=== PATIENT | male | born 1940 | race Caucasian/White ===

== ENCOUNTER → 2018-04-20 10:49 | Outpatient (CLI) | payer MEDICARE, OTHER, SELFPAY ==
[2018-04-20 13:27] LABS: ALB/GLOB Ratio 1.1 RATIO (0.9-2.4); AST(SGOT) 16 U/L (15-37); Alanine Aminotransfer ALT/SGPT 22 U/L (16-61); Albumin, Serum 3.8 g/dL (3.2-5.0); Alkaline Phosphatase 53 U/L (45-117); Anion Gap 11 (5-15); BUN 19 mg/dL (7-18); BUN/Creat Ratio 18.6 RATIO (10-20); Calcium,Total 8.7 mg/dL (8.5-10.1); Chloride 107 mmol/L (98-107); Creatinine, Serum 1.02 mg/dL (0.70-1.30); EST Glomerular Filtration Rate 75 mL/min (>60); Est Glom Filt Rate - Afr Amer 91 mL/min (>60); Globulin 3.4 g/dL (2.2-4.2); Glucose 100 mg/dL (74-106); Potassium 4.3 mmol/L (3.5-5.1); Protein, Total 7.2 g/dL (6.4-8.2); Sodium Level 141 mmol/L (136-145); Thyroid Stim Hormone (TSH) 1.37 uIU/mL (0.358-3.74)
[2018-04-20 13:32] LABS: Basophil# 0.04 X10^3/uL; Basophil% 0.7 % (0-1); Eosinophil# 0.18 X10^3/uL; Eosinophils% 3.3 % (0-5); Hematocrit 44.9 % (40-54); Hemoglobin 14.7 g/dl (13.0-16.5); Lymphocyte % 27.5 % (19-41); Mean Corp Hgb Conc 32.7 g/gl (32-36); Mean Corpuscular Hgb 30.2 pg (27.0-32.0); Mean Corpuscular Volume 92.4 fL (80-94); Mean Platelet Vol. 11.4 fl (6.2-12.0); Monocyte# 0.68 X10^3/uL; Monocyte% 12.5 % (0-10); Neutrophil # 3.04 X10^3/uL (2.7-7.7); Neutrophil % 55.8 % (47-70); Platelet Count 181 K/mm3 (150-450); RBC Distribution Width CV 13.3 % (11.6-14.6); RBC Distribution Width SD 44.6 fl (35.1-43.9); Red Blood Count 4.86 M/mm3 (4.6-6.2); White Blood Count 5.5 K/mm3 (4.4-11.0)
[2018-04-20 13:39] LABS: POSITIVE COUNT NO; POSITIVE DIFFERENTIAL NO; POSITIVE MORPHOLOGY NO
== END ==
PROVIDERS: Family Provider Family Medicine; PCP Family Medicine; Visit Provider Family Medicine
DX: I10 Essential (primary) hypertension (principal); I70.1 Atherosclerosis of renal artery; E78.5 Hyperlipidemia, unspecified
CPT/HCPCS: 36415; 80053; 84443; 85025

== ENCOUNTER → 2019-08-03 10:19 | Outpatient (CLI) | payer MEDICARE, OTHER, SELFPAY ==
[2016-03-13 18:53] VITALS: BMI 28.8
[2019-08-03 12:44] LABS: Absolute Lymphocyte Count 1.41 X10^3/uL (0.83-4.51); Absolute Neutrophil Count 2.8 X10^3/uL (2.0-7.7); Basophil# 0.04 X10^3/uL; Basophil% 0.8 % (0-1); Eosinophil# 0.19 X10^3/uL; Eosinophils% 3.8 % (0-5); Hematocrit 43.7 % (40-54); Hemoglobin 14.2 g/dL (13.0-16.5); Lymphocyte # 1.41 X10^3/ul (4.0); Lymphocyte % 28.3 % (19-41); Mean Corp Hgb Conc 32.5 g/dL (32-36); Mean Corpuscular Hgb 30.1 pg (27.0-32.0); Mean Corpuscular Volume 92.6 fL (80-94); Mean Platelet Vol. 11.2 fl (6.2-12.0); Monocyte# 0.55 X10^3/uL; NRBC Flagged by Analyzer 0 % (0-5); Neutrophil # 2.78 X10^3/uL (2.7-7.7); Neutrophil % 55.9 % (47-70); Platelet Count 190 K/mm3 (150-450); RBC Distribution Width SD 44.2 fl (35.1-43.9); Red Blood Count 4.72 M/mm3 (4.6-6.2)
[2019-08-03 13:11] LABS: ALB/GLOB Ratio 1.1 RATIO (0.9-2.4); AST(SGOT) 17 U/L (15-37); Alanine Aminotransfer ALT/SGPT 27 U/L (16-61); Albumin, Serum 3.9 g/dL (3.2-5.0); Alkaline Phosphatase 69 U/L (45-117); Anion Gap 3 (5-15); BUN 17 mg/dL (7-18); BUN/Creat Ratio 18.7 RATIO (10-20); Calcium,Total 8.6 mg/dL (8.5-10.1); Chloride 107 mmol/L (98-107); Creatinine, Serum 0.91 mg/dL (0.70-1.30); EST Glomerular Filtration Rate 86 mL/min (>60); Est Glom Filt Rate - Afr Amer 104 mL/min (>60); Globulin 3.4 g/dL (2.2-4.2); Glucose 110 mg/dL (74-106); Potassium 4.4 mmol/L (3.5-5.1); Protein, Total 7.3 g/dL (6.4-8.2); Sodium Level 140 mmol/L (136-145); Thyroid Stim Hormone (TSH) 2.32 uIU/mL (0.358-3.74)
[2019-08-05 12:07] LABS: Testosterone, Free 8.19 ng/dL (5.00-21.00)
[2019-08-05 13:44] LABS: Testosterone, % Free 1.91 % (1.50-4.20); Testosterone, Total 429 ng/dL (264-916)
== END ==
PROVIDERS: Family Provider Family Medicine; PCP Family Medicine; Visit Provider Family Medicine
DX: R73.01 Impaired fasting glucose (principal); I10 Essential (primary) hypertension; R68.82 Decreased libido
CPT/HCPCS: 36415; 80053; 84402; 84403; 84443; 85025

== ENCOUNTER → 2019-10-16 11:34 | Outpatient (CLI) | payer MEDICARE, OTHER, SELFPAY ==
[2016-03-13 18:53] VITALS: BMI 28.8
[2019-10-16 16:07] LABS: ALB/GLOB Ratio 1.1 RATIO (0.9-2.4); AST(SGOT) 18 U/L (15-37); Alanine Aminotransfer ALT/SGPT 26 U/L (16-61); Alkaline Phosphatase 63 U/L (45-117); Anion Gap 5 (5-15); BUN 15 mg/dL (7-18); BUN/Creat Ratio 17.9 RATIO (10-20); Calcium,Total 8.9 mg/dL (8.5-10.1); Chloride 107 mmol/L (98-107); Creatinine, Serum 0.84 mg/dL (0.70-1.30); EST Glomerular Filtration Rate 94 mL/min (>60); Est Glom Filt Rate - Afr Amer 113 mL/min (>60); Globulin 3.5 g/dL (2.2-4.2); Glucose 106 mg/dL (74-106); Potassium 4.2 mmol/L (3.5-5.1); Protein, Total 7.5 g/dL (6.4-8.2); Sodium Level 140 mmol/L (136-145); T4 Free Direct 1.07 ng/dL (0.76-1.46); Thyroid Stim Hormone (TSH) 2.31 uIU/mL (0.358-3.74)
[2019-10-16 16:27] LABS: Absolute Lymphocyte Count 1.26 X10^3/uL (0.83-4.51); Absolute Neutrophil Count 3.5 X10^3/uL (2.0-7.7); Basophil# 0.05 X10^3/uL; Basophil% 0.9 % (0-1); Eosinophil# 0.18 X10^3/uL; Eosinophils% 3.3 % (0-5); Hematocrit 43.9 % (40-54); Hemoglobin 14.1 g/dL (13.0-16.5); Lymphocyte # 1.26 X10^3/ul (4.0); Mean Corp Hgb Conc 32.1 g/dL (32-36); Mean Corpuscular Hgb 29.6 pg (27.0-32.0); Mean Corpuscular Volume 92.2 fL (80-94); Mean Platelet Vol. 10.8 fl (6.2-12.0); Monocyte% 9.1 % (0-10); NRBC Flagged by Analyzer 0 % (0-5); Neutrophil # 3.48 X10^3/uL (2.7-7.7); Neutrophil % 63.5 % (47-70); Platelet Count 212 K/mm3 (150-450); RBC Distribution Width CV 13.2 % (11.6-14.6); RBC Distribution Width SD 44.7 fl (35.1-43.9); Red Blood Count 4.76 M/mm3 (4.6-6.2); White Blood Count 5.5 K/mm3 (4.4-11.0)
== END ==
PROVIDERS: PCP Family Medicine; Visit Provider Family Medicine
DX: I10 Essential (primary) hypertension (principal); I70.1 Atherosclerosis of renal artery; G45.9 Transient cerebral ischemic attack, unspecified
CPT/HCPCS: 36415; 80053; 84439; 84443; 85025

== ENCOUNTER → 2019-10-20 08:35 | Outpatient (CLI) | payer MEDICARE, OTHER, SELFPAY ==
--- NOTE | 2019-10-20 08:38 | RDU_ITS ---
Reason For Study: Hx of stents, HTN Right Renal Artery Left Renal Artery Right renal artery ostium Left renal artery ostium 212.2/37.5 RSV/EDV. 144.11/27.5 PSV/EDV. Right renal artery proximal Left renal artery proximal PSV/EDV 186.3/31 PSV/EDV. 141.5/30.1 . Right renal artery mid 208.9/27.8 Left renal artery mid 160.5/31 PSV/EDV. PSV/EDV . Right renal artery distal 90.1/14.8 Left renal artery distal 156.6/31 PSV/EDV. PSV/EDV. Right RAR 2.56. Left RAR 1.97. Right Renal Parenchyma Left Renal Parenchyma Upper Pole Medula 28.9/9.7 PSV/EDV. Left upper pole medulla 33.3/6.9 Right upper pole medulla EDR 0.34 . PSV/EDV . Right upper pole medulla R.I. Left upper pole medulla EDR 0.21 . 0.66 . Left upper pole medulla R.I. 0.79 . Upper [place] Cortx 23.4/6.9 PSV/EDV. UP Cortex 24.5/6.4 PSV/EDV. Right upper pole cortex EDR 0.29 . Left upper pole cortex EDR 0.26 . Right upper pole cortex R.I. 0.70 . Left upper pole cortex R.I. 0.74 . Right lower Pole medulla 35.3/10.6 Left lower Pole medulla 37.7/9.1 PSV/EDV . PSV/EDV . Right lower pole medulla EDR 0.30 . Left lower pole medulla EDR 0.24 . Right lower pole medulla R.I. Left lower pole medulla R.I. 0.76 . 0.70 . Lower Pole Cortx 17.4/4.7 PSV/EDV. Lower Pole Cortex 21.6/6.9 PSV/EDV. Left lower pole cortex EDR 0.27 . Right lower pole cortex EDR 0.32 . Left lower pole cortex R.I. 0.73 . Right lower pole cortex R.I. 0.68 . Left Renal Hilar Right Renal Hilar LT Hilar avg 49/11.6 PSV/EDV . Right Hilar avg 54.4/10.6 PSV/EDV. Left hilar acceleration time 40 Right hilar acceleration time 60 m/sec. m/sec. Left Renal Dimensions Right Renal Dimensions Left kidney size 9.86 cm . Right kidney size 9.07 cm . Left cortical dimension 1.65 cm . Right cortical dimension 1.80 cm . Hypoechoic area on the left kidney measuring 5.46 x 6.02 cm. Area is nonvascular. Aorta Proximal abdominal aorta 1.27 x 1.26 cm . Proximal abdominal aorta peak systolic velocity is 81.5 cm/sec . Distal abdominal aorta 2.54 x 2.62 cm . Distal abdominal aorta peak systolic velocity is 103.4 cm/sec . Interpretation Summary The intra-abdominal aorta is ectatic, though not frankly aneurysmal. Right renal artery velocities are elevated. Left renal artery velocities are normal. Acceleration times are normal bilaterally. Renal-aortic ratios are also bilaterally normal. There is no evidence of hemodynamically significant renal artery stenosis on either side. The right cortical dimension is increased. The left cortical dimension is increased. Kidneys appear normal in size bilaterally. A large, non-vascular, hypoechoic structure is noted on the left kidney, measuring 5.46 cm x 6.02 cm. This probably represents a renal cyst. Clinical correlation is advised. Ordering Physician: Vern Valentin Referring Physician: Vern Valentin Performed By: Scarlet eLach RVT
== END ==
PROVIDERS: PCP Family Medicine; Referring Provider Family Medicine; Visit Provider Family Medicine
DX: I70.1 Atherosclerosis of renal artery (principal); I10 Essential (primary) hypertension; R51 Headache; Z86.73 Personal history of transient ischemic attack (TIA), and cerebral infarction without residual deficits
CPT/HCPCS: 93975

== ENCOUNTER 2020-09-12 09:48 | Outpatient (RCR) | payer MEDICARE, OTHER, SELFPAY ==
[2016-03-13 18:53] VITALS: BMI 28.8
== END 2020-09-12 23:59 ==
LOC: IMMUN 09:48
PROVIDERS: PCP Family Medicine; Visit Provider Family Medicine
DX: Z23 Encounter for immunization (principal)
CPT/HCPCS: 0011A; 0012A; 91301

== ENCOUNTER → 2020-10-07 16:18 | Outpatient (CLI) | payer MEDICARE, OTHER, SELFPAY ==
--- NOTE | 2020-10-07 16:22 | CT_ITS ---
STUDY: CT ABDOMEN WITH CONTRAST REASON FOR EXAM: Male, 80 years old. Upper quadrant mass for 2 weeks. Controlled hypertension.. RADIATION DOSAGE (If Supplied By Facility): CTDIvol = ( 15.84 ) mGy, DLP = ( 610.11 ) mGycm TECHNIQUE: Transaxial images were obtained post I.V. administration of IV 100mL Isovue-300, and oral contrast. Sagittal and coronal images were reconstructed. Individualized dose optimization techniques were used for this CT. COMPARISON: Renal ultrasound October 20, 2019. Renal ultrasound February 13, 2016. FINDINGS: The visualized lung bases are unremarkable. Mild cardiomegaly. Coronary artery calcifications. No pericardial effusion. Scattered hepatic cysts the largest measuring 1.2 cm. Normal gallbladder and extrahepatic biliary system. Normal spleen. Normal pancreas. Normal right adrenal gland. 0.7 cm low-attenuation nodule left adrenal gland suggestive of a myelolipoma. Normal right kidney. 5.2 cm exophytic simple cyst posterior cortex superior pole left kidney not significantly changed since the prior ultrasound. Apparent stents involving the origin of both renal arteries. Stomach is not well distended limiting evaluation. Normal small intestine. Normal colon. The appendix is visualized and appears normal. No intra-abdominal free air. There is diffuse atherosclerotic calcification of the abdominal aorta, with mild ectasia. AP diameter of the distal abdominal aorta measures 2.7 cm. Mild dilatation of proximal common iliac arteries. Normal inferior vena cava. Normal retroperitoneum. Normal abdominal wall. Multilevel degenerative changes of the lower abdominal and upper lumbar spine. CT/Abdomen WITH IV Contrast IMPRESSION: 5 cm simple cyst superior pole left kidney not significantly changed. Mild cardiomegaly. Coronary artery calcifications. Scattered hepatic cysts. 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 Diffuse atherosclerotic calcification of the abdominal aorta with ectasia. Apparent renal artery stents. Electronically Signed: Aldair Chandler MD at 3:01 EST , Service support ,
[2020-10-07 16:40] LABS: CREATININE FINGERSTICK 1.1 mg/dL (0.70-1.30); EGFR FINGERSTICK > 60.0000 mL/min (>60)
== END ==
PROVIDERS: PCP Family Medicine; Referring Provider Family Medicine; Visit Provider Family Medicine
DX: R07.89 Other chest pain (principal); K43.9 Ventral hernia without obstruction or gangrene
CPT/HCPCS: 74160; Q9967

== ENCOUNTER → 2020-10-31 07:42 | Outpatient (CLI) | payer MEDICARE, OTHER, SELFPAY ==
--- NOTE | 2020-10-31 07:45 | CT_ITS ---
STUDY: CTA HEAD AND NECK WITH CONTRAST REASON FOR EXAM: Male, 80 years old. TIA''S W/FACIAL NUKBNESS/BLURRY/DISTORTED/R ARM NUMBNESS -- R CAROTID BRUIT RADIATION DOSAGE (If Supplied By Facility): CTDIvol = ( 29.48 ) mGy, DLP = ( 1550.94 ) mGycm TECHNIQUE: CT angiography was performed with a multi-detector CT scanner. Data acquisition was obtained from the skull base through the vertex following intravenous administration of . MIP images were reconstructed from the axial data set. Post-processing of the angiographic images was performed, with multiplanar reformation and 3D reconstruction. Individualized dose optimization techniques were used for this CT. COMPARISON: No relevant priors. FINDINGS: Normal bilateral petrous carotid arteries. There is calcified plaque formation of the right cavernous carotid artery, without a cross-sectional luminal stenosis. There is calcified plaque formation of the left cavernous carotid artery, without a cross-sectional luminal stenosis. Normal right A1 segments of the anterior cerebral artery. Normal left A1 segments of the anterior cerebral artery. Normal intact anterior communicating artery (ACOM). Normal bilateral A2 segments of the anterior cerebral arteries. Normal right M1 and M2 segments of the middle cerebral arteries, with a normal M1 bifurcation. Normal left M1 and M2 segments of the middle cerebral arteries, with a normal M1 bifurcation. Normal right posterior communicating artery (PCOM). Normal left posterior communicating artery (PCOM). Normal bilateral vertebral arteries. Normal basilar artery with a normal basilar bifurcation. The visualized bilateral superior cerebellar (SCA) arteries are normal. Normal bilateral P1, P2 and visualized P3 segments of the posterior cerebral arteries. There is no demonstrated aneurysm of the [place]. Mild degree of cerebral atrophy. AORTIC ARCH: There is atherosclerotic calcific plaque formation of the aortic arch and great vessels arising from the aortic arch, without a hemodynamically significant stenosis. There is evidence of moderate amount of mural thrombus along the posterior aspect of the aortic arch and proximal descending thoracic aorta. There is a normal origin of the brachiocephalic, left common carotid, and left subclavian arteries. RIGHT CAROTID ARTERIES: Normal right common carotid artery (CCA). Normal right common carotid bulb. There is severe atherosclerotic plaque formation of the origin of the right internal carotid artery with a near complete occlusion. Normal visualized cervical portion of the right internal carotid artery. Normal origin of the right external carotid artery (ECA). LEFT CAROTID ARTERIES: Normal left common carotid artery (CCA). Normal left common carotid bulb. There is severe atherosclerotic plaque formation of the origin of the left internal carotid artery with a near complete occlusion. Normal visualized cervical portion of the left internal carotid artery. Normal origin of the left external carotid artery (ECA). VERTEBRAL ARTERIES: Normal bilateral vertebral arteries. CT/CTA Head AND Neck W/ Contrast IMPRESSION: I grade stenosis at the origins of both the right and left internal carotid arteries due to extensive calcific plaque formation. Electronically Signed: Jorje Wilkes MD at 10:04 EDT , Service support ,
== END ==
PROVIDERS: PCP Family Medicine; Referring Provider Family Medicine; Visit Provider Family Medicine
DX: I65.21 Occlusion and stenosis of right carotid artery (principal); I69.951 Hemiplegia and hemiparesis following unspecified cerebrovascular disease affecting right dominant side; I69.912 Visuospatial deficit and spatial neglect following unspecified cerebrovascular disease
CPT/HCPCS: 70496; 70498; Q9967

== ENCOUNTER → 2020-11-01 07:44 | Outpatient (CLI) | payer MEDICARE, OTHER, SELFPAY ==
[2020-11-01 07:05] VITALS: BMI 29.2
--- NOTE | 2020-11-01 08:00 | RAD_ITS ---
STUDY: X-RAY CHEST REASON FOR EXAM: Male, 80 years old. DYSPNEA TECHNIQUE: PA and lateral views of the chest. COMPARISON: Comparison is made with prior study 04/12/2010. FINDINGS: Minimal increased markings at the lung bases suggestive of mild linear atelectasis. There is no demonstrated pleural abnormality. Normal size heart. Normal mediastinum and zakia. Normal visualized pulmonary arteries. There is atherosclerotic calcification of the aortic arch with tortuosity. There are diffuse degenerative changes of the visualized thoracic spine. Normal visualized ribs, clavicles, and shoulders. There is no demonstrated abnormality of the visualized soft tissue structures of the upper abdomen. RAD/Chest PA and Lateral IMPRESSION: Mild degree of linear atelectasis at the right lung base. Electronically Signed: Jorje Wilkes MD at 8:40 EDT , Service support ,
[2020-11-01 08:41] LABS: Hematocrit 44.3 % (40-54); Hemoglobin 14.3 g/dL (13.0-16.5); Mean Corp Hgb Conc 32.3 g/dL (32-36); Mean Corpuscular Volume 89.9 fL (80-94); Mean Platelet Vol. 10.6 fl (6.2-12.0); Platelet Count 182 K/mm3 (150-450); RBC Distribution Width CV 13.2 % (11.6-14.6); RBC Distribution Width SD 43.8 fl (35.1-43.9); Red Blood Count 4.93 M/mm3 (4.6-6.2); White Blood Count 5.4 K/mm3 (4.4-11.0)
[2020-11-01 09:14] LABS: ALB/GLOB Ratio 1.2 RATIO (0.9-2.4); AST(SGOT) 17 U/L (15-37); Alanine Aminotransfer ALT/SGPT 19 U/L (16-61); Albumin, Serum 3.8 g/dL (3.2-5.0); Alkaline Phosphatase 68 U/L (45-117); Anion Gap 6 (5-15); BUN 14 mg/dL (7-18); Calcium,Total 8.9 mg/dL (8.5-10.1); Chloride 106 mmol/L (98-107); Cholesterol 265 mg/dL (200); Creatinine, Serum 0.93 mg/dL (0.70-1.30); EST Glomerular Filtration Rate 83 mL/min (>60); Est Glom Filt Rate - Afr Amer 100 mL/min (>60); Globulin 3.3 g/dL (2.2-4.2); Glucose 122 mg/dL (74-106); High Density Lipoprotein 52 mg/dL; Potassium 3.6 mmol/L (3.5-5.1); Protein, Total 7.1 g/dL (6.4-8.2); Sodium Level 142 mmol/L (136-145); Triglycerides 169 mg/dL; Very Low Density Lipoprotein 34 mg/dL (5-40)
== END ==
PROVIDERS: PCP Family Medicine; Referring Provider Surgery; Visit Provider Surgery
DX: R06.00 Dyspnea, unspecified (principal); Z86.16 Personal history of COVID-19; R20.0 Anesthesia of skin; Z01.818 Encounter for other preprocedural examination
CPT/HCPCS: 36415; 71046; 80053; 80061; 85027

== ENCOUNTER → 2020-11-04 08:05 | Outpatient (CLI) | payer MEDICARE, OTHER, SELFPAY ==
[2020-11-01 07:05] VITALS: BMI 29.2
--- NOTE | 2020-11-04 08:07 | MRI_ITS ---
STUDY: MRI BRAIN WITH AND WITHOUT CONTRAST REASON FOR EXAM: Male, 80 years old. facial numbness TECHNIQUE: Standardized multiplanar fat and water weighted pulse sequences were obtained. IV DOTARM 17CC was administered for the contrast portion of the examination. COMPARISON: CT 10/31/2020 FINDINGS: There is mild cerebral atrophy with widening of the extra-axial spaces and ventricular dilatation. There are a limited number of small white matter hyperintensities, distributed throughout the deep white matter tracts of the cerebral hemispheres, consistent with mild chronic white matter ischemic changes. There is no evidence for recent intracranial ischemia or other cause of cytotoxic edema on diffusion weighted imaging (DWI). Normal T2* images of the brain without demonstrated susceptibility artifact. There is no demonstrated hemosiderin stain. Normal bilateral basal ganglia. Normal thalami. There is no extra-axial fluid accumulation. Normal flow voids within the major intracranial circulation suggesting patency by spin echo criteria. Normal venous enhancement. There is no enhancing intra-axial or extra-axial abnormality. Normal sella turcica, pituitary gland, infundibular stalk, optic chiasm and hypothalamus. Normal tectal plate and pineal gland. Normal midbrain, stone and medulla. Normal cerebellum. Normal basal cisterns. Normal bilateral temporal bones. Normal bilateral internal auditory canals. No demonstrated orbital abnormality, within the constraints of a routine brain study. Normal visualized paranasal sinuses. Normal calvarium and skull base. Normal visualized soft tissue structures. Normal visualized upper cervical spine. MRI/Brain W/WO Contrast IMPRESSION: Involutional changes of the brain, as described above. No acute infarct. Electronically Signed: Tucker Bear MD at 10:09 EDT Tel , Service support ,
--- NOTE | 2020-11-04 09:26 | CDU_ITS ---
Reason For Study: Carotid stenosis Rt. Velocities/BP Lt. Velocities/BP Prox CCA 65/11 cm/sec. Prox CCA 115/23 cm/sec. Mid CCA 70/18 cm/sec. Mid CCA 86/20 cm/sec. Dist CCA 62/16 cm/sec. Dist CCA 66/17 cm/sec. Prox ICA 290/51 cm/sec. Prox ICA 367/124 cm/sec. Mid ICA 244/60 cm/sec. Mid ICA 225/41 cm/sec. Dist ICA 80/32 cm/sec. Dist ICA 107/41 cm/sec. Rt. ICA/CCA = 4.14. Lt. ICA/CCA = 4.27. Prox ECA 222/15 cm/sec. Prox ECA 131/6 cm/sec. Rt. Vert. 41 cm/sec. Lt. Vert. 21/7 cm/sec. Right Extracranial There is heterogeneous, irregular atherosclerotic plaque noted in the right common carotid artery. There is heterogeneous, irregular atherosclerotic plaque noted in the right internal carotid artery. There is heterogeneous, irregular atherosclerotic plaque noted in the right external carotid artery. Antegrade flow is noted in the right vertebral artery. Left Extracranial There is heterogeneous, irregular atherosclerotic plaque noted in the left common carotid artery. There is heterogeneous, irregular atherosclerotic plaque noted in the left internal carotid artery. The left internal carotid artery is very tortuous. There is no significant atherosclerotic plaque noted in the left external carotid artery. Antegrade flow is noted in the left vertebral artery. Procedure Carotid Duplex [id number]. Prelim given to Elida at Dr. Rocha's office. Exam performed in department. Interpretation Summary Extensive irregular calcific plaque distal right common carotid and proximal right internal and external carotid arteries Greater than 70% stenosis right internal carotid artery Greater than 50% stenosis right external carotid artery Irregular calcific plaque with shadowing proximal left internal carotid artery with significant velocity elevation. Greater than 70% stenosis left proximal internal carotid artery. Based upon elevated diastolic velocity possible greater than 80% stenosis Less than 50% stenosis left external carotid Patent and antegrade vertebrals bilaterally Ordering Physician: Vern Valentin Referring Physician: Oscar Rocha Performed By: Page Kerr RDCS, RVT
== END ==
PROVIDERS: PCP Family Medicine; Referring Provider Surgery; Visit Provider Surgery
DX: I65.23 Occlusion and stenosis of bilateral carotid arteries (principal); R20.0 Anesthesia of skin
CPT/HCPCS: 70553; 93880; A9575

== ENCOUNTER → 2020-11-06 08:02 | Outpatient (CLI) | payer MEDICARE, OTHER, SELFPAY ==
--- NOTE | 2020-11-06 08:30 | RAD_ITS ---
INDICATION: RIGHT RIB PAIN EXAMINATION/TECHNIQUE: X-RAY - XR Ribs Unilateral 4 Views COMPARISON: None. FINDINGS: SOFT TISSUES: No soft tissue swelling or gas. BONES: No displaced fracture. No sclerotic or destructive changes observed. VISUALIZED LUNGS: Clear. No pneumothorax. RAD/Ribs Unil 2V No CXR IMPRESSION: No evidence of displaced rib fracture. Electronically Signed: Rudy Amador MD at 19:14 EDT Tel , Service support ,
== END ==
PROVIDERS: PCP Family Medicine; Referring Provider Surgery; Visit Provider Surgery
DX: R07.81 Pleurodynia (principal)
CPT/HCPCS: 71100

== ENCOUNTER → 2020-11-08 09:47 | Outpatient (CLI) | payer MEDICARE, OTHER, SELFPAY ==
--- NOTE | 2020-11-08 09:50 | US_ITS ---
STUDY: ABDOMINAL ULTRASOUND - RIGHT UPPER QUADRANT REASON FOR VISIT: Male, 80 years old ruq pain for one week TECHNIQUE: Ultrasound evaluation of the right upper quadrant was performed with real-time and static mcintosh-scale imaging. TECHNICAL QUALITY: Adequate. COMPARISON: None. FINDINGS: Liver: The liver measures 11.7 cm. There is increased echogenicity consistent with fatty infiltration. The bile ducts are within normal limits. There is hepatic color flow. The direction of portal flow is hepatopetal. 2 adjacent cysts are seen in the right lobe. The larger measures 1.3 cm x 0.9 cm x 0.9 cm. Gallbladder: Normal distended gallbladder. The gallbladder wall measures 2 mm. There is a negative sonographic Roche''s sign. There is no pericholecystic fluid. There are no gallstones. Common Bile Duct (C.B.D.): The common bile duct measures 2 mm. Pancreas: Normal size of the head, body and tail of the pancreas. There is increased echogenicity of the pancreas. There is no demonstrated pancreatic mass or cyst. Right Kidney: Normal size of the right kidney. The right kidney measures 9.2 cm x 5.3 cm x 6.1 cm. Normal renal cortex. The right cortex measures 1.5 cm. There is no demonstrated renal mass or cyst. There is no right hydronephrosis. US/Gallbladder IMPRESSION: Fatty infiltration of the liver. There are 2 small adjacent cysts in the right lobe of the liver. Electronically Signed: Jorje Wilkes MD at 13:53 EDT , Service support ,
== END ==
PROVIDERS: PCP Family Medicine; Referring Provider Surgery; Visit Provider Surgery
DX: R10.11 Right upper quadrant pain (principal)
CPT/HCPCS: 76705

== ENCOUNTER → 2020-11-20 07:12 | Outpatient (CLI) | payer MEDICARE, OTHER, SELFPAY ==
--- NOTE | 2020-11-20 07:15 | CT_ITS ---
STUDY: CT ABDOMEN WITH CONTRAST REASON FOR EXAM: Male, 80 years old. abdominal pain -- oral and IV contrast RADIATION DOSAGE (If Supplied By Facility): CTDIvol = ( 13.92 ) mGy, DLP = ( 652.51 ) mGycm TECHNIQUE: Transaxial images were obtained post I.V. administration of Oral and amp; IV Readi-CAT and amp; 100mL Isovue-300, and oral contrast. Sagittal and coronal images were reconstructed. Individualized dose optimization techniques were used for this CT. COMPARISON: None. FINDINGS: The visualized lung bases are unremarkable. The visualized portions of the heart are within normal limits. Multiple liver cysts the largest measures 1.2 cm. Normal gallbladder and extrahepatic biliary system. Normal spleen. Normal pancreas. Normal bilateral adrenal glands. Bilateral renal cysts are noted the largest measures 5 cm and left kidney. Normal visualized stomach. Normal small intestine. There is diverticulosis, with thickening of the colon wall, and pericolonic inflammation changes consistent with acute diverticulitis. There is diffuse atherosclerotic calcification of the abdominal aorta, with 3.1 cm infrarenal abdominal aortic aneurysm. Normal inferior vena cava. Normal retroperitoneum. Normal abdominal wall. Normal osseous structures. CT/Abdomen WITH IV Contrast IMPRESSION: Bilateral renal cysts are noted the largest measures 5 cm and left kidney. Infrarenal abdominal aortic aneurysm measuring 3.1 cm in greatest diameter. Multiple liver cysts the largest measures 1.2 cm. Colon diverticulosis. Electronically Signed: Luis Alfredo Elizalde MD at 10:51 EDT Tel , Service support ,
== END ==
PROVIDERS: PCP Family Medicine; Referring Provider Surgery; Visit Provider Surgery
DX: R10.9 Unspecified abdominal pain (principal)
CPT/HCPCS: 74160; Q9967

== ENCOUNTER 2020-12-04 05:17 | Inpatient (IN) | payer MEDICARE, OTHER, SELFPAY ==
--- NOTE | 2020-11-28 12:56 | EKG12_ITS ---
Test Reason : PREOP Blood Pressure : / mmHG Vent. Rate : 064 BPM Atrial Rate : 064 BPM P-R Int : 142 ms QRS Dur : 078 ms QT Int : 410 ms P-R-T Axes : -07 008 033 degrees QTc Int : 422 ms Normal sinus rhythm Normal ECG Confirmed by ABHISHEK ALANIZ, LYUDMILA ([id number]), offline editor LOREN NICK ([id number]) on 11/29/2020 11:55:07 AM Referred By: Oscar Rocha Confirmed By:LYUDMILA WEISS MD
[2020-11-28 13:42] LABS: Hematocrit 40.5 % (40-54); Hemoglobin 13.1 g/dL (13.0-16.5); Mean Corp Hgb Conc 32.3 g/dL (32-36); Mean Corpuscular Volume 89.6 fL (80-94); Mean Platelet Vol. 10.9 fl (6.2-12.0); Platelet Count 169 K/mm3 (150-450); RBC Distribution Width CV 13.8 % (11.6-14.6); RBC Distribution Width SD 44.9 fl (35.1-43.9); Red Blood Count 4.52 M/mm3 (4.6-6.2); White Blood Count 6.3 K/mm3 (4.4-11.0)
[2020-11-28 14:04] LABS: International Normalized Ratio 1.1; Prothrombin Time (Protime)PT. 13.9 SECONDS (11.7-14.9)
[2020-11-28 14:05] LABS: Partial Thromboplast Time 31.6 Seconds (24.1-36.2)
[2020-11-28 14:13] LABS: AST(SGOT) 22 U/L (15-37); Alanine Aminotransfer ALT/SGPT 26 U/L (16-61); Albumin, Serum 3.9 g/dL (3.2-5.0); Alkaline Phosphatase 83 U/L (45-117); Bilirubin, Direct 0.28 mg/dL (0.00-0.30); Protein, Total 6.9 g/dL (6.4-8.2)
[2020-11-28 14:14] LABS: Anion Gap 3 (5-15); BUN 15 mg/dL (7-18); Chloride 108 mmol/L (98-107); Creatinine, Serum 0.84 mg/dL (0.70-1.30); EST Glomerular Filtration Rate 94 mL/min (>60); Est Glom Filt Rate - Afr Amer 114 mL/min (>60); Glucose 113 mg/dL (74-106); Potassium 3.9 mmol/L (3.5-5.1); Sodium Level 141 mmol/L (136-145)
[2020-12-04] VITALS (24 sets, daily range): BP systolic 94–141; BP diastolic 46–87; PULSE 67–83; RESP 14–18; TEMP 36.4–36.9; O2SAT 94–99; BMI 28.9
--- NOTE | 2020-12-04 06:09 | HP.PCM_ITS ---
Problem List (1) Symptomatic stenosis of both carotid arteries Status: Acute History and Physical Date of Admission: 12/04/20 Intake Visit Reasons: discuss MRI and carotid US Chief Complaint: CAROTID STENOSIS Allergies Penicillins Allergy (Verified 11/06/20 07:23) Other Medications Amlodipine [Norvasc] 10 mg PO DAILY 01/27/16 [History Confirmed 11/06/20] carvedilol 25 mg tablet tablet PO 11/01/20 [History Confirmed 11/06/20] atorvastatin 80 mg tablet 80 mg PO DAILY tablet 11/06/20 [History Confirmed 11/06/20] [facility] Medical History (Updated 11/01/20 @ 07:[address] Oscar Rocha MD) Hyperlipidemia (Acute) History of stent insertion of renal artery (Acute) Hypertension (Chronic) Abdominal muscle strain (Acute) History of COVID-19 (Acute) Symptomatic stenosis of both carotid arteries (Acute) TIA (transient ischemic attack) (Acute) HTN (hypertension) (Chronic) History of renal artery stenosis (Chronic) Osteoarthritis (Chronic) Sleep apnea (Chronic) Spinal stenosis (Chronic) History of COVID-19 (Resolved) Surgical History (Updated 11/01/20 @ 07:04 by Nguyen Villanueva) History of stent insertion of renal artery (Acute) Family History Father Heart disease Myocardial infarction Cancer liver Mother Diabetes Brother Diabetes Social History (Updated 11/06/20 @ 07:[address] Oscar Rocha MD) Smoking Status: Unknown if ever smoked HPI HPI HPI: PRASANNA INGRAM, is a 80 M who presents to the office today for surgical follow-up of bilateral extracranial carotid artery occlusive disease. The patient has been symptomatic with episodes of right upper lip numbness. I had him obtain carotid duplex imaging and brain MRI. Fortunately brain MRI does not demonstrate an acute stroke but simple involutional changes. The carotid duplex exam demonstrates greater than 70% stenosis bilateral internal carotid arteries. The velocities are significantly elevated on the left suspicious for greater than 80% stenosis. He presents today to discuss plans for his carotid surgery however he had complained of a right upper quadrant pain and his previous visit. He states that has become far worse. He has burned his anterior abdominal wall with a heating pad. He had suggested that he had a muscular strain related to lifting a heavy battery. He is claiming now that he does not have an appetite. Whereas since he had COVID-19 he has been constipated claims he had some diarrhea earlier today. He has not noticed any bright red blood per rectum or melena. Denies fever. [facility] Imaging Services [address] [place] [address] Brain W/WO Contrast MR#: [id number] Name: PRASANNA INGRAMRep #:[id number] : 1940M 80 From: Tucker Bear MD PCP:Dr. Vern Valentin MD Status:REG CLI Study:Brain W/WO Contrast Date of Exam:11/04/20 Exam#[id number] Ordering Dr: Oscar Rocha MD STUDY: MRI BRAIN WITH AND WITHOUT CONTRAST REASON FOR EXAM: Male, 80 years old. facial numbness TECHNIQUE: Standardized multiplanar fat and water weighted pulse sequences were obtained. IV DOTARM 17CC was administered for the contrast portion of the examination. COMPARISON: CT 10/31/2020 FINDINGS: There is mild cerebral atrophy with widening of the extra-axial spaces and ventricular dilatation. There are a limited number of small white matter hyperintensities, distributed throughout the deep white matter tracts of the cerebral hemispheres, consistent with mild chronic white matter ischemic changes. There is no evidence for recent intracranial ischemia or other cause of cytotoxic edema on diffusion weighted imaging (DWI). Normal T2* images of the brain without demonstrated susceptibility artifact. There is no demonstrated hemosiderin stain. Normal bilateral basal ganglia. Normal thalami. There is no extra-axial fluid accumulation. Normal flow voids within the major intracranial circulation suggesting patency by spin echo criteria. Normal venous enhancement. There is no enhancing intra-axial or extra-axial abnormality. Normal sella turcica, pituitary gland, infundibular stalk, optic chiasm and hypothalamus. Normal tectal plate and pineal gland. Normal midbrain, stone and medulla. Normal cerebellum. Normal basal cisterns. Normal bilateral temporal bones. Normal bilateral internal auditory canals. No demonstrated orbital abnormality, within the constraints of a routine brain study. Normal visualized paranasal sinuses. Normal calvarium and skull base. Normal visualized soft tissue structures. Normal visualized upper cervical spine. MRI/Brain W/WO Contrast IMPRESSION: Involutional changes of the brain, as described above. No acute infarct. Electronically Signed: Tucker Bear MD at 10:09 EDT Tel , Service support , [facility] [address] [place] [address] Carotid Duplex Ultrasound 11/04/20 0950 MR#: [id number] Name: PRASANNA INGRAMRep #:[id number] : 1940 80From: Oscar Rocha MD Attending Dr: BREANNA Matthewtatus: REG CLI Ordering Dr: Oscar Rocha MDDate: 11/04/20 Location:MRISex: Admitted: Reason For Study: Carotid stenosis Rt. Velocities/BP Lt. Velocities/BP Prox CCA 65/11 cm/sec. Prox CCA 115/23 cm/sec. Mid CCA 70/18 cm/sec. Mid CCA 86/20 cm/sec. Dist CCA 62/16 cm/sec. Dist CCA 66/17 cm/sec. Prox ICA 290/51 cm/sec. Prox ICA 367/124 cm/sec. Mid ICA 244/60 cm/sec. Mid ICA 225/41 cm/sec. Dist ICA 80/32 cm/sec. Dist ICA 107/41 cm/sec. Rt. ICA/CCA = 4.14. Lt. ICA/CCA = 4.27. Prox ECA 222/15 cm/sec. Prox ECA 131/6 cm/sec. Rt. Vert. 41 cm/sec. Lt. Vert. 21/7 cm/sec. Right Extracranial There is heterogeneous, irregular atherosclerotic plaque noted in the right common carotid artery. There is heterogeneous, irregular atherosclerotic plaque noted in the right internal carotid artery. There is heterogeneous, irregular atherosclerotic plaque noted in the right external carotid artery. Antegrade flow is noted in the right vertebral artery. Left Extracranial There is heterogeneous, irregular atherosclerotic plaque noted in the left common carotid artery. There is heterogeneous, irregular atherosclerotic plaque noted in the left internal carotid artery. The left internal carotid artery is very tortuous. There is no significant atherosclerotic plaque noted in the left external carotid artery. Antegrade flow is noted in the left vertebral artery. Procedure Carotid Duplex 81142. Prelim given to Elida at Dr. Rocha's office. Exam performed in department. Interpretation Summary Extensive irregular calcific plaque distal right common carotid and proximal right internal and external carotid arteries Greater than 70% stenosis right internal carotid artery Greater than 50% stenosis right external carotid artery Irregular calcific plaque with shadowing proximal left internal carotid artery with significant velocity elevation. Greater than 70% stenosis left proximal internal carotid artery. Based upon elevated diastolic velocity possible greater than 80% stenosis Less than 50% stenosis left external carotid Patent and antegrade vertebrals bilaterally Ordering Physician: Vern Valentin Referring Physician: Oscar Rocha Performed By: Page Kerr, ABRAHAM, RVT 11/04/20 1206 Date Oscar Rocha MD ADDENDUM by Dr. Oscar Rocha MD on 11/01/20 at 0857 Addendum entered and electronically signed by Oscar Rocha MD 11/01/20 08:57: November 01, 2020 I have received information from [facility] dated April 24, 2016. Transthoracic echocardiogram. Left ventricular cavity size normal. Ejection fraction 60 to 65%. Mild mitral valve regurgitation. Left atrium mildly dilated. Right ventricle systolic pressure 37 mmHg pressure. Right atrium pressure 3 mmHg. EKG at that time showed a sinus rhythm. Exercise stress test April 25, 2016. Negative stress test for ischemia. Ejection fraction 63%. Oscar Rocha M.D., F.A.C.S. Intake Chief Complaint: CAROTID STENOSIS Allergies Penicillins Allergy (Verified 11/01/20 07:08) Other Medications Amlodipine [Norvasc] 10 mg PO DAILY 01/27/16 [History Confirmed 11/01/20] carvedilol 25 mg tablet tablet PO 11/01/20 [History Confirmed 11/01/20] Assessment & Plan Problems 1. Symptomatic stenosis of both carotid arteries I65.23 2. History of COVID-19 Z86.16 3. Strain of abdominal muscle, initial encounter S39.011A 4. Hypertension, unspecified type I10 5. History of stent insertion of renal artery Z98.890 6. Hyperlipidemia, unspecified hyperlipidemia type E78.5 Plan - Dr. Oscar Rocha MD 80-year-old gentleman. Findings consistent with several previous episodes of transient ischemic attack. Findings suggest critical stenosis bilateral internal carotids. I recommend initiation of enteric-coated 325 mg aspirin. We will contact Dr. Vern Valentin's office asking for initiation of a statin medication. We will have laboratory obtained today including his lipid panel as well as a CMP and CBC. The patient states that he had a cardiac work-up at [facility] approximately 3 years ago after a reaction to a blood pressure medicine. We will obtain records from that evaluation. The patient's current pulse oximetry is 99 but he fatigues and gets dyspneic on exertion. He demonstrated some shortness of breath just getting up on the exam table. We will obtain a PA and lateral chest x-ray. We will pursue a brain MRI and attempt to identify previous region of stroke. He does not unilaterally localize with his symptoms and he has suspected bilateral carotid stenosis. Trying to determine which carotid should be addressed first. To further delineate his carotid occlusive disease I recommend carotid duplex imaging we will pursue that. I will have him return the office for further surgical discussion. He is currently aware of the risk and benefits of intervention. He is well aware currently that he is at risk for stroke. I have advised him to cut down on some of his physical activity as we discussed the lifting with a 50 pound battery tissue shoulder level perhaps is a lot for an 80-year-old. Tentatively I anticipate surgical intervention. Carotid artery stenting appears to have increased risk in octogenarians. He has had an opportunity to ask and have questions answered. We will tentatively schedule surgery date. I will have him return to the office so we can help decipher which side might be more symptomatic. I appreciate the opportunity of assisting with surgical care Copy: Dr. Vern Rocha M.D., F.A.C.S. Addendum The patient now corrects himself suggesting that the lip numbness has been right upper lip. This may direct his to treating the right carotid initially. Orders Orders: Comprehensive Metabolic Profil Today Z01.818 Lipid Profile Today R20.0 CBC-Complete Blood Cnt No Diff Today R20.0, Z01.818 Brain W/WO Contrast Today R20.0 Chest PA and Lateral Today R06.00, Z86.16 Carotid Duplex Ultrasound Today I65.23, R20.0 11/01/20 0857<Electronically signed by Oscar Rocha MD> Date Oscar Rocha MD cc: Dr. Vern Valentin MD ~* Signed Intake Vital Signs 11/01/20 Height 5 ft 8 in 11/01/20 Weight: 192 lb 4 oz 11/01/20 BMI 29.2 11/01/20 BP 183/73 H 11/01/20 Blood Pressure Location Rt brachial 11/01/20 Position Sitting 11/01/20 Respiration 18 11/01/20 Pulse 68 11/01/20 Pulse Source NIBP 11/01/20 Temp 97.5 F L 11/01/20 Temp Source Temporal 11/01/20 Pulse Oximetry (%) 99 11/01/20 Oxygen Delivery Method room air Intake Visit Reasons: CAROTID Allergies Penicillins Allergy (Verified 11/01/20 07:08) Other Medications Amlodipine [Norvasc] 10 mg PO DAILY 01/27/16 [History Confirmed 11/01/20] carvedilol 25 mg tablet tablet PO 11/01/20 [History Confirmed 11/01/20] PFSH Medical History (Updated 11/01/20 @ 07:[address] Oscar Rocha MD) Hyperlipidemia (Acute) History of stent insertion of renal artery (Acute) Hypertension (Chronic) Abdominal muscle strain (Acute) History of COVID-19 (Acute) Symptomatic stenosis of both carotid arteries (Acute) TIA (transient ischemic attack) (Acute) HTN (hypertension) (Chronic) History of renal artery stenosis (Chronic) Osteoarthritis (Chronic) Sleep apnea (Chronic) Spinal stenosis (Chronic) History of COVID-19 (Resolved) Surgical History (Updated 11/01/20 @ 07:04 by Nguyen Villanueva) History of stent insertion of renal artery (Acute) Family History (Updated 11/01/20 @ 07:05 by Nguyen Villanueva) Father Heart disease Myocardial infarction Cancer liver Mother Diabetes Brother Diabetes Social History (Updated 11/01/20 @ 07:[address] Oscar Rocha MD) Smoking Status: Unknown if ever smoked HPI HPI HPI: PRASANNA INGRAM, is a 80 M who presents to the office today for surgical consultation regarding bilateral extracranial carotid artery occlusive disease. Patient is referred by Dr. Vern Valentin and a written copy my surgical consult recommendations were returned to him. This is actually quite a complex gentleman. About 2 months ago while shopping had an episode of temporary upper lip numbness. 3 weeks ago it occurred again. He also has had an episode where he was bending over to lift up the TV remote and then suddenly had tremendous disjointed notes of his vision. He thinks that in the past he has had slight cholesterol abnormalities. He is not currently on an antiplatelet agent or statin medication. He did have a CTA of the head neck on October 31, 2020 at the [facility]. This suggest high-grade stenosis of bilateral internal carotid arteries with extensive calcific plaque. His previous surgical intervention includes what sounds like renal artery stenting in 2004. To further complicate his presentation June 2020 he had COVID-19. He fully admits that he is not yet fully recovered. He fatigues easily and still has dyspnea on exertion. Finally just 2 days ago he was lifting a 50 pound truck battery. He lifted that up to shoulder level and felt an acute pain and strain in his right mid abdomen. He states that he quit smoking cigarettes 25 years ago [facility] Imaging Services [address] [place] [address] CTA Head AND Neck W/ Contrast MR#: [id number] Name: PRASANNA INGRAMRep #:[id number] : 1940M 80 From: Jorje Wilkes MD PCP:Dr. Vern Valentin MD Status:REG CLI Study:CTA Head AND Neck W/ Contrast Date of Exam:10/31/20 Exam#[id number] Ordering Dr: Vern Valentin MD STUDY: CTA HEAD AND NECK WITH CONTRAST REASON FOR EXAM: Male, 80 years old. TIA''S W/FACIAL NUKBNESS/BLURRY/DISTORTED/R ARM NUMBNESS -- R CAROTID BRUIT RADIATION DOSAGE (If Supplied By Facility): CTDIvol = ( 29.48 ) mGy, DLP = ( 1550.94 ) mGycm TECHNIQUE: CT angiography was performed with a multi-detector CT scanner. Data acquisition was obtained from the skull base through the vertex following intravenous administration of . MIP images were reconstructed from the axial data set. Post-processing of the angiographic images was performed, with multiplanar reformation and 3D reconstruction. Individualized dose optimization techniques were used for this CT. COMPARISON: No relevant priors. FINDINGS: Normal bilateral petrous carotid arteries. There is calcified plaque formation of the right cavernous carotid artery, without a cross-sectional luminal stenosis. There is calcified plaque formation of the left cavernous carotid artery, without a cross-sectional luminal stenosis. Normal right A1 segments of the anterior cerebral artery. Normal left A1 segments of the anterior cerebral artery. Normal intact anterior communicating artery (ACOM). Normal bilateral A2 segments of the anterior cerebral arteries. Normal right M1 and M2 segments of the middle cerebral arteries, with a normal M1 bifurcation. Normal left M1 and M2 segments of the middle cerebral arteries, with a normal M1 bifurcation. Normal right posterior communicating artery (PCOM). Normal left posterior communicating artery (PCOM). Normal bilateral vertebral arteries. Normal basilar artery with a normal basilar bifurcation. The visualized bilateral superior cerebellar (SCA) arteries are normal. Normal bilateral P1, P2 and visualized P3 segments of the posterior cerebral arteries. There is no demonstrated aneurysm of the [place]. Mild degree of cerebral atrophy. AORTIC ARCH: There is atherosclerotic calcific plaque formation of the aortic arch and great vessels arising from the aortic arch, without a hemodynamically significant stenosis. There is evidence of moderate amount of mural thrombus along the posterior aspect of the aortic arch and proximal descending thoracic aorta. There is a normal origin of the brachiocephalic, left common carotid, and left subclavian arteries. RIGHT CAROTID ARTERIES: Normal right common carotid artery (CCA). Normal right common carotid bulb. There is severe atherosclerotic plaque formation of the origin of the right internal carotid artery with a near complete occlusion. Normal visualized cervical portion of the right internal carotid artery. Normal origin of the right external carotid artery (ECA). LEFT CAROTID ARTERIES: Normal left common carotid artery (CCA). Normal left common carotid bulb. There is severe atherosclerotic plaque formation of the origin of the left internal carotid artery with a near complete occlusion. Normal visualized cervical portion of the left internal carotid artery. Normal origin of the left external carotid artery (ECA). VERTEBRAL ARTERIES: Normal bilateral vertebral arteries. CT/CTA Head AND Neck W/ Contrast IMPRESSION: I grade stenosis at the origins of both the right and left internal carotid arteries due to extensive calcific plaque formation. Electronically Signed: Jorje Wilkes MD at 10:04 EDT , Service support , HPI HPI HPI: PRASANNA INGRAM, is a 80 M who presents to the office today for Exam Const General: cooperative, healthy appearing, comfortable, no acute distress Nutritional Appearance: average body habitus Orientation: alert, awake [facility] Head: normal to inspection Eyes General: appearance normal, both eyes and all related structures Chest Other: Increased anterior posterior diameter Resp Effort & Inspection: normal respiratory effort Auscultation: clear to auscultation bilaterally Cardio Rate: regular rate Rhythm: regular rhythm Other: Bilateral radials 3+. Bilateral brachials 3+. Bilateral carotids 3+. No carotid bruits. Bilateral femorals 3+. Bilateral popliteals 3+. GI Palpation: soft, no hepatosplenomegaly Other: Mild tenderness palpation right mid abdomen. No fascial defect. No ecchymosis. Normal bowel sounds. Not expansile or pulsatile. No bruits Musc Cervical Spine: normal cervical lordosis Skin Other: Scattered ecchymosis left dorsal hand Neuro General: alert, awake Extrem General: no calf tenderness Psych Affect: normal affect Assessment & Plan Problems 1. Symptomatic stenosis of both carotid arteries I65.23 2. History of COVID-19 Z86.16 3. Strain of abdominal muscle, initial encounter S39.011A 4. Hypertension, unspecified type I10 5. History of stent insertion of renal artery Z98.890 6. Hyperlipidemia, unspecified hyperlipidemia type E78.5 Plan 80-year-old gentleman. Findings consistent with several previous episodes of transient ischemic attack. Findings suggest critical stenosis bilateral internal carotids. I recommend initiation of enteric-coated 325 mg aspirin. We will contact Dr. Vern Valentin's office asking for initiation of a statin medication. We will have laboratory obtained today including his lipid panel as well as a CMP and CBC. The patient states that he had a cardiac work-up at [facility] approximately 3 years ago after a reaction to a blood pressure medicine. We will obtain records from that evaluation. The patient's current pulse oximetry is 99 but he fatigues and gets dyspneic on exertion. He demonstrated some shortness of breath just getting up on the exam table. We will obtain a PA and lateral chest x-ray. We will pursue a brain MRI and attempt to identify previous region of stroke. He does not unilaterally localize with his symptoms and he has suspected bilateral carotid stenosis. Trying to determine which carotid should be addressed first. To further delineate his carotid occlusive disease I recommend carotid duplex imaging we will pursue that. I will have him return the office for further surgical discussion. He is currently aware of the risk and benefits of intervention. He is well aware currently that he is at risk for stroke. I have advised him to cut down on some of his physical activity as we discussed the lifting with a 50 pound battery tissue shoulder level perhaps is a lot for an 80-year-old. Tentatively I anticipate surgical intervention. Carotid artery stenting appears to have increased risk in octogenarians. He has had an opportunity to ask and have questions answered. We will tentatively schedule surgery date. I will have him return to the office so we can help decipher which side might be more symptomatic. I appreciate the opportunity of assisting with surgical care Copy: Dr. Vern Rocha M.D., F.A.C.S. Addendum The patient now corrects himself suggesting that the lip numbness has been right upper lip. This may direct his to treating the right carotid initially. Orders Orders: Comprehensive Metabolic Profil Today Z01.818 Lipid Profile Today R20.0 CBC-Complete Blood Cnt No Diff Today R20.0, Z01.818 Brain W/WO Contrast Today R20.0 Chest PA and Lateral Today R06.00, Z86.16 Carotid Duplex Ultrasound Today I65.23, R20.0 Coding Level of Care Code 29560 Diagnoses Symptomatic stenosis of both carotid arteries I65.23 History of COVID-19 Z86.16 Strain of abdominal muscle, initial encounter S39.011A Encounter type: initial encounter Hypertension, unspecified type I10 Hypertension type: unspecified History of stent insertion of renal artery Z98.890 Hyperlipidemia, unspecified hyperlipidemia type E78.5 Hyperlipidemia type: unspecified MR#: [id number] Acct: [id number] Name: PRASANNA INGRAM Rep #: [id number] : 1940 M 80 From: Harshal Bear MD PCP: Dr. Vern Valentin MD Status: REG C LI Study:Brain W/WO Contrast Date of Exam: 11/04/20 Exam# [id number] Ordering Dr: Seema Rocha MD STUDY: MRI BRAIN WITH AND WITHOUT CONTRAST REASON FOR EXAM: Male, 80 years old. facial numbness TECHNIQUE: Standardized multiplanar fat and water weighted pulse sequences were obtained. IV DOTARM 17CC was administered for the contrast portion of the examination. COMPARISON: CT 10/31/2020 FINDINGS: There is mild cerebral atrophy with widening of the extra-axial spaces and ventricular dilatation. There are a limited number of small white matter hyperintensities, distributed throughout the deep white matter tracts of the cerebral hemispheres, consistent with mild chronic white matter ischemic changes. There is no evidence for recent intracranial ischemia or other cause of cytotoxic edema on diffusion weighted imaging (DWI). Normal T2* images of the brain without demonstrated susceptibility artifact. There is no demonstrated hemosiderin stain. Normal bilateral basal ganglia. Normal thalami. There is no extra-axial fluid accumulation. Normal flow voids within the major intracranial circulation suggesting patency by spin echo criteria. Normal venous enhancement. There is no enhancing intra-axial or extra-axial abnormality. Normal sella turcica, pituitary gland, infundibular stalk, optic chiasm and hypothalamus. Normal tectal plate and pineal gland. Normal midbrain, stone and medulla. Normal cerebellum. Normal basal cisterns. Normal bilateral temporal bones. Normal bilateral internal auditory canals. No demonstrated orbital abnormality, within the constraints of a routine brain study. Normal visualized paranasal sinuses. Normal calvarium and skull base. Normal visualized soft tissue structures. Normal visualized upper cervical spine. MRI/Brain W/WO Contrast IMPRESSION: Involutional changes of the brain, as described above. No acute infarct. Electronically Signed: Tucker Bear MD at 10:09 EDT Tel , Service support , MR#: [id number] Acct: [id number] Name: PRASANNA INGRAM Rep #: [id number] : 1940 M 80 From: Chico Wilkes MD PCP: Dr. Vern Valentin MD Status: LIZEHT COBURN Study:Gallbladder Date of Exam: 11/08/20 Exam# [id number] Ordering Dr: Seema Rocha MD STUDY: ABDOMINAL ULTRASOUND - RIGHT UPPER QUADRANT REASON FOR VISIT: Male, 80 years old ruq pain for one week TECHNIQUE: Ultrasound evaluation of the right upper quadrant was performed with real-time and static mcintosh-scale imaging. TECHNICAL QUALITY: Adequate. COMPARISON: None. FINDINGS: Liver: The liver measures 11.7 cm. There is increased echogenicity consistent with fatty infiltration. The bile ducts are within normal limits. There is hepatic color flow. The direction of portal flow is hepatopetal. 2 adjacent cysts are seen in the right lobe. The larger measures 1.3 cm x 0.9 cm x 0.9 cm. Gallbladder: Normal distended gallbladder. The gallbladder wall measures 2 mm. There is a negative sonographic Roche''s sign. There is no pericholecystic fluid. There are no gallstones. Common Bile Duct (C.B.D.): The common bile duct measures 2 mm. Pancreas: Normal size of the head, body and tail of the pancreas. There is increased echogenicity of the pancreas. There is no demonstrated pancreatic mass or cyst. Right Kidney: Normal size of the right kidney. The right kidney measures 9.2 cm x 5.3 cm x 6.1 cm. Normal renal cortex. The right cortex measures 1.5 cm. There is no demonstrated renal mass or cyst. There is no right hydronephrosis. US/Gallbladder IMPRESSION: Fatty infiltration of the liver. There are 2 small adjacent cysts in the right lobe of the liver. Electronically Signed: Jorje Wilkes MD at 13:53 EDT , Service support , [facility] Imaging Services [address] [place] [id number] Abdomen WITH IV Contrast MR#: [id number] Acct: [id number] Name: PRASANNA INGRAM Rep #: [id number] : 1940 M 80 From: Petty Lynn MD PCP: Dr. Vern Valentin MD Status: REG C IRISH Study:Abdomen WITH IV Contrast Date of Exam: 11/20/20 Exam# [id number] Ordering Dr: Seema Rocha MD STUDY: CT ABDOMEN WITH CONTRAST REASON FOR EXAM: Male, 80 years old. abdominal pain -- oral and IV contrast RADIATION DOSAGE (If Supplied By Facility): CTDIvol = ( 13.92 ) mGy, DLP = ( 652.51 ) mGycm TECHNIQUE: Transaxial images were obtained post I.V. administration of Oral and amp; IV Readi-CAT and amp; 100mL Isovue-300, and oral contrast. Sagittal and coronal images were reconstructed. Individualized dose optimization techniques were used for this CT. COMPARISON: None. FINDINGS: The visualized lung bases are unremarkable. The visualized portions of the heart are within normal limits. Multiple liver cysts the largest measures 1.2 cm. Normal gallbladder and extrahepatic biliary system. Normal spleen. Normal pancreas. Normal bilateral adrenal glands. Bilateral renal cysts are noted the largest measures 5 cm and left kidney. Normal visualized stomach. Normal small intestine. There is diverticulosis, with thickening of the colon wall, and pericolonic inflammation changes consistent with acute diverticulitis. There is diffuse atherosclerotic calcification of the abdominal aorta, with 3.1 cm infrarenal abdominal aortic aneurysm. Normal inferior vena cava. Normal retroperitoneum. Normal abdominal wall. Normal osseous structures. CT/Abdomen WITH IV Contrast IMPRESSION: Bilateral renal cysts are noted the largest measures 5 cm and left kidney. Infrarenal abdominal aortic aneurysm measuring 3.1 cm in greatest diameter. Multiple liver cysts the largest measures 1.2 cm. Colon diverticulosis. Electronically Signed: Luis Alfredo Elizalde MD at 10:51 EDT Tel , Service support , Assessment & Plan Problems 1. Symptomatic stenosis of both carotid arteries I65.23 Plan I am recommending to the patient a left carotid endarterectomy with bovine patch angioplasty and arterial line monitoring. I have discussed the technique, benefit, risk, alternatives. I anticipate a period of recovery and then anticipate an additional staged right carotid endarterectomy as well. He has had an opportunity to ask and have questions answered. We will schedule and expedite his care. Copy: Dr. Vern Valentin Secondary evaluation today regarding his patient right upper quadrant pain. He is focally tender along the right costal margin. He is tender in the epigastrium. Abdomen is otherwise soft and nontender. The patient however while wearing a mass seems dyspneic at rest. He states it is completely secondary to the mask. He admitted his original appointment however that he is not fully recovered from COVID-19. I recommend that he initiate omeprazole 40 mg daily. I would prefer not placing him through an endoscopic procedure at this point with severe bilateral carotid stenosis. I am recommending to him right rib x-rays. I am recommending a gallbladder ultrasound. I have additionally recommending that we obtain additional assistance from Dr. Vern Valentin. The patient is so uncomfortable he placed a heating pad on his abdomen and is called a thermal injury to his skin. He has a support belt in place. He is now taking very shallow breaths. He is now a high risk operative candidate secondary to this pain of unknown etiology. I will have to delay surgical intervention on his carotids until this can be deciphered. He has had a remote history of shingles when he said he was in his 20s. I do not detect any current skin rash. We performed more thorough evaluation of his right upper quadrant pain. We obtained rib x-rays which were unremarkable. We obtained a right upper quadrant ultrasound which as noted above was not remarkable for gallbladder disease. Because he was even in more severe pain we got a CT scan of the abdomen. That demonstrates a 3.1 cm abdominal aortic aneurysm but no findings to correlate with his right upper quadrant pain. He had lifted a very heavy battery above shoulder height prior to the onset of the pain. He was utilizing a support belt to assist. It seems evident now that he must have had some kind of musculoskeletal strain. He states that currently he is completely pain-free in the right upper quadrant. He denies any current focal neurologic change. He states he has not had any further episodes of lip numbness. He has had no speech deficit. He denies any motor or sensory loss. For age 80 he is extraordinarily active. He is very much interested in knowing when he can return to full physical activity. He has severe bilateral carotid artery stenosis. I am anticipating a staged bilateral carotid endarterectomy. At this point however we will initiate treatment on the left side. The patient may need to have some of his vigorous activity curtailed for a period of time. He has had an opportunity to ask and have questions answered. We will proceed with placement of an arterial line and then subsequent left carotid endarterectomy. He is aware that a patch angioplasty will be pursued. Oscar Rocha M.D., F.A.C.S. Procedure Criteria Procedure Type: Elective COVID Risk Discussion: The surgeon/proceduralist and patient have discussed in detail the risk of exposure to and/or potential harm posed by the COVID-19 virus with having a surgery/procedure at this time versus the risk of delaying the surgery/procedure. It is not possible to know either the risk of delaying the surgery or procedure or chance of getting an infection with perfect accuracy, but a joint decision was made between the patient and the surgeon/proceduralist to proceed at this time with the scheduled surgery/procedure as indicated on the consent form.
[2020-12-04] MEDS: Lactated Ringers 1,000 ML 100 ML IV (06:14)
--- NOTE | 2020-12-04 06:17 | DCINST_ITS ---
Discharge Diet: Light diet - advance as tolerated - if you have questions about your diet instructions, please talk to you doctor. Discharge Activity: May Not Drive - for 1 week or while taking narcotic pain medicine. May shower in (days): 3 - December shower on Wednesday Lifting Restrictions: 10 pounds Call your doctor if your incision/area has: Continuous Slow Oozing, Sudden Increased Bleeding, Increased Pain/ Swelling, Increased Redness, Foul Smelling Discharge Call your doctor if you observe: Fever of 101 or Higher Suture Line Care: Avoid Pulling/Pushing, Avoid Pinching/Bending Additional Dressing/Incision Instructions:: Change or remove dressing in 4 days. Leave steri-strips in place for 1 week. Additional Instructions: Decrease your aspirin therapy to 81 mg orally daily. Allergies/Adverse Reactions: Allergies Penicillins Allergy (Verified 12/04/20 05:37) Other Medications to take at Discharge Amlodipine [Norvasc] 10 mg PO DAILY 01/27/16 carvedilol 25 mg tablet 1 tablet PO BID 11/01/20 atorvastatin 80 mg tablet 80 mg PO DAILY tablet 11/06/20 Orders to be completed after discharge: 12 Lead EKG [[facility]] Location: None Selected Primary Care Physician: Vern Valentin MD [Primary Care Provider] - Test Results: Test results from this visit will be discussed in further detail at your follow- up appointment, if applicable. Please Follow Up With: Oscar Rocha MD - [phone] When: Call to make an appointment to be seen in about 10 days.
--- NOTE | 2020-12-04 06:48 | OP.PCM_ITS ---
Problem List (1) Symptomatic stenosis of both carotid arteries Status: Acute (2) Stenosis of left internal carotid artery Status: Acute Report of Operation Date of Procedure: 12/04/20 Pre-Operative Diagnosis: Symptomatic critical stenosis left internal carotid artery Post-Operative Diagnosis: Same Surgery/Procedure Performed:: Right radial arterial line placement. Left c arotid endarterectomy with Vascu guard bovine patch angioplasty. Lot number: [id number]. PN #[id number]. Expiry date 07/16/2025 Description of Surgical Findings:: Timeout and informed consent was obtained. Orion test performed of the right wrist demonstrating adequate ulnar flow. The right wrist was extended prepped with Betadine. Under ultrasound guidance 1% lidocaine was used as a local anesthetic. 1 cc was used. Under ultrasound guidance a 20-gauge Arrow Angiocath was inserted into the right radial artery advance with Seldinger wire technique. It was secured to the skin with 3-0 silk. It was connected to pressure tubing. OpSite dressing and Sunshine wrap was applied. Good waveform was obtained hand was viable at the completion no apparent complication. The patient was subsequently taken to the operating for definitive surgical treatment. Timeout informed consent obtained. The patient was taken the operating placed supine on the table. He underwent general endotracheal intubation anesthesia. Clindamycin 900 mg were given intravenously preoperatively. The left neck was sterilely prepped and draped. An oblique incision was made along the anterior border of the sternocleidomastoid. Sharp dissection was performed down through the subcutaneous tissue. The platysmas was incised. Dissection was formed electrocautery. Were needed vessels were secured with 3-0 Vicryl ligatures. Sharp and blunt dissection was used to identify the common carotid carotid bulb and internal and external carotid arteries. A Cruz tie of Dacron tape was placed at the common carotid. Dacron tape and removed tourniquet at the internal carotid. Vessel loop was placed around the external carotid. A Cruz tie of 3-0 Vicryl was placed at the superior thyroid. The patient received 9000 units of heparin weightbase. Based upon ACT measurements he received another 500 units of heparin during the procedure. After adequate circulating time peripheral vascular clamps were placed on the internal carotid common carotid and external carotid. A 11 blade was used to make an arteriotomy which was extended with Cruz scissors. A #10 USCI style shunt was placed cephalad and proximally. A endarterectomy was performed at the external elastic lamina. The plaque was sharply transected proximally. It was feathered at the internal carotid artery. The intima somewhat thick so it was secured with a tacking suture of 7-0 Prolene. An inversion endarterectomy was performed of the external carotid. Further debris was carefully removed. A bovine patch was used as a patch angioplasty was shaped to form and sutured in place with a running 6-0 Prolene. Prior to completion the shunt was removed the vessel was irrigated the patch angioplasty was completed initial flow was instituted from the external carotid common carotid and internal carotid. The patient received in aliquots of total 30 mg of protamine. Hemostasis was intact. There appeared to be some slight kinking of the internal carotid artery so I used a 2-0 Prolene suture to help rearrange the positioning of the carotid bulb to undo the slight kink. There was good positional lie. The wound was closed in layers approximated with his with a running 3-0 Vicryl and the skin is a running subicular 5-0 Vicryl. The periincisional area anesthetized with 20 cc of 0.5% Marcaine. Steri-Strips Telfa tape dressings applied. Sponge and instrument and needle counts were reported the surgeon to be correct. Blood loss was 200 cc. He tolerated the procedure well. He was taken to the recovery area in satisfactory vision without apparent complication. Specimen plaque. Drains none. Blood loss 200 cc. Oscar Rocha M.D., F.A.C.S. Type of Anesthesia:: General Anesthesiologist: Swapnil Perla
--- NOTE | 2020-12-04 07:30 | PLAQ_PTH ---
PATIENT: PRASANNA INGRAM LOC: [facility] U#:[id number] AGE/SX: 80/M ROOM: AL319 RE12/04/[address]: Dr. Oscar Rocha MD : 1940 BED: 1 DIS: 12/05/2020 SPEC #: [id number] RECD: 12/04/20 10:08 STATUS: JOVANNA ALBERTS #: [id number] LISSY: 12/04/20 07:[address]: Oscar Rocha DEPT: SURGICAL PATHOLOGY RECD BY: Hiral Zhang ENTERED: 12/04/20 11:06 SP TYPE: PLAQUE OTHR DR: Dr. Vern Valentin MD Tissues: PLAQUE Procedures: Decalcification bone/plaque Surgery Specimen Level III HEADER OPERATION: Carotid endarterectomy with patch angioplasty and arterial PRE-OP DIAGNOSIS: Stenosis of carotid arteries TISSUE SUBMITTED: Carotid plaque MICROSCOPIC DIAGNOSIS Carotid plaque, endarterectomy: Calcified atheromatous plaque consistent with severe stenosis. AM:anay 12/05/2020 GROSS DESCRIPTION Received in fixative is one container labeled with the patient's name and designated carotid plaque. The specimen consists of two irregular fragments of gritty yellow soft tissue that in aggregate measure 2.5 x 2 x 0.7 cm. The fragments are sectioned and totally submitted in one cassette after decalcification. / AM:anay 12/04/20 TC:2 CPT: 75600, 95186
[2020-12-04] MEDS: Heparin Injection (Vial) 5,000 UNIT/ML VIAL 5000 UNIT (07:50)
[2020-12-04] MEDS: Bupivacaine Mpf 0.5% 30 ML VIAL (09:30)
[2020-12-04 09:58] LABS: ACT Activated Clotting Time 131 sec (74-137)
[2020-12-04 09:59] LABS: ACT Activated Clotting Time 230 sec (74-137)
[2020-12-04] MEDS: Lactated Ringers 1,000 ML 30 ML IV (15:48)
[2020-12-04] MEDS: BENZOCAINE/MENTHOL 1 LOZENGE MUCOUS MEM (17:54)
[2020-12-04] MEDS: Atorvastatin Calcium 80 MG Tablet PO (21:19)
[2020-12-04] MEDS: Carvedilol 25 MG Tablet PO (21:19)
[2020-12-05 03:14] VITALS: BP 113/47; PULSE 69; RESP 16; TEMP 36.6; O2SAT 98
[2020-12-05 05:23] VITALS: BP 130/52; PULSE 72; RESP 18; TEMP 36.5; O2SAT 99
--- NOTE | 2020-12-05 06:08 | PCM.CAROT ---
General Carotid Note - Subjective Post-Op Day #: 1 - Objective Vital Signs Temp Pulse Resp BP Pulse Ox 97.7 F L 72 18 130/52 H 99 12/05/20 05:23 12/05/20 05:23 12/05/20 05:23 12/05/20 05:23 12/05/20 05:23 Laboratory Tests Past 24 Hrs 12/04/20 12/04/20 06:45 08:48 Activated Clotting Time 131 230 H Neck: Supple, - - Supple, nontender Neurological: Cranial nerves II-XII grossly intact Cardiovascular: Regular rate, Regular Rhythm - Assessment/Plan Patient has no complaints. He is comfortable without significant discomfort. Motor or sensory appears intact. Plan discharge. Office follow-up in 10 days. We will decrease his aspirin therapy to 81 mg daily. He is aware of this. I anticipate staged right carotid enterectomy in 3 months. Oscar Rocha M.D., F.A.C.S.
[2020-12-05 09:00] VITALS: BP 146/57; PULSE 66; RESP 14; TEMP 36.6; O2SAT 100
--- NOTE | 2020-12-05 09:00 | CASEMGMT ---
RN CM in to complete assessment. Pt has dc'd and left the building.
== END 2020-12-05 08:58 | disposition home or self-care (01) | DRG 39 ==
LOC: ACINP 05:18 → MS3 12:11
PROVIDERS: Anesthesiology; Admitting Provider Surgery; PCP Family Medicine; Referring Provider Surgery; Visit Provider Surgery
PROC: (CPT 35301; principal; 2020-12-04 07:10)
DX: I65.23 Occlusion and stenosis of bilateral carotid arteries (principal); R06.00 Dyspnea, unspecified; S39.011A Strain of muscle, fascia and tendon of abdomen, initial encounter; I10 Essential (primary) hypertension; E78.5 Hyperlipidemia, unspecified; Z86.73 Personal history of transient ischemic attack (TIA), and cerebral infarction without residual deficits; Z86.16 Personal history of COVID-19; Z98.890 Other specified postprocedural states; Z87.891 Personal history of nicotine dependence
CPT/HCPCS: 36415; 80048; 80076; 85027; 85347; 85610; 85730; 88304; 88311; 93005; 99251; J7040; J7120; G0463; J2405; J3490

== ENCOUNTER → 2020-12-31 09:46 | Outpatient (CLI) | payer MEDICARE, OTHER, SELFPAY ==
[2020-12-04 13:21] VITALS: BMI 28.9
--- NOTE | 2020-12-31 09:49 | CDU_ITS ---
Reason For Study: carotid stenosis Rt. Velocities/BP Lt. Velocities/BP Prox CCA 76.0/9.5 cm/sec. Prox CCA 94.9/21.2 cm/sec. Mid CCA 82.6/13.4 cm/sec. Mid CCA 101.1/23.7 cm/sec. Dist CCA 52.6/10.8 cm/sec. Dist CCA 77.7/16.3 cm/sec. Prox ICA 288.6/55.9 cm/sec. Prox ICA 90.0/11.4 cm/sec. Mid ICA 207.8/52.7 cm/sec. Mid ICA 94.9/26.2 cm/sec. Dist ICA 97.4/35.3 cm/sec. Dist ICA 81.4/28.6 cm/sec. Rt. ICA/CCA = 3.5. Lt. ICA/CCA = .9. Prox ECA 259.5/20.4 cm/sec. Prox ECA 134.2/13.9 cm/sec. Rt. Vert. 43.9 cm/sec. Lt. Vert. 18.2/6.9 cm/sec. Right Extracranial There is homogeneous, smooth atherosclerotic plaque noted in the right common carotid artery. There is heterogeneous, irregular atherosclerotic plaque noted in the right internal carotid artery. There is heterogeneous, irregular atherosclerotic plaque noted in the right external carotid artery. Antegrade flow is noted in the right vertebral artery. Left Extracranial There is heterogeneous, irregular atherosclerotic plaque noted in the left common carotid artery. There is intimal thickening but no significant atherosclerotic plaque noted in the left internal carotid artery. There is intimal thickening but no significant atherosclerotic plaque noted in the left external carotid artery. Antegrade flow is noted in the left vertebral artery. Procedure Carotid Duplex 28982. This is a Carotid Duplex examination using B-mode, color flow and specral Doppler. The exam was diagnostic. Exam performed in department. VL/Carotid Duplex Ultrasound Interpretation Summary Irregular calcific plaque at the proximal right internal carotid artery with gr eater than 70% stenosis. Greater than 50% stenosis right external carotid artery Widely patent postoperative changes of the left carotid bulb and proximal inter nal carotid artery with less than 50% stenosis of the left internal carotid artery Less than 50% stenosis left external carotid artery Patent antegrade vertebral arteries bilaterally Marked improvement of the left carotid bulb and proximal internal carotid arter y from the previous examination of November 04, 2020. No change on the right Ordering Physician: Oscar Rocha Performed By: Ramana Francois RVMaico
== END ==
PROVIDERS: PCP Family Medicine; Referring Provider Surgery; Visit Provider Surgery
DX: I65.23 Occlusion and stenosis of bilateral carotid arteries (principal)
CPT/HCPCS: 93880

== ENCOUNTER 2021-04-11 07:37 | Day surgery (SDC) | payer MEDICARE, OTHER, SELFPAY ==
[2021-03-25 13:42] VITALS: BMI 28.9
[2021-04-11] VITALS (7 sets, daily range): BP systolic 108–155; BP diastolic 51–75; PULSE 48–66; RESP 16; TEMP 36.1–36.2; O2SAT 92–100; BMI 28.2
[2021-04-11] MEDS: Lactated Ringers 1,000 ML 100 ML IV (08:12)
--- NOTE | 2021-04-11 08:15 | HP.PCM_ITS ---
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 Oscar Rocha MD) AAA (abdominal aortic aneurysm) Abdominal muscle strain History of COVID-19 History of renal artery stenosis History of stent insertion of renal artery HTN (hypertension) Hyperlipidemia Osteoarthritis Sleep apnea Spinal stenosis Symptomatic stenosis of both carotid arteries TIA (transient ischemic attack) Surgical History History of carotid endarterectomy History of stent insertion of renal artery Family History Father Heart disease Myocardial infarction Cancer liver Mother Diabetes Brother Diabetes Social History Smoking Status: Former smoker HPI HPI HPI: PARSANNA INGRAM, is a 80 M who presents to the office today for surgical consultation regarding remaining right carotid stenosis. On December 04, 2020 I did a left carotid enterectomy with Vascu-Guard bovine patch angioplasty. A right radial arterial line was placed at that time. Thickened intima was encountered at that time and tortuosity of the internal carotid. I was able to place a #10 USCI style shunt. The patient's symptoms at that time was episode of right upper lip numbness. His brain MRI did not demonstrate acute stroke but involutional changes. The patient was found to have greater than 70% stenosis bilateral internal carotids. On the left his operative side his peak systolic velocity is 367 with an end-diastolic velocity of 124 cm/s. On the right side peak systolic velocity was 290 with an end-diastolic velocity of 51 cm/s. A CTA of the neck that was obtained at the [facility] on October 31, 2020 demonstrated high-grade stenosis of bilateral internal carotid arteries with extensive calcific plaque. There is felt to be severe at sclerotic plaque at the origin of the right internal carotid with near complete occlusion. This was the similar finding to the left. He also had an echocardiogram demonstrating no acute ischemia. The patient states that prior to his left carotid enterectomy had one episode when his vision went all blurry. He also had several episodes of upper lip numbness. Fortunately he has had none of the symptoms since his procedure. It is of this note that when I first saw him for his carotids he was having terrible abdominal pain. This had been after lifting a battery put it. We had put him through testing. The only testing was a CT scan. On verbal report by there was thickening of the bowel. When we called him he suggested an ileocecal valve problem. The reported talks about sigmoid thickening. ROS General General: No weight change, appetite, fatigue, colon cancer, breast cancer or weakness HEENT HEENT: No difficulty swallowing, eye injury, eye surgery, swollen glands or hoarseness Endo Endocrine: No thyroid disease, diabetes mellitus, thyroid cancer, Hair loss, heat intolerance or cold intolerance Musc Musculoskeletal: Yes arthritis; No back problems, rheumatoid arthritis, gout or joint pain Cardio Cardiovascular: Yes high blood pressure; No murmur, pacemaker, heart disease, atrial fibrillation, heart attack, heart stent, palpitations, shortness of breat with exertion or chest pain Psych Psychiatric: No depression, anxiety or hearing voices Resp Respiratory: No shortness of breath, Yes sleep apnea, No cough, No COPD, No asthma, No emphysema and No wheezing Gastro Gastrointestinal: No abdominal pain, No nausea or vomiting, No diarrhea, No constipation, No blood in stool, No acid reflux, No hemorrhoids, No ulcers, No gallbladder problem and No black,tarry stools Stuart Hematologic: No blood thinners, No blood disorders, No bleeding, No anemia and No blood clots Neuro Neurologic: No weakness Exam Const General: cooperative, healthy appearing, comfortable and no acute distress Nutritional Appearance: average body habitus Orientation: alert and awake HENMT Head: normal to inspection Neck Other: Nicely healing left carotid incision, nontender, Resp Effort & Inspection: normal respiratory effort Auscultation: clear to auscultation bilaterally Cardio Rate: regular rate Rhythm: regular rhythm GI Palpation: soft and no hepatosplenomegaly Auscultation: normal bowel sounds Musc Cervical Spine: normal cervical lordosis Neuro General: patient alert and patient awake Extrem General: no calf tenderness Psych Appearance: grossly normal COVID (Procedure Consent) Procedure Criteria Procedure Criteria: Yes Elective The surgeon/proceduralist and patient have discussed in detail the risk of exposure to and/or potential harm posed by the COVID-19 virus with having a surgery/procedure at this time versus the risk of delaying the surgery/procedure. It is not possible to know either the risk of delaying the surgery or procedure or chance of getting an infection with perfect accuracy, but a joint decision was made between the patient and the surgeon/proceduralist to proceed at this time with the scheduled surgery/procedure as indicated on the consent form. Assessment and Plan Assessment and Plan (1) AAA (abdominal aortic aneurysm): Status: Acute Qualifiers: Presence of rupture: without rupture Qualified Code(s): I71.4 - Abdominal aortic aneurysm, without rupture (2) Symptomatic stenosis of both carotid arteries: Status: Acute (3) Abnormal abdominal CT scan: Status: Acute Plan - Dr. Oscar Rocha MD: 80-year-old gentleman. Fortunately he has done well status post left carotid enterectomy. At the time of his imaging he was found to have high-grade stenosis of both carotids. He also had abdominal pain at that time. He has a small asymptomatic 3 cm abdominal aortic aneurysm. He had thickening of the colon wall which was indeterminate. He was not able at that point to have the colon evaluated secondary to his carotid disease. I propose for him a colonoscopy with possible biopsy or polypectomy as indicated. We would perform this with monitored anesthesia care. He is aware of the technique, benefit, risk of alternatives. Subsequently I would recommend a right carotid endarterectomy with bovine patch angioplasty. He is very familiar and aware of the technique, benefit, risk of alternatives. Arterial line monitoring would be utilized. He has had an opportunity to ask and have questions answered. He is willing to proceed with diagnostic colonoscopy and therapeutic right carotid enterectomy as noted. Copy: Dr. Vern Rocha M.D., F.A.C.S. I have re-examined the patient. There are no clinical changes since date of exam. Oscar Rocha M.D., F.A.C.S.
[2021-04-11] MEDS: 0.9% Saline Lock 10 ML Syringe IV (08:40)
--- NOTE | 2021-04-11 08:45 | COLBX_PTH ---
PATIENT: PRASANNA INGRAM LOC: EN U#:[id number] AGE/SX: 80/M ROOM: RE04/11/[address]: Dr. Oscar Rocha MD : 1940 BED: DIS: 04/11/2021 SPEC #: [id number] RECD: 04/11/21 10:33 STATUS: JOVANNA ALBERTS #: [id number] LISSY: 04/11/21 08:[address]: Oscar Rocha DEPT: SURGICAL PATHOLOGY RECD BY: Hiral Zhang ENTERED: 04/11/21 12:39 SP TYPE: COLON BX OTHR DR: Dr. Vern Valentin MD Tissues: A - Cecum, NOS B - Ascending colon C - Descending colon Procedures: Surgery Specimen Level IV HEADER OPERATION: Colonoscopy (MAC) PRE-OP DIAGNOSIS: Screening TISSUE SUBMITTED: A - Cecal mass biopsy, B - Proximal ascending mass biopsy, C - Descending polyp MICROSCOPIC DIAGNOSIS A. Cecal mass, biopsy: Fragment of villous adenoma. B. Proximal ascending colon mass, biopsy: Fragments of villous adenoma. C. Descending colon polyp, biopsy: Fragments of tubulovillous adenoma. AM:anay 04/14/2021 MICROSCOPIC DESCRIPTION Slides are reviewed. GROSS DESCRIPTION A - Received in fixative is one container labeled with the patient's name and designated cecal mass biopsy. The specimen consists of one irregular fragment of light carvalho soft tissue that measures 0.3 x 0.3 x 0.1 cm. The specimen is totally submitted in one cassette. B - Received in fixative is one container labeled with the patient's name and designated proximal ascending mass biopsy. The specimen consists of multiple irregular fragments of light carvalho soft tissue that in aggregate measure 1 x 0.5 x 0.1 cm. The specimen is totally submitted in one cassette. C - Received in fixative is one container labeled with the patient's name and designated descending polyp. The specimen consists of multiple irregular fragments of light carvalho soft tissue that in aggregate measure 1 x 0.8 x 0.3 cm. The specimen is totally submitted in one cassette. / SJ:anay 04/11/21 TC:5 CPT: 92520 x3
--- NOTE | 2021-04-11 09:02 | OP.COLON_ITS ---
Patient Name: Jair Woodward Procedure Date: 04/11/2021 8:09 AM Date of : 1940 Age: 80 Procedure: Colonoscopy Indications: Generalized abdominal pain Providers: Oscar Rocha MD Medicines: See the Anesthesia note for documentation of the administered medications Patient Profile: Last Colonoscopy: date unknown. Complications: No immediate complications. Procedure: Pre-Anesthesia Assessment: - Prior to the procedure, a History and Physical was performed, and patient medications and allergies were reviewed. The patient's tolerance of previous anesthesia was also reviewed. The risks and benefits of the procedure and the sedation options and risks were discussed with the patient. All questions were answered, and informed consent was obtained. Prior Anticoagulants: The patient has taken no previous anticoagulant or antiplatelet agents. ASA Grade Assessment: II - A patient with mild systemic disease. After reviewing the risks and benefits, the patient was deemed in satisfactory condition to undergo the procedure. After I obtained informed consent, the scope was passed under direct vision. Throughout the procedure, the patient's blood pressure, pulse, and oxygen saturations were monitored continuously. The pediatric colonoscope was introduced through the anus and advanced to the cecum, identified by appendiceal orifice and ileocecal valve. The colonoscopy was performed without difficulty. The patient tolerated the procedure well. The quality of the bowel preparation was good. The ileocecal valve was photographed. Scope In: 8:24:59 AM Scope Withdrawal Time 0 hours 19 minutes 44 seconds Scope Out: 8:52:23 AM Total Procedure Duration Time 0 hours 27 minutes 24 seconds Findings: The digital rectal exam findings include non-thrombosed external hemorrhoids, non-thrombosed internal hemorrhoids and internal hemorrhoids that prolapse with straining, but spontaneously regress to the resting position (Grade II). A 18 mm polyp was found in the cecum. The polyp was sessile. Biopsies were taken with a cold forceps for histology. A frond-like/villous non-obstructing medium-sized mass was found in the mid ascending colon. The mass was non-circumferential. No bleeding was present. This was biopsied with a cold forceps for histology. Area was tattooed with an injection of 2 mL of Ivana ink. A 16 mm polyp was found in the proximal descending colon. The polyp was sessile. The polyp was removed with a saline injection-lift technique using a hot snare. Resection and retrieval were complete. To prevent bleeding post-intervention, one hemostatic clip was successfully placed. There was no bleeding at the end of the procedure. Multiple diverticula were found in the sigmoid colon and descending colon. Impression: - Non-thrombosed external hemorrhoids, non-thrombosed internal hemorrhoids and internal hemorrhoids that prolapse with straining, but spontaneously regress to the resting position (Grade II) found on digital rectal exam. - One 18 mm polyp in the cecum. Biopsied. - Rule out malignancy, tumor in the mid ascending colon. Biopsied. Tattooed. - One 16 mm polyp in the proximal descending colon, removed using injection-lift and a hot snare. Resected and retrieved. Clip was placed. - Diverticulosis in the sigmoid colon and in the descending colon. Recommendation: - Discharge patient to home. - Resume previous diet. - Continue present medications. - Return to my office in 1 week. - Repeat colonoscopy in 1 year for surveillance. Procedure Code(s): --- Professional --- 44810, Colonoscopy, flexible; with removal of tumor(s), polyp(s), or other lesion(s) by snare technique 71544, 59, Colonoscopy, flexible; with biopsy, single or multiple 40114, Colonoscopy, flexible; with directed submucosal injection(s), any substance Diagnosis Code(s): --- Professional --- K64.1, Second degree hemorrhoids K64.4, Residual hemorrhoidal skin tags D12.0, Benign neoplasm of cecum D12.4, Benign neoplasm of descending colon D49.0, Neoplasm of unspecified behavior of digestive system R10.84, Generalized abdominal pain K57.30, Diverticulosis of large intestine without perforation or abscess without bleeding CPT copyright 2017 [employer]. All rights reserved. The codes documented in this report are preliminary and upon medical billing coder review may be revised to meet current compliance requirements. Oscar Rocha MD 04/11/2021 9:01:57 AM This report has been signed electronically. Number of Addenda: 0 Note Initiated On: 04/11/2021 8:09 AM
--- NOTE | 2021-04-11 09:02 | OP.CCLET_ITS ---
04/11/2021 Vern Valentin Re : Colonoscopy procedure for Jair Summersr Homero This procedure was performed on Sunday, April 11, 2021. My impressions and recommendations are as follows: Impressions : - Non-thrombosed external hemorrhoids, non-thrombosed internal hemorrhoids and internal hemorrhoids that prolapse with straining, but spontaneously regress to the resting position (Grade II) found on digital rectal exam. - One 18 mm polyp in the cecum. Biopsied. - Rule out malignancy, tumor in the mid ascending colon. Biopsied. Tattooed. - One 16 mm polyp in the proximal descending colon, removed using injection-lift and a hot snare. Resected and retrieved. Clip was placed. - Diverticulosis in the sigmoid colon and in the descending colon. Recommendations : - Discharge patient to home. - Resume previous diet. - Continue present medications. - Return to my office in 1 week. - Repeat colonoscopy in 1 year for surveillance. My findings are described in the full procedure note, which is enclosed. If I can be of further assistance, please feel free to contact me at Doctor phone number(s): Work: . Sincerely, Oscar Rocha MD 04/11/2021 9:01:57 AM This report has been signed electronically.
--- NOTE | 2021-04-11 09:56 | SUR.PHASEII ---
PT. MEETS CRITERIA FOR DISCHARGE WAITING ON RIDE IN ROOM
== END 2021-04-11 10:03 ==
LOC: EN 07:38 → AC 07:39
PROVIDERS: PCP Family Medicine; Referring Provider Family Medicine; Visit Provider Surgery
PROC: 0DJD8ZZ Inspection of Lower Intestinal Tract, Via Natural or Artificial Opening Endoscopic (ICD-10-PCS; CPT 45378; principal; 2021-04-11 08:40)
DX: D12.0 Benign neoplasm of cecum (principal); K64.1 Second degree hemorrhoids; K64.4 Residual hemorrhoidal skin tags; D12.4 Benign neoplasm of descending colon; I65.21 Occlusion and stenosis of right carotid artery; I71.4 Abdominal aortic aneurysm, without rupture; K57.30 Diverticulosis of large intestine without perforation or abscess without bleeding; Z86.16 Personal history of COVID-19; I10 Essential (primary) hypertension; E78.5 Hyperlipidemia, unspecified; Z86.73 Personal history of transient ischemic attack (TIA), and cerebral infarction without residual deficits; Z87.891 Personal history of nicotine dependence
CPT/HCPCS: 45380; 45381; 45385; 88305; J7120; A4216; A4648

== ENCOUNTER 2021-04-21 17:13 | Emergency (ER) | payer MEDICARE, OTHER, SELFPAY ==
[2021-04-21 17:13] VITALS: BP 176/85; PULSE 80; RESP 16; TEMP 36.6; O2SAT 98; BMI 29.6
--- NOTE | 2021-04-21 18:53 | EX.ED.VIS.UR ---
HPI HPI - URI History of Present Illness Chief Complaint: Sore Throat Informant: patient Narrative Narrative: 80-year-old male states yesterday had a bit of a sore throat no other symptoms. This morning he was scratchy. He is having a carotid endarterectomy tomorrow by Dr. Rocha. He states that he called spoke with the nurses line and they recommended that he come to the emergency room and get a Covid test. He states he currently has 0 symptoms. He believes that the throat symptoms are most likely due to the gas as he caught his lawn the other day. ROS ROS ED Constitutional Constitutional ED: Denies chills or weight loss Eyes Eyes: Denies change in vision or diplopia ENT ENT ED: Reports sore throat; Denies ear pain or rhinorrhea Cardiovascular Cardiovascular: Denies chest pain, orthopnea, palpitations or racing heartbeat Respiratory/Chest Respiratory/Chest: Denies cough, dyspnea or orthopnea Gastrointestinal Gastrointestinal: Denies abdominal pain, diarrhea, nausea or vomiting Genitourinary Genitourinary ED: Denies dysuria, hematuria or urinary frequency Musculoskeletal Musculoskeletal: Denies arthralgias or myalgias Integumentary Denies abscess or rash Neurologic Neurologic: Denies headache(s) or weakness Psychiatric Psychiatric: Denies anxiety, depression, suicidal ideation or suicidal thoughts Endocrine Endocrinology: Denies polydipsia, polyphagia or polyuria Allergic/Immunologic Allergic/Immunologic ED: Denies mouth swelling, tongue swelling or urticaria PFSH [facility] Medical History AAA (abdominal aortic aneurysm) Abdominal muscle strain Alcohol use Arthritis Back pain Colon tumor Easy bruising Former smoker High cholesterol History of COVID-19 History of diverticulitis History of echocardiogram History of renal artery stenosis History of stent insertion of renal artery History of stress test HTN (hypertension) Hyperlipidemia Leg cramps Osteoarthritis Shortness of breath on exertion Sleep apnea Spinal stenosis Symptomatic stenosis of both carotid arteries TIA (transient ischemic attack) Wears dentures Wears glasses Home Medications amlodipine 10 mg PO DAILY 01/27/16 [History Last Taken 04/11/21] carvedilol 25 mg tablet 1 tab PO BID 11/01/20 [History Last Taken 04/11/21] atorvastatin 80 mg tablet 80 mg PO DAILY tablet 11/06/20 [History Last Taken 12/03/20] ascorbic acid (vitamin C) [Vitamin C] 1,000 mg PO DAILY 04/08/21 [History Last Taken Unknown] cholecalciferol (vitamin D3) [Vitamin D3] 125 mcg PO DAILY 04/08/21 [History Last Taken Unknown] magnesium 400 mg PO DAILY 04/08/21 [History Last Taken Unknown] vitamin A 1,500 mcg PO DAILY 04/08/21 [History Last Taken Unknown] vitamin B complex 1 tab PO DAILY 04/08/21 [History Last Taken Unknown] vitamin E 400 unit PO DAILY 04/08/21 [History Last Taken Unknown] aspirin 81 mg PO DAILY@0800 04/15/21 [History Last Taken Unknown] Allergy/AdvReac Type Severity Reaction Status Date / Time Penicillins Allergy Other Verified 04/21/21 17:13 Family History Father Heart disease Myocardial infarction Cancer liver Mother Diabetes Brother Diabetes Surgical History H/O carotid endarterectomy History of carotid endarterectomy History of colonoscopy History of stent insertion of renal artery Social History (Updated 04/21/21 @ 18:[address] Amol Gould DO) Smoking Status: Former smoker substance use type: does not use EXAM Physical Exam Const Vital Signs: 04/21/21 17:13 Temperature 97.8 F Temperature Source Temporal Pulse Rate 80 Respiratory Rate 16 Blood Pressure 176/85 H Blood Pressure Mean 115 Pulse Ox 98 Oxygen Delivery Method Room Air Positive well nourished and well developed General Appearance ED: well developed HEENT Reports normocephalic, head/scalp atraumatic and moist mucous membranes Eyes PERRL and EOMs intact bilaterally Neck no lymphadenopathy, supple and no JVD Resp normal respiratory effort and clear to auscultation bilaterally Cardio regular rate, regular rhythm and no murmurs GI normal to inspection, nondistended, normoactive bowel sounds and non-tender Palpation: soft Back/Spine no CVA tenderness and normal ROM Extremity normal to inspection General Extremety ED: Negative for edema General Extremity: Negative for edema Neuro oriented x3 and CN's II-XII intact bilaterally Sensorium / Orientation: alert Motor Exam: strength 5/5 throughout Psych mental status grossly normal Mood & Affect: Negative for depressed or tearful Skin no rashes or lesions noted and no wounds MDM MDM MDM Narrative Medical decision making narrative: Patient's Covid test is negative. Discharge Plan Triage Chief Complaint: Sore Throat ED Provider: Amol Gould Dx/Rx/DC Orders Clinical Impression: Acute sore throat Instructions: Self-Care for Sore Throats Prescriptions: No Action carvedilol 25 mg tablet 1 tab PO BID RF: 0 atorvastatin 80 mg tablet 80 mg PO DAILY RF: 0 amlodipine 10 MG tablet 10 mg PO DAILY RF: 0 aspirin 81 MG tablet,chewable 81 mg PO DAILY@0800 RF: 0 ascorbic acid (vitamin C) [Vitamin C] 500 mg Tablet 1,000 mg PO DAILY RF: 0 vitamin E 400 unit Tablet 400 unit PO DAILY RF: 0 vitamin B complex Tablet 1 tab PO DAILY RF: 0 vitamin A 10,000 unit Tablet 1,500 mcg PO DAILY RF: 0 magnesium 200 mg Tablet 400 mg PO DAILY RF: 0 cholecalciferol (vitamin D3) [Vitamin D3] 125 mcg (5,000 unit) Tablet 125 mcg PO DAILY RF: 0 Primary Care Provider: Vern Valentin Referrals: Vern Valentin MD [Primary Care Provider] - As Needed Disposition Disposition: Home, Self Care
== END 2021-04-21 19:01 | disposition home or self-care (01) ==
PROVIDERS: Emergency Provider Emergency Medicine; PCP Family Medicine
DX: J02.9 Acute pharyngitis, unspecified (principal); Z87.891 Personal history of nicotine dependence; E78.00 Pure hypercholesterolemia, unspecified; I10 Essential (primary) hypertension; E78.5 Hyperlipidemia, unspecified; Z86.16 Personal history of COVID-19
CPT/HCPCS: 87426; 99282

== ENCOUNTER 2021-04-22 05:20 | Inpatient (IN) | payer MEDICARE, OTHER, SELFPAY ==
[2021-03-25 13:42] VITALS: BMI 28.9
[2021-04-17 10:38] LABS: Hematocrit 41.6 % (40-54); Mean Corp Hgb Conc 33.7 g/dL (32-36); Mean Corpuscular Hgb 30.5 pg (27.0-32.0); Mean Corpuscular Volume 90.6 fL (80-94); Mean Platelet Vol. 10.4 fl (6.2-12.0); Platelet Count 184 K/mm3 (150-450); RBC Distribution Width CV 13.1 % (11.6-14.6); Red Blood Count 4.59 M/mm3 (4.6-6.2)
[2021-04-17 10:53] LABS: Prothrombin Time (Protime)PT. 12.5 SECONDS (11.7-14.9)
[2021-04-17 10:54] LABS: Partial Thromboplast Time 32.5 Seconds (24.1-36.2)
[2021-04-17 10:56] LABS: AST(SGOT) 16 U/L (15-37); Alanine Aminotransfer ALT/SGPT 24 U/L (16-61); Albumin, Serum 3.9 g/dL (3.2-5.0); Alkaline Phosphatase 74 U/L (45-117); Anion Gap 1 (5-15); BUN 17 mg/dL (7-18); BUN/Creat Ratio 20.8 RATIO (10-20); Bilirubin, Direct 0.24 mg/dL (0.00-0.30); Chloride 109 mmol/L (98-107); Creatinine, Serum 0.82 mg/dL (0.70-1.30); EST Glomerular Filtration Rate 96 mL/min (>60); Est Glom Filt Rate - Afr Amer 116 mL/min (>60); Globulin 3.3 g/dL (2.2-4.2); Glucose 114 mg/dL (74-106); Potassium 4.2 mmol/L (3.5-5.1); Protein, Total 7.2 g/dL (6.4-8.2); Sodium Level 141 mmol/L (136-145)
[2021-04-22] VITALS (25 sets, daily range): BP systolic 105–164; BP diastolic 43–78; PULSE 60–81; RESP 16–18; TEMP 36.2–36.7; O2SAT 95–99; BMI 28.6
--- NOTE | 2021-04-22 | PLAQ_PTH ---
PATIENT: PRASANNA INGRAM LOC: MS3 U#:[id number] AGE/SX: 80/M ROOM: [facility] RE04/22/[address]: Dr. Oscar Rocha MD : 1940 BED: 1 DIS: 04/23/2021 SPEC #: [id number] RECD: 04/22/21 11:30 STATUS: JOVANNA RELicha #: [id number] LISSY: 04/22/21 00:[address]: Oscar Rocha DEPT: SURGICAL PATHOLOGY RECD BY: Rajesh Espinal ENTERED: 04/22/21 11:30 SP TYPE: PLAQUE OTHR DR: Dr. Vern Valentin MD Tissues: PLAQUE Procedures: Decalcification bone/plaque Surgery Specimen Level III HEADER OPERATION: Carotid endarterectomy with patch angioplasty and arterial L PRE-OP DIAGNOSIS: Carotid stenosis, right TISSUE SUBMITTED: Right carotid plaque MICROSCOPIC DIAGNOSIS Right carotid plaque, endarterectomy: Calcified atheromatous plaque consistent with severe stenosis. AM:am 04/25/21 GROSS DESCRIPTION Received in fixative is one container labeled with the patient's name and designated right carotid plaque The specimen consists of an elongated calcified yellow carvalho tissue measuring 2.6 x 1.0 x 1.0cms. the specimen is sectioned and totally submitted in one cassette after decalcification. /AM:sherrie 04/22/21 TC:5 CPT:92898, 18829
[2021-04-22] MEDS: Lactated Ringers 1,000 ML 100 ML IV ×2 (05:40→11:32)
--- NOTE | 2021-04-22 05:57 | HP.PCM_ITS ---
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: No Accompanied by: self Is patient in pain?: No Allergies Penicillins Allergy (Verified 04/17/21 09:52) Other Medications amlodipine 10 mg PO DAILY 01/27/16 [History Confirmed 04/17/21] carvedilol 25 mg tablet 1 tab PO BID 11/01/20 [History Confirmed 04/17/21] atorvastatin 80 mg tablet 80 mg PO DAILY tablet 11/06/20 [History Confirmed 04/17/21] ascorbic acid (vitamin C) [Vitamin C] 1,000 mg PO DAILY 04/08/21 [History Confirmed 04/17/21] cholecalciferol (vitamin D3) [Vitamin D3] 125 mcg PO DAILY 04/08/21 [History Confirmed 04/17/21] magnesium 400 mg PO DAILY 04/08/21 [History Confirmed 04/17/21] vitamin A 1,500 mcg PO DAILY 04/08/21 [History Confirmed 04/17/21] vitamin B complex 1 tab PO DAILY 04/08/21 [History Confirmed 04/17/21] vitamin E 400 unit PO DAILY 04/08/21 [History Confirmed 04/17/21] aspirin 81 mg PO DAILY@0800 04/15/21 [History Confirmed 04/17/21] [facility] Medical History (Updated 04/17/21 @ 05:[address] Oscar Rocha MD) AAA (abdominal aortic aneurysm) Abdominal muscle strain Alcohol use Arthritis Back pain Colon tumor Easy bruising Former smoker High cholesterol History of COVID-19 History of diverticulitis History of echocardiogram History of renal artery stenosis History of stent insertion of renal artery History of stress test HTN (hypertension) Hyperlipidemia Leg cramps Osteoarthritis Shortness of breath on exertion Sleep apnea Spinal stenosis Symptomatic stenosis of both carotid arteries TIA (transient ischemic attack) Wears dentures Wears glasses Surgical History (Updated 04/15/21 @ 14:46 by Genet Abdullahi) History of carotid endarterectomy History of colonoscopy History of stent insertion of renal artery Family History Father Heart disease Myocardial infarction Cancer liver Mother Diabetes Brother Diabetes Social History Smoking Status: Former smoker HPI HPI HPI: PRASANNA INGRAM, is a 80 M who presents to the office today for surgical follow-up status post a left carotid enterectomy and a colonoscopy with plans for right carotid endarterectomy in the near future. As noted below on December 04, 2020 I performed a left carotid enterectomy with the patient preoperatively having symptoms of lip numbness and blurred vision. He performed well with the procedure. Imaging preoperatively demonstrated high-grade stenosis bilateral carotids. He is scheduled to undergo a right carotid endarterectomy with patch angioplasty in the near future. On April 11, 2021 because of generalized abdominal pain I performed a colonoscopy. This demonstrated hemorrhoids. An 18 mm polyp in the cecum. A frond-like villous nonobstructing medium-sized mass was found in the mid ascending colon. Noncircumferential. No bleeding noted. This was biopsied and tattooed. A 16 mm polyp in the proximal descending colon removed with injection and left with clip placement. Diverticulosis was identified of the sigmoid colon. Pathology of the cecal mass showed fragments of villous adenoma. There was a proximal ascending colon mass showing fragments of villous adenoma. In the descending colon polyp was fragments of tubulovillous adenoma. Fortunately no evidence of malignancy. The cecum and ascending colon findings however are felt to require future right colectomy. 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 Oscar Rocha MD) AAA (abdominal aortic aneurysm) Abdominal muscle strain History of COVID-19 History of renal artery stenosis History of stent insertion of renal artery HTN (hypertension) Hyperlipidemia Osteoarthritis Sleep apnea Spinal stenosis Symptomatic stenosis of both carotid arteries TIA (transient ischemic attack) Surgical History History of carotid endarterectomy History of stent insertion of renal artery Family History Father Heart disease Myocardial infarction Cancer liver Mother Diabetes Brother Diabetes Social History Smoking Status: Former smoker HPI HPI HPI: PRASANNA INGRAM, is a 80 M who presents to the office today for surgical consultation regarding remaining right carotid stenosis. On December 04, 2020 I did a left carotid enterectomy with Vascu-Guard bovine patch angioplasty. A right radial arterial line was placed at that time. Thickened intima was encountered at that time and tortuosity of the internal carotid. I was able to place a #10 USCI style shunt. The patient's symptoms at that time was episode of right upper lip numbness. His brain MRI did not demonstrate acute stroke but involutional changes. The patient was found to have greater than 70% stenosis bilateral internal carotids. On the left his operative side his peak systolic velocity is 367 with an end-diastolic velocity of 124 cm/s. On the right side peak systolic velocity was 290 with an end-diastolic velocity of 51 cm/s. A CTA of the neck that was obtained at the [facility] on October 31, 2020 demonstrated high-grade stenosis of bilateral internal carotid arteries with extensive calcific plaque. There is felt to be severe at sclerotic plaque at the origin of the right internal carotid with near complete occlusion. This was the similar finding to the left. He also had an echocardiogram demonstrating no acute ischemia. The patient states that prior to his left carotid enterectomy had one episode w hen his vision went all blurry. He also had several episodes of upper lip numbness. Fortunately he has had none of the symptoms since his procedure. It is of this note that when I first saw him for his carotids he was having terrible abdominal pain. This had been after lifting a battery put it. We had put him through testing. The only testing was a CT scan. On verbal report by there was thickening of the bowel. When we called him he suggested an ileocecal valve problem. The reported talks about sigmoid thickening. ROS General General: No weight change, appetite, fatigue, colon cancer, breast cancer or weakness HEENT HEENT: No difficulty swallowing, eye injury, eye surgery, swollen glands or hoarseness Endo Endocrine: No thyroid disease, diabetes mellitus, thyroid cancer, Hair loss, heat intolerance or cold intolerance Musc Musculoskeletal: Yes arthritis; No back problems, rheumatoid arthritis, gout or joint pain Cardio Cardiovascular: Yes high blood pressure; No murmur, pacemaker, heart disease, atrial fibrillation, heart attack, heart stent, palpitations, shortness of breat with exertion or chest pain Psych Psychiatric: No depression, anxiety or hearing voices Resp Respiratory: No shortness of breath, Yes sleep apnea, No cough, No COPD, No asthma, No emphysema and No wheezing Gastro Gastrointestinal: No abdominal pain, No nausea or vomiting, No diarrhea, No constipation, No blood in stool, No acid reflux, No hemorrhoids, No ulcers, No gallbladder problem and No black,tarry stools Stuart Hematologic: No blood thinners, No blood disorders, No bleeding, No anemia and No blood clots Neuro Neurologic: No weakness Exam Const General: cooperative, healthy appearing, comfortable and no acute distress Nutritional Appearance: average body habitus Orientation: alert and awake [facility] Head: normal to inspection Neck Other: Nicely healing left carotid incision, nontender, Resp Effort & Inspection: normal respiratory effort Auscultation: clear to auscultation bilaterally Cardio Rate: regular rate Rhythm: regular rhythm GI Palpation: soft and no hepatosplenomegaly Auscultation: normal bowel sounds Musc Cervical Spine: normal cervical lordosis Neuro General: patient alert and patient awake Extrem General: no calf tenderness Psych Appearance: grossly normal COVID (Procedure Consent) Procedure Criteria Procedure Criteria: Yes Elective The surgeon/proceduralist and patient have discussed in detail the risk of exposure to and/or potential harm posed by the COVID-19 virus with having a surgery/procedure at this time versus the risk of delaying the surgery/procedure. It is not possible to know either the risk of delaying the surgery or procedure or chance of getting an infection with perfect accuracy, but a joint decision was made between the patient and the surgeon/proceduralist to proceed at this time with the scheduled surgery/procedure as indicated on the consent form. Assessment and Plan Assessment and Plan (1) AAA (abdominal aortic aneurysm): Status: Acute Qualifiers: Presence of rupture: without rupture Qualified Code(s): I71.4 - Abdominal aortic aneurysm, without rupture (2) Symptomatic stenosis of both carotid arteries: Status: Acute (3) Abnormal abdominal CT scan: Status: Acute Plan - Dr. Oscar Rocha MD: 80-year-old gentleman. Fortunately he has done well status post left carotid enterectomy. At the time of his imaging he was found to have high-grade stenosis of both carotids. He also had abdominal pain at that time. He has a small asymptomatic 3 cm abdominal aortic aneurysm. He had thickening of the colon wall which was indeterminate. He was not able at that point to have the colon evaluated secondary to his carotid disease ROS General General: No weight change, appetite, fatigue, colon cancer, breast cancer or weakness HEENT HEENT: No difficulty swallowing, eye injury, eye surgery, swollen glands or hoarseness Endo Endocrine: No thyroid disease, diabetes mellitus, thyroid cancer, Hair loss, heat intolerance or cold intolerance Musc Musculoskeletal: Yes arthritis; No back problems, rheumatoid arthritis, gout or joint pain Cardio Cardiovascular: Yes high blood pressure; No murmur, pacemaker, heart disease, atrial fibrillation, heart attack, heart stent, palpitations, shortness of breat with exertion or chest pain Psych Psychiatric: No depression, anxiety or hearing voices Resp Respiratory: No shortness of breath, Yes sleep apnea, No cough, No COPD, No asthma, No emphysema and No wheezing Gastro Gastrointestinal: No abdominal pain, No nausea or vomiting, No diarrhea, Yes constipation, No blood in stool, No acid reflux, No hemorrhoids, No ulcers, No gallbladder problem and No black,tarry stools Stuart Hematologic: No blood thinners, No blood disorders, No bleeding, No anemia and No blood clots Neuro Neurologic: No weakness Assessment and Plan Assessment and Plan (1) Carotid stenosis, right: Status: Acute Plan - Dr. Oscar Rocha MD: I recommended the patient a right carotid endarterectomy with bovine patch angioplasty. Arterial line monitoring will be utilized. He is aware of the technique, benefit, risk of alternatives. We additionally discussed the ascending colon findings. I would be recommending a future laparoscopic right colectomy. Fortunately that is not urgent based upon her current pathology and we can allow recovery status post carotid endarterectomy. He has had an opportunity to ask and have questions answered. He is scheduled we will proceed as noted. The patient has had an opportunity to ask and have questions today. He is pleased with the results of his left carotid. He has not had no further visual blurring or lip numbness. He does have some mild residual numbness of the left neck incision site but he feels that is improving as well. I anticipate right carotid endarterectomy with bovine patch angioplasty and arterial line monitoring. I anticipate likely future laparoscopic right colectomy approximately 3 months in the future. Copy: Dr. Vern Rocha M.D., F.A.C.S. 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 He was evaluated in the [facility] emergency room. Covid testing was negative. Diagnosis was sore throat and self-care recommended by . The patient presents for planned right carotid enterectomy with bovine patch angioplasty and arterial line monitoring today. Oscar Rocha M.D., [email or web address]. Assessment & Plan Assessment/Plan (1) Carotid stenosis, right: PLAN: The patient states that he is stable his had no shortness of breath and his sore throat has resolved. He has no head congestion. As noted he was seen in the emergency room last night. Covid testing was negative. We will proceed with a right carotid enterectomy with bovine patch angioplasty. He has had an opportunity to ask and have questions answered. We will utilize arterial line monitoring. Oscar Rocha M.D., F.A.C.S.
--- NOTE | 2021-04-22 06:25 | OP.PCM_ITS ---
Problems Associated Problem List Diagnoses (1) Carotid stenosis, right: Report of Operation Date of Procedure: 04/22/21 Pre-Operative Diagnosis: Critical stenosis right extracranial internal carotid artery Post-Operative Diagnosis: Same Surgery/Procedure Performed:: Right radial arterial line placement Right carotid endarterectomy with bovine patch angioplasty Reference: [id number] Lot [id number] Expiry date 11/18/2025 [id number] Description of Surgical Findings:: Timeout and informed consent was obtained. At the bedside Orion test performed demonstrating adequate ulnar flow. The right wrist was gently extended. It was prepped with Betadine. Under ultrasound guidance 1% lidocaine was used as a local anesthetic. 1 cc was used. Local was instilled under ultrasound guidance and then a 20-gauge arrow Angiocath Was used to gain access to the artery in advance with Seldinger wire technique. Good waveform was obtained. It was secured to skin with 3-0 silk and then OpSite dressing and Sunshine wrap. No apparent complication. Hand was viable to completion. The patient was subsequently taken to the operating room. He was placed upon the table. Underwent general endotracheal intubation anesthesia. Clindamycin 900 mg were given intravenously. His right neck was sterilely prepped and draped. An oblique incision was made along the anterior border the st ernocleidomastoid. Sharp dissection was performed down through the subcutaneous tissues. Sharp and blunt dissection was used to identify the common carotid internal carotid and external carotid. A Cruz tie of Dacron tape was placed around the common carotid Dacron tape and Geoff tourniquet around the internal carotid and vascular around the external carotid. A Cruz tie of 3-0 Vicryl was placed around the superior thyroid artery. The patient received 10,000 units heparin intravenously. Peripheral vascular clamps were placed on the internal carotid common carotid and external carotid arteries. 11 blade was used to make an arteriotomy which was extended with Cruz scissors. A #10 USCI style shunt was used to place the shunt cephalad than proximally. It was secured with a Dacron tapes. An endarterectomy was performed layer of the external elastic lamina. The plaque was sharply transected proximally in the common carotid and then was nicely feathered at the internal carotid and an inversion endarterectomy was performed of the external carotid. Careful debris was carefully removed. A single 7 oh tacking sutures placed at the internal carotid. A 0.8 x 8 cm bovine patch was shaped to form and then a patch angioplasty created with a running 6-0 Prolene. Prior to completion the vessel was irrigated the shunt was removed backflow was allowed from the internal and external carotid and antegrade flow from the common carotid. The patch angioplasty was completed. Initial flow was instituted from the external carotid common carotid from the internal carotid. The patient received 30 mg of protamine as reversal. Very small piece of Surgicel was placed at the cephalad portion of the patch. Hemostasis was intact. The wound was closed by approximating the platysma with a running 3-0 Vicryl. Skin edges were approximated running septic of 4-0 Monocryl. The periincisional area was anesthetized with 20 cc of 0.5% Marcaine. Steri-Strips Telfa OpSite dressings applied. Sponge and instrument and needle counts were reported to the surgeon to be correct. Patient appeared awake grossly neurologically intact. He was taken to the recovery room in satisfactory condition without apparent complication. Specimens plaque. Drains none. Blood loss 150 cc. Oscar Rocha M.D., F.A.C.S. Surgeon: Oscar Rocha Type of Anesthesia: General Anesthesiologist: Christos Howard
--- NOTE | 2021-04-22 06:27 | PCM.DC ---
Discharge Instructions Diet Discharge Diet: Light diet - advance as tolerated Activity Discharge Activity: May Not Drive (For 5 to 7 days), May Not Shower (For 3 days) and May Take a Tub Bath Weight Bearing Status: Full weight bearing Dressing / Incision Call your doctor if your incision/area has: Continuous Slow Oozing, Sudden Increased Bleeding and Increased Pain/ Swelling Call your doctor if you observe: Fever of 101 or Higher Suture Line Care: Avoid Pulling/Pushing Change Dressing in: 1 day (You may apply a dry gauze cover dressing to your incision as needed to protect from clothing irritation. Change as needed) Remove Dressing in: 1 week (Leave your Steri-Strips in place for 1 week then you may remove) Follow Up Care Please Follow Up With: Oscar Rocha MD When: Approximately 10 days. Please call [phone] to arrange for an appointment Test Results: You may shower on Wednesday, April 25, 2021 Discharge Plan Admission Admit Date/Time: 04/22/21 05:20 Primary Reason for Your Visit: Critical stenosis right internal carotid artery Attending Provider: Oscar Rocha Primary Care Provider: Vern Valentin Discharge Orders/Prescriptions Prescriptions: Continued carvedilol 25 mg tablet 1 tab PO BID RF: 0 atorvastatin 80 mg tablet 80 mg PO DAILY RF: 0 amlodipine 10 MG tablet 10 mg PO DAILY RF: 0 aspirin 81 MG tablet,chewable 81 mg PO DAILY@0800 RF: 0 ascorbic acid (vitamin C) [Vitamin C] 500 mg Tablet 1,000 mg PO DAILY RF: 0 vitamin E 400 unit Tablet 400 unit PO DAILY RF: 0 vitamin B complex Tablet 1 tab PO DAILY RF: 0 vitamin A 10,000 unit Tablet 1,500 mcg PO DAILY RF: 0 magnesium 200 mg Tablet 400 mg PO DAILY RF: 0 cholecalciferol (vitamin D3) [Vitamin D3] 125 mcg (5,000 unit) Tablet 125 mcg PO DAILY RF: 0 Referrals / Follow Up: Vern Valentin MD [Primary Care Provider] - Disposition Disposition (needs filled in before D/C Order can be placed): Home, Self Care
[2021-04-22] MEDS: Heparin 10,000 UNITS/10 ML Vial 10000 UNITS (08:12)
[2021-04-22] MEDS: Bupivacaine Mpf 0.5% 30 ML VIAL (09:20)
[2021-04-22] MEDS: Heparin Injection (Vial) 5,000 UNIT/ML VIAL 5000 UNIT (09:21)
[2021-04-22] MEDS: Nitro/D5w 25MG/250ML Bottle 25 MG (09:30)
--- NOTE | 2021-04-22 10:21 | SUR.PHASEI ---
Addendum entered by Virginia Valenzuela 04/22/21 11:24: PACU: NITRO GTT D/C AT 1030. WILL MONITOR FOR EFFECT. Original Note: PATIENT C/O CONSTANT BURNING AND DISCOMFORT FROM LIAO CATH EVEN AFTER B & O SUPP GIVEN. EDUCATED PATIENT THAT HE MAY CONTINUE TO FEEL BURNING AND DISCOMFORT WELL FREQUENT URGE TO VOID AFTER LIAO REMOVED, VERBALIZES UNDERSTANDING. REMOVED LIAO CATH. PATIENT IMMEDIATELY C/O URGE TO VOID, ASKED THAT URINAL BE LEFT IN PLACE BETWEEN LEGS, EDUCATED ON RISK OF SKIN BREAKDOWN FROM CONSTANT URINAL PRESSURE. PATIENT VERBALIZES UNDERSTANDING, STILL WANTS URINAL IN PLACE.
[2021-04-22] MEDS: hydrALAZINE 10 MG Tablet 5 MG PO (12:51)
[2021-04-22] MEDS: HYDROcodone Bitartrate/Apap 5/325 Tablet PO (13:59)
[2021-04-22 14:26] LABS: ACT Activated Clotting Time 136 sec (74-137)
[2021-04-22 14:27] LABS: ACT Activated Clotting Time 252 sec (74-137)
--- NOTE | 2021-04-22 15:25 | CPS ---
Pt does not wear any PAP machine or oxygen for his ASHA at home.
[2021-04-22] MEDS: Magnesium Chloride 64 MG Delay Rel.Tablet 128 MG PO (15:35)
--- NOTE | 2021-04-22 16:04 | PCM.PN.SRG ---
Subjective Subjective Patient without complaint. Feels like he is doing well. Goncalves catheter has been removed and he is voiding. Objective Data Objective Data Vital Signs: Vital Signs Temp Pulse Resp BP Pulse Ox 97.6 F L 65 16 150/62 H 99 04/22/21 14:56 04/22/21 14:56 04/22/21 14:56 04/22/21 14:56 04/22/21 14:56 Oxygen Flow Rate (L/min) 2 Oxygen Delivery Method Nasal Cannula Weight: 188 lb 4.396 oz Body Mass Index (BMI) 28.6 Intake & Output: Intake and Output for Last 24 Hours 04/20/21 04/21/21 04/22/21 23:59 23:59 23:59 Intake Total 1212 / 1212 Output Total 565 / 565 Balance 647 / 647 Lab / Micro Data Result Diagrams: 04/17/21 10:23 04/17/21 10:23 Labs: Laboratory Results - last 24 hr 04/22/21 06:47: Activated Clotting Time 136 04/22/21 08:44: Activated Clotting Time 252 H Physical Exam Extremity Extremity Narrative: Neck is supple, nontender, neuro is intact Assessment & Plan Assessment/Plan (1) Carotid stenosis, right: PLAN: Excellent initial progress status post right carotid enterectomy. We will continue to observe and anticipate hopeful discharge tomorrow. Oscar Rocha M.D., F.A.C.S.
[2021-04-22] MEDS: Acetaminophen 325 MG Tablet PO (17:54)
[2021-04-22] MEDS: Carvedilol 25 MG Tablet PO (22:06)
[2021-04-22] MEDS: Atorvastatin Calcium 80 MG Tablet PO (22:06)
[2021-04-23 05:39] VITALS: BP 163/82; PULSE 65; RESP 16; TEMP 36.5; O2SAT 100
--- NOTE | 2021-04-23 08:01 | PCM.PN.SRG ---
Subjective Subjective Patient evaluated resting comfortably in bed. He denies pain, notes some discomfort. He denies numbness, tingling, lightheadedness/dizziness, vision changes, weakness. He is voiding well. Objective Data Objective Data Vital Signs: Vital Signs Temp Pulse Resp BP Pulse Ox 97.7 F L 65 16 163/82 H 100 04/23/21 05:39 04/23/21 05:39 04/23/21 05:39 04/23/21 05:39 04/23/21 05:39 Oxygen Flow Rate (L/min) 2 Oxygen Delivery Method Nasal Cannula Weight: 188 lb 4.396 oz Body Mass Index (BMI) 28.6 Intake & Output: Intake and Output for Last 24 Hours 04/21/21 04/22/21 04/23/21 23:59 23:59 23:59 Intake Total 2662 / 2662 Output Total 965 / 2165 1450 / 1450 Balance 1697 / 497 -1450 / -1450 Lab / Micro Data Result Diagrams: 04/17/21 10:23 04/17/21 10:23 Labs: Laboratory Results - last 24 hr 04/22/21 06:47: Activated Clotting Time 136 04/22/21 08:44: Activated Clotting Time 252 H Physical Exam HEENT HEENT Narrative: Neck Neck Narrative: Right lateral neck- incision c/d/i. No erythema or infection. Dried blood noted on the steri-strips. No significant ecchymosis. Extremity normal to inspection Neuro CN's II-XII intact bilaterally and no focal motor deficits Assessment & Plan Assessment/Plan (1) Carotid stenosis, right: PLAN: Ready for discharge Discharge instructions reviewed No further questions or concerns in regards to discharge Charges/Coding Visit Charges Inpatient E&M: 84089 Init Hosp L1 (no charge; post-op)
[2021-04-23] MEDS: Aspirin 81 MG TAB.CHEW PO (08:22)
[2021-04-23] MEDS: Carvedilol 25 MG Tablet PO (08:22)
[2021-04-23] MEDS: Magnesium Chloride 64 MG Delay Rel.Tablet 128 MG PO (08:22)
[2021-04-23] MEDS: amLODIPine 10 MG Tablet PO (08:22)
[2021-04-23 08:29] VITALS: BP 179/88; PULSE 65; RESP 18; TEMP 36.9; O2SAT 96
[2021-04-23 08:50] VITALS: O2SAT 96
[2021-04-23 09:21] VITALS: BP 144/65
--- NOTE | 2021-04-23 09:45 | CASEMGMT ---
LUZ MARINA NAIR Assessment: Face to Face with pt for initial transition planning/care coordination assessment. RN JOANIE introduced self and role at [facility], pt voices understanding and consents to assessment. Pt is A/O x4 and answers all questions appropriately at this time. Pt sitting up in chair, dressed and ready to be dc'd. Care providers, pharmacy, and demographics verified/updated. Admitting Dx: R carotid endarterectomy PCP:Rupali Valentin Specialists: Quoc Rocha, surgeon; pt consulted with an ortho as he needs a knee replacement. He is unsure of who this was. Preferred Pharmacy: [facility] Insurance: [facility], [employer] Prescription Benefit: yes LW/HPOA: Pt denies LNOK: Leeann March, dtr Living Arrangements: Pt lives with his dtr and granddtr in a single story house with 2 steps to enter. Pt denies concerns at home and reports I in ADL's. Transportation: Pt drives self and denies concerns with transportation. DME/HHC/SNF: Pt reports he had COVID in June and since then has a rented O2 unit that he saw from a tv ad. It is rented for 5 years. Pt states he does not use it. Denies hx of HHC or SNF stay. Pt drinks alcohol occasionally socially. He denies smoking cigarettes, illegal or street drug use. Pt states no concerns with going home at time of dc. Pt states no further concerns/needs. CM to follow. Advised pt to ask CM if any further question/concerns/needs arise, voices understanding. Pt Goal: Home Plan: Home
== END 2021-04-23 11:18 | disposition home or self-care (01) | DRG 39 ==
LOC: ACINP 05:43 → MS3 04-23 06:31
PROVIDERS: Anesthesiology; Admitting Provider Surgery; PCP Family Medicine; Referring Provider Surgery; Visit Provider Surgery
PROC: 03HY32Z Insertion of Monitoring Device into Upper Artery, Percutaneous Approach (ICD-10-PCS; CPT 35301; principal; 2021-04-22 07:10)
DX: I65.21 Occlusion and stenosis of right carotid artery (principal); I71.4 Abdominal aortic aneurysm, without rupture; I10 Essential (primary) hypertension; E78.5 Hyperlipidemia, unspecified; K63.5 Polyp of colon; Z88.0 Allergy status to penicillin; Z87.891 Personal history of nicotine dependence; Z86.16 Personal history of COVID-19; Z86.73 Personal history of transient ischemic attack (TIA), and cerebral infarction without residual deficits
CPT/HCPCS: 36415; 80048; 80076; 85027; 85347; 85610; 85730; 87426; 88300; 88304; 88311; 99251; 99282; J7040; J7120; G0463

== ENCOUNTER → 2021-05-15 12:37 | Outpatient (CLI) | payer MEDICARE, OTHER, SELFPAY ==
--- NOTE | 2021-05-15 12:43 | CDUL_ITS ---
Reason For Study: Occlusion and stenosis of bilateral carotid arteries, Vertigo Rt. Velocities/BP Prox CCA 89.1/13.4 cm/sec. Mid CCA 76/12.1 cm/sec. Dist CCA 106/13.4 cm/sec. Bulb, 123.5/13.8 cm/sec. Prox ICA 82.7/11.5 cm/sec. Mid ICA 70/18.8 cm/sec. Dist ICA 135.7/38.9 cm/sec. Rt. ICA/CCA = 1.52. Prox ECA 184.7/16.3 cm/sec. Rt. Vert. 46.5 cm/sec. Right Extracranial There is intimal thickening but no significant atherosclerotic plaque noted in the right common carotid artery. There is intimal thickening but no significant atherosclerotic plaque noted in the right internal carotid artery. There is homogeneous, smooth atherosclerotic plaque noted in the right external carotid artery. Antegrade flow is noted in the right vertebral artery. VL/Carotid Unilateral Interpretation Summary Widely patent postsurgical right carotid bulb and proximal internal carotid art joseph with less than 50% stenosis of the internal carotid artery proximally. 50 to 69% stenosis of the distal right internal carotid artery based upon veloc ity change at that point. Less than 50% stenosis right external carotid artery Patent antegrade right vertebral Marked postsurgical improvement of the right extracranial carotid artery from t he previous examination of December 31, 2020 Ordering Physician: Cara Abdullahi Referring Physician: Vern Valentin Performed By: Scarlet Leach RVT
== END ==
PROVIDERS: PCP Family Medicine; Visit Provider Surgery
DX: I65.23 Occlusion and stenosis of bilateral carotid arteries (principal)
CPT/HCPCS: 93882

== ENCOUNTER 2021-11-05 09:38 | Outpatient (CLI) | payer MEDICARE, OTHER, SELFPAY ==
--- NOTE | 2021-11-05 09:45 | CDU_ITS ---
Reason For Study: carotid stenosis Rt. Velocities/BP Lt. Velocities/BP Prox CCA 89.1/13.4 cm/sec. Prox CCA 113.3/18.8 cm/sec. Mid CCA 79.9/14.7 cm/sec. Mid CCA 106.0/22.5 cm/sec. Dist CCA 89.1/18.6 cm/sec. Dist CCA 102.3/18.8 cm/sec. Prox ICA 90.0/11.4 cm/sec. Prox ICA 72.8/15.7 cm/sec. Mid ICA 113.4/28.6 cm/sec. Mid ICA 97.0/33.3 cm/sec. Dist ICA 87.6/28.6 cm/sec. Dist ICA 82.7/24.9 cm/sec. Rt. ICA/CCA = 1.4. Lt. ICA/CCA = .9. Prox ECA 144.8/15.2 cm/sec. Prox ECA 130.2/4.2 cm/sec. Rt. Vert. 38.4 cm/sec. Lt. Vert. 37.2/9.0 cm/sec. Right Extracranial There is homogeneous, smooth atherosclerotic plaque noted in the right common carotid artery. There is heterogeneous, irregular atherosclerotic plaque noted in the right internal carotid artery. There is intimal thickening but no significant atherosclerotic plaque noted in the right external carotid artery. Antegrade flow is noted in the right vertebral artery. Left Extracranial There is heterogeneous, irregular atherosclerotic plaque noted in the left common carotid artery. There is homogeneous, smooth atherosclerotic plaque noted in the left internal carotid artery. There is intimal thickening but no significant atherosclerotic plaque noted in the left external carotid artery. Antegrade flow is noted in the left vertebral artery. Procedure Carotid Duplex [id number]. This is a Carotid Duplex examination using B-mode, color flow and specral Doppler. The exam was diagnostic. Exam performed in department. VL/Carotid Duplex Ultrasound Interpretation Summary Widely patent proximal right internal carotid artery with postoperative changes identified and less than 50% stenosis of the right internal carotid artery Less than 50% stenosis right external carotid artery Widely patent postoperative changes of the left carotid bulb and proximal inter nal carotid artery with less than 50% stenosis. Less than 50% stenosis left external carotid artery Patent and antegrade vertebral arteries bilaterally Ordering Physician: Oscar Rocha Performed By: Ramana Francois RVT
== END 2021-11-05 23:59 | disposition home or self-care (01) ==
LOC: CVS 09:39
PROVIDERS: PCP Family Medicine; Referring Provider Surgery; Visit Provider Surgery
DX: I65.23 Occlusion and stenosis of bilateral carotid arteries (principal)
CPT/HCPCS: 93880

== ENCOUNTER → 2021-12-22 | Outpatient (CLI) | payer MEDICARE, OTHER, SELFPAY ==
--- NOTE | 2021-12-22 14:28 | CT_ITS ---
STUDY: CTA LEFT UPPER EXTREMITIES REASON FOR EXAM: Male, 81 years old. LEFT ARM PAIN PARESTHESIAS W ELEVATION, KNOWN VASCULOPATHY, RADIATION DOSAGE (If Supplied By Facility): CTDIvol = ( 8.03 ) mGy, DLP = ( 831.91 ) mGycm TECHNIQUE: Axial CT angiography, multi-detector data acquisition was obtained from the neck base through the hands following intravenous administration of IV 100mL Isovue-370. 2.5 mm axial images and MIP images were reconstructed from the axial data set. Post-processing of the angiographic images was performed, with multiplanar reformation and 3D reconstruction. Individualized dose optimization techniques were used for this CT. COMPARISON: None. FINDINGS: THORACIC AORTA: Normal visualized ascending thoracic aorta, without soft or calcific atherosclerotic plaque formation, luminal stenosis or aneurysm. Normal visualized aortic arch, without soft or calcific atherosclerotic plaque formation, or luminal stenosis or aneurysm. Normal branching pattern of the great vessels. Normal visualized descending thoracic aorta, without soft or calcific atherosclerotic plaque formation, luminal stenosis or aneurysm. Normal origins of the brachiocephalic, left common carotid, and left subclavian arteries from the aortic arch, without soft or calcific atherosclerotic plaque formation or luminal stenosis. Normal visualized common carotid arteries, without soft or calcific atherosclerotic plaque formation or luminal stenosis. Normal visualized pulmonary parenchyma. Normal visualized mediastinum. Normal supraclavicular region without lymphadenopathy or soft tissue mass. Normal axillary region, without lymphadenopathy or soft tissue mass. Normal visualized osseous structures without a demonstrated destructive process. LEFT UPPER EXTREMITY: Normal subclavian artery, without soft or calcific atherosclerotic plaque formation, luminal stenosis or aneurysm. Normal visualized left vertebral artery arising from the left subclavian artery. Normal axillary artery, without soft or calcific atherosclerotic plaque formation, luminal stenosis or aneurysm. Normal brachial artery, without soft or calcific atherosclerotic plaque formation, luminal stenosis or aneurysm. Normal brachial trifurcation. Normal radial artery, continuous with the palmar arch, without atherosclerotic plaque formation, luminal stenosis or aneurysm. Normal ulnar artery, continuous with the palmar arch, without atherosclerotic plaque formation, luminal stenosis or aneurysm. Normal interosseous artery, continuous to the wrist, without atherosclerotic plaque formation, luminal stenosis or aneurysm. Normal visualized deep and superficial palmar arches and digital arteries. Normal osseous, muscular and subcutaneous structures in the left upper extremity. CT/CTA Upper Ext W/WO Contrast IMPRESSION: Unremarkable examination. Electronically Signed: Jorje Wilkes MD at 15:11 EDT ,
[2021-12-22 14:45] LABS: CREATININE FINGERSTICK 0.9 mg/dL (0.70-1.30); EGFR FINGERSTICK > 60.0000 mL/min (>60)
== END | disposition home or self-care (01) ==
LOC: CT 14:25
PROVIDERS: PCP Family Medicine; Visit Provider Family Medicine
DX: M79.602 Pain in left arm (principal); R20.2 Paresthesia of skin; I99.8 Other disorder of circulatory system
CPT/HCPCS: 73206; Q9967

== ENCOUNTER → 2022-03-30 | Outpatient (CLI) | payer MEDICARE, OTHER, SELFPAY ==
--- NOTE | 2022-03-30 08:57 | NEURO_ITS ---
NCS and/or EMG Patient Report Ordering Doctor: Clemente Madrid DATE OF SERVICE: 03/30/22 Indication: Approximately two years of left wrist pain, poor dexterity and numbness. Symptoms are less bothersome on the right. Hands go numb when elbows are bent and sometimes awakening from sleep. Findings: Nerve conduction studies were performed in the right and left upper extremities. The right median motor study recording the abductor pollicis brevis showed a normal amplitude, normal distal latency and normal conduction velocity. The right ulnar motor study recording the abductor digiti minimi showed a normal amplitude, normal distal latency and normal conduction velocity. No conduction block or focal slowing was present across the elbow. The right median sensory response recording digit two showed a normal amplitude, latency and conduction velocity. The right ulnar sensory response recording digit five showed a normal amplitude, latency and conduction velocity. The right radial sensory response recording over the extensor snuff box showed a normal amplitude, latency and conduction velocity. The left median motor study recording the abductor pollicis brevis showed a normal amplitude, prolonged distal latency and mildly slowed conduction velocity. The left ulnar motor study recording the abductor digiti minimi showed a normal amplitude, normal distal latency and normal conduction velocity. Conduction block (~50%) and focal slowing was present across the elbow. The left median sensory response recording digit two showed a normal amplitude, prolonged latency and slowed conduction velocity. The left ulnar sensory response recording digit five showed a normal amplitude, latency and conduction velocity. The left radial sensory response recording over the extensor snuff box showed a normal amplitude, latency and conduction velocity. Right median-ulnar lumbrical / interosseous motor latencies showed a normal median latency compared to the ulnar. Left median-ulnar lumbrical / interosseous motor latencies showed a prolonged median latency compared to the ulnar. Needle EMG of the right upper extremity muscles was performed. No denervation was seen in any muscle. All motor unit morphology, activation and recruitment patterns were normal. Needle EMG of the left upper extremity muscles was performed. No denervation was seen in any muscle, but insertional activity was increased in the first dorsal interosseous. Motor units in the first dorsal interosseous were large amplitude, long duration with reduced recruitment. Motor units in the medial flexor digitorum profundus were large amplitude, long duration with normal recruitment. All other motor unit morphology, activation and recruitment patterns were normal. Impression: This is an abnormal study. 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 The pathophysiology was predominantly demyel inating. These findings are compatible with the clinical diagnosis of carpal tunnel syndrome. 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 There was no electrophysiologic evidence of entrapment neuropathy in the right upper extremity. Please note: electrodiagnostic testing is appropriately 95% sensitive in detecting median neuropathy across the wrist when internal comparison studies are done. However, 5% of patients will have a false negative study. Presumably, in these patients, intermittent compression results in pain and paresthesias from ischemia, but without any fixed demyelination or axonal loss that can be demonstrated on electrodiagnostic studies. Rudy Faulkner D.O. Multi Select Codes Neurology Neurology Interp Codes: 40626-19 Musc test done w/n test comp (interp) (Qty:2) and 35995-00 Nrv cndj test 13/> studies (interp)
== END | disposition home or self-care (01) ==
LOC: PSN 07:21
PROVIDERS: PCP Family Medicine; Referring Provider Family Medicine; Visit Provider Family Medicine
DX: R20.2 Paresthesia of skin (principal)
CPT/HCPCS: 95886; 95912; 95913

== ENCOUNTER → 2022-05-21 | Outpatient (CLI) | payer MEDICARE, OTHER, SELFPAY ==
--- NOTE | 2022-05-21 08:43 | CDU_ITS ---
Reason For Study: carotid stenosis Rt. Velocities/BP Lt. Velocities/BP Prox CCA 73.0/13.5 cm/sec. Prox CCA 110.2/20.1 cm/sec. Mid CCA 83.4/13.5 cm/sec. Mid CCA 112.1/18.8 cm/sec. Dist CCA 91.0/16.3 cm/sec. Dist CCA 101.1/16.36 cm/sec. Prox ICA 124.7/17.0 cm/sec. Prox ICA 75.1/16.8 cm/sec. Mid ICA 83.9/23.7 cm/sec. Mid ICA 66.3/24.5 cm/sec. Dist ICA 94.9/27.4 cm/sec. Dist ICA 92.9/21.9 cm/sec. Rt. ICA/CCA = 1.5. Lt. ICA/CCA = .8. Prox ECA 200.4/21.5 cm/sec. Prox ECA 135.7/9.7 cm/sec. Rt. Vert. 40.0/7.8 cm/sec. Lt. Vert. 76.2/20.1 cm/sec. Right Extracranial There is homogeneous, smooth atherosclerotic plaque noted in the right common carotid artery. There is heterogeneous, irregular atherosclerotic plaque noted in the right internal carotid artery. There is homogeneous, smooth atherosclerotic plaque noted in the right external carotid artery. Antegrade flow is noted in the right vertebral artery. Left Extracranial There is heterogeneous, irregular atherosclerotic plaque noted in the left common carotid artery. There is heterogeneous, irregular atherosclerotic plaque noted in the left internal carotid artery. There is homogeneous, smooth atherosclerotic plaque noted in the left external carotid artery. Antegrade flow is noted in the left vertebral artery. Procedure Carotid Duplex [id number]. This is a Carotid Duplex examination using B-mode, color flow and specral Doppler. The exam was diagnostic. Exam performed in department. VL/Carotid Duplex Ultrasound Interpretation Summary Irregular plaque at the proximal right internal carotid artery with less than 5 0% stenosis but right at that range. Patent postoperative changes Greater than 50% stenosis right external carotid artery Widely patent postoperative changes of the left carotid bulb and proximal inter nal carotid artery with less than 50% stenosis Less than 50% stenosis left external carotid artery Patent and antegrade vertebral arteries bilaterally Ordering Physician: Oscar Rocha Performed By: Ramana Francois RVT
== END | disposition home or self-care (01) ==
LOC: CVS 08:38
PROVIDERS: PCP Family Medicine; Visit Provider Surgery
DX: I65.23 Occlusion and stenosis of bilateral carotid arteries (principal)
CPT/HCPCS: 93880

== ENCOUNTER → 2022-08-25 | Outpatient (CLI) | payer MEDICARE, OTHER, SELFPAY | END | disposition home or self-care (01) | LOC: LABSPEC 10:45 | PROVIDERS: PCP Family Medicine; Visit Provider Family Medicine | DX: R39.89 Other symptoms and signs involving the genitourinary system (principal) | CPT/HCPCS: 87086; 87088 ==

== ENCOUNTER → 2022-11-02 | Outpatient (CLI) | payer MEDICARE, SELFPAY ==
--- NOTE | 2022-11-02 13:43 | VDLE_ITS ---
Reason For Study: LEG PAIN RIGHT LEFT GSV is normal. GSV is normal. CFV is compressible, spontaneous, competent CFV is compressible, spontaneous, competent, and demonstrates pulsatile venous flow. and demonstrates pulsatile venous flow. FV is compressible, spontaneous, competent FV is compressible, spontaneous, competent and demonstrates pulsatile venous flow. and demonstrates pulsatile venous flow. POP V is compressible, spontaneous, competent POP V is compressible, spontaneous, competent and demonstrates pulsatile venous flow. and demonstrates pulsatile venous flow. T/P Trunk is compressible. T/P Trunk is compressible. PTV is compressible. PTV is compressible. RT PerV is compressible. LT PerV is compressible. Procedure This is a venous duplex using B-mode, color flow and spectral Doppler. Exam performed in department. The exam was diagnostic. A preliminary report was called and/or faxed to [facility] / Re[facility] Li. VL/Venous Duplex US - Jadiel Extrem Interpretation Summary Deep veins of the bilateral lower extremities are patent and compressible segme ntally. There is no evidence of bilateral lower extremity deep vein thrombosis. The bilateral great saphenous veins appear patent and compressible segmentally. Ordering Physician: Dewayne Frankel Referring Physician: MD Daniela Clemente Performed By: Swapnil Nicole RVT
== END | disposition home or self-care (01) ==
LOC: CVS 13:36
PROVIDERS: PCP Family Medicine; Referring Provider Physician Assistant Surgical; Visit Provider Physician Assistant Surgical
DX: M79.662 Pain in left lower leg (principal); M79.661 Pain in right lower leg
CPT/HCPCS: 93970

== ENCOUNTER → 2022-11-03 | Outpatient (CLI) | payer MEDICARE, SELFPAY ==
[2022-11-03 18:21] LABS: ALB/GLOB Ratio 1.2 RATIO (0.9-2.4); AST(SGOT) 22 U/L (15-37); Alanine Aminotransfer ALT/SGPT 32 U/L (16-61); Albumin, Serum 3.7 g/dL (3.2-5.0); Alkaline Phosphatase 68 U/L (45-117); Anion Gap 7 (5-15); BUN 17 mg/dL (7-18); BUN/Creat Ratio 15.7 RATIO (10-20); Calcium,Total 8.8 mg/dL (8.5-10.1); Chloride 110 mmol/L (98-107); Creatinine, Serum 1.08 mg/dL (0.70-1.30); EST Glomerular Filtration Rate 70 mL/min (>60); Est Glom Filt Rate - Afr Amer 84 mL/min (>60); Glucose 117 mg/dL (74-106); Potassium 4.3 mmol/L (3.5-5.1); Protein, Total 6.7 g/dL (6.4-8.2); Sodium Level 144 mmol/L (136-145); Thyroid Stim Hormone (TSH) 1.44 uIU/mL (0.358-3.74)
[2022-11-03 19:52] LABS: BNP,B-Type NATRIURETIC PEPTIDE 114.7 pg/mL (0-100)
[2022-11-03 19:55] LABS: Color, Urine Yellow (Yellow); Glucose, Dipstick Normal (Normal); Ketone-Dipstick Negative (Negative); Leukocyte Esterase-Dipstick Negative /ul (Negative); Nitrite-Dipstick Negative (Negative); Occult Blood-Urine Negative /ul (Negative); Protein-Dipstick Negative (Negative); Specific Gravity, Urine 1.015 (1.002-1.030); Urine Bilirubin Dipstick Negative (Negative); Urine Clarity Clear (Clear); Urine Urobilinogen Normal (Normal)
== END | disposition home or self-care (01) ==
LOC: BFHLAB 14:33
PROVIDERS: PCP Family Medicine; Referring Provider Family Medicine; Visit Provider Family Medicine
DX: R60.0 Localized edema (principal); R06.00 Dyspnea, unspecified
CPT/HCPCS: 36415; 80053; 81002; 83880; 84443

== ENCOUNTER → 2022-11-06 | Outpatient (CLI) | payer MEDICARE, SELFPAY ==
--- NOTE | 2022-11-06 08:39 | CDU_ITS ---
Reason For Study: Carotid Stenosis Rt. Velocities/BP Lt. Velocities/BP Prox CCA 86/17 cm/sec. Prox CCA 122/27 cm/sec. Mid CCA 83/19 cm/sec. Mid CCA 140/27 cm/sec. Dist CCA 91/17 cm/sec. Dist CCA 92/22 cm/sec. Prox ICA 128/30 cm/sec. Prox ICA 97/29 cm/sec. Mid ICA 128/35 cm/sec. Mid ICA 124/32 cm/sec. Dist ICA 129/43 cm/sec. Dist ICA 153/47 cm/sec. Rt. ICA/CCA = 1.5. Lt. ICA/CCA = 1.1. Prox ECA 187/18 cm/sec. Prox ECA 129/12 cm/sec. Rt. Vert. 33/3 cm/sec. Lt. Vert. 27/9 cm/sec. Right Extracranial There is heterogeneous, smooth atherosclerotic plaque noted in the right common carotid artery. There is heterogeneous, irregular atherosclerotic plaque noted in the right internal carotid artery. There is heterogeneous, smooth atherosclerotic plaque noted in the right external carotid artery. Antegrade flow is noted in the right vertebral artery. Left Extracranial There is heterogeneous, irregular atherosclerotic plaque noted in the left common carotid artery. There is heterogeneous, irregular atherosclerotic plaque noted in the left internal carotid artery. The left internal carotid artery is very tortuous. There is intimal thickening but no significant atherosclerotic plaque noted in the left external carotid artery. Antegrade flow is noted in the left vertebral artery. Procedure Carotid Duplex [id number]. This is a Carotid Duplex examination using B-mode, color flow and specral Doppler. Exam performed in department. VL/Carotid Duplex Ultrasound Interpretation Summary Postoperative changes of the right carotid bulb and proximal internal carotid a rtery with 50 to 69% stenosis based upon velocity. Postoperative changes of the left carotid bulb and proximal internal carotid ar ti with 50 to 69% stenosis based upon velocity. Patent and antegrade vertebral arteries bilaterally Slightly elevated bilateral internal carotid artery flow velocities may simply be secondary to postoperative carotid bulb changes and luminal difference. Tortuosity also note d on the left as well. Findings suggest slight change on the left from the previous examination of May rajesh2021 and clinically significant change on the right. Ordering Physician: Oscar Rocha Referring Physician: Clemente Madrid Performed By: Page Kerr, ABRAHAM, RVT
--- NOTE | 2022-11-06 08:39 | AAAS_ITS ---
Reason For Study: AAA Aorta Measurements Aorta Doppler Measurements Proximal aorta measures1.52cm x 1.63cm. in cross- Peak systolic flow velocities within the proximal sectional axis. aorta measure 116 cm/sec. Proximal aorta measures1.60cm. in longitudinal Peak systolic flow velocities within the mid aorta axis. measure 130 cm/sec. Mid aorta measures2.83cm x 3.11cm. in cross- Peak systolic flow velocities within the distal sectional axis. aorta measure 103 cm/sec. Mid aorta measures2.44cm. in longitudinal axis. Distal aorta measures2.87cm x 3.07cm. in cross- sectional axis. Distal aorta measures2.92cm. in longitudinal axis. Left Iliac Artery Left iliac artery measures 1.73cm x 1.71 cm. in the cross-sectional axis. Left iliac artery measures 1.71 cm. in the longitudinal axis. Peak systolic velocity in the left iliac artery measures 114 cm/sec. Right Iliac Artery Right iliac artery measures 1.33cm x 1.32 cm. in the cross-sectional axis. Right iliac artery measures 1.46 cm. in the longitudinal axis. Peak systolic velocity in the right iliac artery measures 90 cm/sec. Procedure Aorta IVC Iliac vasculature or bypass grafts [id number]. Exam performed in department. VL/AAA Screening Interpretation Summary Maximal aortic diameter in the mid abdominal aorta at 2.83 x 3.11 cm. Slightly elevated peak systolic flow of 130 cm second of in the mid abdominal a surya of indeterminate significance Left common iliac artery ectatic at 1.73 x 1.71 cm in diameter Right common iliac artery ectatic at 1.33 x 1.32 cm in diameter Ordering Physician: Oscar Rocha Referring Physician: Clemente Madrid Performed By: Page Kerr, RDCS, RVT
== END | disposition home or self-care (01) ==
LOC: CVS 08:35
PROVIDERS: PCP Family Medicine; Referring Provider Surgery; Visit Provider Surgery
DX: I71.40 Abdominal aortic aneurysm, without rupture, unspecified (principal); I65.23 Occlusion and stenosis of bilateral carotid arteries
CPT/HCPCS: 76706; 93880

== ENCOUNTER → 2022-11-16 | Outpatient (CLI) | payer MEDICARE, SELFPAY ==
[2022-11-16 16:25] LABS: Anion Gap 7 (5-15); BUN 17 mg/dL (7-18); BUN/Creat Ratio 15.7 RATIO (10-20); Calcium,Total 9.1 mg/dL (8.5-10.1); Chloride 110 mmol/L (98-107); Creatinine, Serum 1.08 mg/dL (0.70-1.30); EST Glomerular Filtration Rate 70 mL/min (>60); Est Glom Filt Rate - Afr Amer 84 mL/min (>60); Glucose 107 mg/dL (74-106); Potassium 4.2 mmol/L (3.5-5.1); Sodium Level 141 mmol/L (136-145)
== END | disposition home or self-care (01) ==
LOC: PAVLAB 14:55
PROVIDERS: PCP Family Medicine; Referring Provider Surgery; Visit Provider Surgery
DX: M79.89 Other specified soft tissue disorders (principal)
CPT/HCPCS: 36415; 80048

== ENCOUNTER → 2022-12-11 | Outpatient (CLI) | payer MEDICARE, SELFPAY ==
[2022-12-11 15:39] LABS: Absolute Lymphocyte Count 1.64 X10^3/uL (0.83-4.51); Absolute Neutrophil Count 4.3 X10^3/uL (2.0-7.7); Basophil# 0.06 X10^3/uL; Basophil% 0.9 % (0-1); Eosinophil# 0.23 X10^3/uL; Eosinophils% 3.3 % (0-5); Hematocrit 32.2 % (40-54); Hemoglobin 9.3 g/dL (13.0-16.5); Lymphocyte # 1.64 X10^3/ul (0.83-4.51); Lymphocyte % 23.7 % (19-41); Mean Corp Hgb Conc 28.9 g/dL (32-36); Mean Corpuscular Volume 79.5 fL (80-94); Mean Platelet Vol. 10.4 fl (6.2-12.0); Monocyte% 8.7 % (0-10); NRBC Flagged by Analyzer 0 % (0-5); Neutrophil # 4.34 X10^3/uL (2.7-7.7); Neutrophil % 62.8 % (47-70); POSITIVE MORPHOLOGY YES; Platelet Count 297 K/mm3 (150-450); RBC Distribution Width CV 22.8 % (11.6-14.6); RBC Distribution Width SD 62.8 fl (35.1-43.9); Red Blood Count 4.05 M/mm3 (4.6-6.2); White Blood Count 6.9 K/mm3 (4.4-11.0)
[2022-12-11 16:07] LABS: Differential Indicated SCAN CRITERIA MET
[2022-12-11 16:25] LABS: ALB/GLOB Ratio 1.2 RATIO (0.9-2.4); AST(SGOT) 19 U/L (15-37); Alanine Aminotransfer ALT/SGPT 22 U/L (16-61); Albumin, Serum 3.7 g/dL (3.2-5.0); Alkaline Phosphatase 76 U/L (45-117); Anion Gap 4 (5-15); BUN 18 mg/dL (7-18); BUN/Creat Ratio 17.5 RATIO (10-20); Calcium,Total 8.8 mg/dL (8.5-10.1); Chloride 111 mmol/L (98-107); Creatinine, Serum 1.03 mg/dL (0.70-1.30); EST Glomerular Filtration Rate 73 mL/min (>60); Est Glom Filt Rate - Afr Amer 89 mL/min (>60); Globulin 3.2 g/dL (2.2-4.2); Glucose 98 mg/dL (74-106); Potassium 4.4 mmol/L (3.5-5.1); Protein, Total 6.9 g/dL (6.4-8.2); Sodium Level 141 mmol/L (136-145)
[2022-12-11 18:16] LABS: Anisocytosis 1+; Microcytosis 1+; Platelet Estimate ADEQUATE (ADEQ); Red Cell Morphology N CHROM NORMAL (NORM C&C)
[2022-12-13 08:08] LABS: Carcinoembryonic Antigen 4.3 ng/mL (0.0-4.7)
== END | disposition home or self-care (01) ==
PROVIDERS: PCP Family Medicine; Referring Provider Surgery; Visit Provider Surgery
DX: I71.41 Pararenal abdominal aortic aneurysm, without rupture (principal); D37.4 Neoplasm of uncertain behavior of colon
CPT/HCPCS: 36415; 80053; 82378; 85025

== ENCOUNTER → 2023-01-04 | Outpatient (CLI) | payer MEDICARE, SELFPAY ==
[2023-01-04 18:40] LABS: Ferritin 138 ng/mL (26-388); Iron 24 ug/dL (65-175)
== END | disposition home or self-care (01) ==
LOC: BFHLAB 16:08
PROVIDERS: PCP Family Medicine; Referring Provider Nurse Practitioner Family; Visit Provider Nurse Practitioner Family
DX: E61.1 Iron deficiency (principal)
CPT/HCPCS: 36415; 82728; 83540

== ENCOUNTER → 2023-02-12 | Outpatient (CLI) | payer MEDICARE, SELFPAY ==
[2023-02-12 17:33] LABS: Absolute Lymphocyte Count 2.15 X10^3/uL (0.83-4.51); Absolute Neutrophil Count 4.1 X10^3/uL (2.0-7.7); Basophil# 0.03 X10^3/uL; Basophil% 0.4 % (0-1); Eosinophil# 0.16 X10^3/uL; Eosinophils% 2.2 % (0-5); Hematocrit 27.6 % (40-54); Lymphocyte # 2.15 X10^3/ul (0.83-4.51); Lymphocyte % 29.4 % (19-41); Mean Corpuscular Hgb 26.9 pg (27.0-32.0); Mean Corpuscular Volume 92.9 fL (80-94); Mean Platelet Vol. 11.1 fl (6.2-12.0); Monocyte# 0.87 X10^3/uL; Monocyte% 11.9 % (0-10); NRBC Flagged by Analyzer 0 % (0-5); Neutrophil # 4.07 X10^3/uL (2.7-7.7); Neutrophil % 55.7 % (47-70); Platelet Count 265 K/mm3 (150-450); RBC Distribution Width CV 18.8 % (11.6-14.6); RBC Distribution Width SD 62.7 fl (35.1-43.9); Red Blood Count 2.97 M/mm3 (4.6-6.2); White Blood Count 7.3 K/mm3 (4.4-11.0)
[2023-02-12 17:46] LABS: Vitamin B12 557 pg/mL (211-911)
[2023-02-12 17:57] LABS: Ferritin 61 ng/mL (26-388); Iron 15 ug/dL (65-175); Iron Binding Capacity,Total 330 ug/dL (250-450); PERCENT IRON SATURATION 4.5 % (15.0-55.0)
== END | disposition home or self-care (01) ==
LOC: MTLAB 15:50
PROVIDERS: PCP Family Medicine; Referring Provider Nurse Practitioner Family; Visit Provider Nurse Practitioner Family
DX: D64.9 Anemia, unspecified (principal)
CPT/HCPCS: 36415; 82607; 82728; 82746; 83540; 83550; 85025

== ENCOUNTER → 2023-03-22 | Outpatient (CLI) | payer MEDICARE, SELFPAY ==
--- NOTE | 2023-03-22 13:54 | PCM.CR.HP2 ---
CR - History & Physical General Arrival date:: 03/22/23 Arrival time:: 13:54 Date of Referral:: 03/17/23 Date of CR Evaluation:: 03/22/23 Referring Physician: Dr. Toni Funk Primary Diagnosis: CABG History of Present Cardiac Event Onset Date Coronary Artery Bypass Graft:: Yes Vessel: 12/24/22 Medications Ambulatory Orders Medication Instructions Recorded atorvastatin 80 mg tablet 80 mg PO DAILY HDL 11/06/20 aspirin 81 mg chewable tablet 81 mg PO DAILY@0800 heart health 04/15/21 apixaban 5 mg tablet (Eliquis) 5 mg PO BID 03/09/23 ascorbate calcium (vitamin C) 500 1 g PO DAILY 03/09/23 mg tablet calcium carbonate 600 mg calcium 600 mg PO BID 03/09/23 (1,500 mg) tablet cholecalciferol (vitamin D3) 125 125 mcg PO DAILY 03/09/23 mcg (5,000 unit) capsule famotidine 20 mg tablet 20 mg PO DAILY 03/09/23 ferrous sulfate 325 mg (65 mg 325 mg PO Q OTHER DAY 03/09/23 iron) tablet (Feosol) hydrochlorothiazide 25 mg tablet 25 mg PO DAILY 03/09/23 meclizine 25 mg tablet 25 mg PO Q6H PRN 03/09/23 melatonin 10 mg tablet 10 mg PO HS 03/09/23 omeprazole 40 mg capsule,delayed 40 mg PO DAILY 03/09/23 release sennosides 8.6 mg-docusate sodium 2 tab-cap PO BID PRN 03/09/23 50 mg capsule (Senna Plus) sucralfate 1 gram tablet 1 g PO QACHS PRN 03/09/23 ferrous gluconate 324 mg (38 mg 324 mg PO DAILY 03/16/23 iron) tablet metoprolol tartrate 50 mg tablet 50 mg PO BID 03/16/23 amlodipine 10 mg tablet 10 mg PO DAILY #90 tabs 03/17/23 pantoprazole 40 mg tablet,delayed 40 mg PO DAILY 03/17/23 release Allergies Allergies Penicillins Allergy (Verified 03/17/23 10:58) Other Sleep Disorder Evaluation Hx of Sleep Apnea: Yes Do you snore loudly (louder than talking or can be heard through closed doors)?: No Do you often feel tired/ fatigued/ sleepy during daytime?: No Has anyone observed you stop breathing during sleep?: No History of Hypertension (for STOP score): Yes STOP Results: Negative Advanced Directives Advanced Directives Power of Formula Room Worker: No Living Will: Yes Advance Directives Information Provided: No Advance Directives on File: No DNR Order?:: No Past Medical History Covid-19 Screening Physicial Symptoms Other Clinical Concerns Exposure Risk Pertinent Comorbidities Has a serious heart condition:: Yes Past Medical Illness Past Medical History (Updated 03/17/23 @ 11:[address] Toni Funk MD) AAA (abdominal aortic aneurysm) I71.4 Abdominal muscle strain S39.011A Abnormal abdominal CT scan R93.5 Acute sore throat J02.9 Alcohol use Z72.89 SOCIAL Anemia D64.9 Arthritis M19.90 Back pain M54.9 SPINAL STENOSIS Carotid stenosis, right I65.21 Colon polyps K63.5 Colon tumor D49.0 ~found 04/11/21 colonoscopy, no malignancy Colonic mass K63.89 Coronary atherosclerosis I25.10 S/P CABG and DORYS device Diastolic heart failure I50.30 Diverticulosis K57.90 Easy bruising R23.8 Former smoker Z87.891 QUIT 25 YRS AGO High cholesterol E78.00 History of COVID-19 Z86.16 06/2020 History of diverticulitis Z87.19 History of echocardiogram Z92.89 04/24/2016 History of renal artery stenosis Z86.79 History of stent insertion of renal artery Z98.890 History of stress test Z92.89 09/25/2015 HTN (hypertension) I10 CONTROLLED ON MED, WHITE COAT SYNDROME Hyperlipidemia E78.5 Hypertension I10 Hypertensive urgency I16.0 Impaired fasting glucose R73.01 Left carpal tunnel syndrome G56.02 EMG/NCS 15/ Leg cramps R25.2 FEELS FROM BP MED Leg swelling M79.89 Osteoarthritis M19.90 Personal history of colonic polyps Z86.010 Pes anserinus bursitis M70.50 Presence of left atrial appendage closure device Z95.818 Shortness of breath on exertion R06.02 Sleep apnea G47.30 NON-COMPLIANT Spinal stenosis M48.00 Spinal stenosis of lumbar region M48.061 Stenosis of left internal carotid artery I65.22 Symptomatic stenosis of both carotid arteries I65.23 Tachycardia R00.0 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 LICE with bovine angioplasty, Dr. Rocha. 04/22/2021. RICE with Bov Patch A-plasty History of carotid endarterectomy Z98.890 LEFT 12/04/20 History of colonoscopy Z98.890 04/11/21 History of coronary artery bypass graft (~01/2023) Z95.1 + CABG X 2 with DORYS devices in 12/2022 History of stent insertion of renal artery Z98.890 Status post left knee replacement Z96.652 07/07 Family History Summary Family History Father Heart disease Myocardial infarction 65 Cancer liver Mother Diabetes Brother Diabetes Social History Smoking History Smoking Status: Former smoker Years Smokin Packs Smoked per Day: 1 Hx Smoking Exposure: Yes Alcohol Use Alcohol Usage: No Substance Abuse Hx Substance Use: No Occupation Occupation (List type of work in comments):: Retired Hobbies, Recreation, Social Activities Hobbies: Other (cars) Recreational Activities: I am able to engage in all my recreational activities Social Environment Status Marital Status: Current Living Arrangements Living Environment:: Alone Children How many children do you have?: 6 Do any of your children live nearby?: Yes Safety Do you feel safe in your surroundings?: Yes Assistance Do you need any assistance at home?: none Review of Systems Review of Systems Hints Review of Present Symptoms: Reports PVD, Operative Discomfort, Fatigue, Appetite - Normal and Sleep - Normal; Denies Shortness of Breath at Rest, Shortness of Breath with Exertion, Angina, Wound Healing, Dizziness/Lightheadedness, Heart Arrhythmia/Irregularities, Appetite - Special Diet or Sexual Changes Pain Is Patient Pain Free?: No Pain Location: back and other (knee) Pain Level: 3/10 Risk Factor Assessment Chief Complaint Chief Complaint: CABG Vital Signs Pulse Ox: 96 Blood Pressure: 180/90 (pt states he has white coat ) Pulse Pulse Rate: 63 Pulse Rhythm: Regular Hypertension How long have you been treated?: 30 Diabetes Nutrition Referral for Diabetes: No Obesity Height: 5 ft 7 in Weight:: 184 lb 9.6 oz Weight in Pounds: 184.6 lbs Body Mass Index (BMI): 28.9 Nutritional Referral for Obesity: No Physical Inactivity Physical Inactivity: None Risk Stratification Risk Guidelines: Moderate Risk: Risk Factor for Smoking, Risk Factor for Diabetes, Risk Factor for Obesity, Risk Factor for Sedentary Lifestyle and Risk Factor for Depression and Highest Risk: Risk Factor for Dyslipidemia and Risk Factor for Hypertension For Smoking Smoking Risk Guidelines For Dyslipidemia Dyslipidemia Risk Guidelines For Diabetes Mellitus Diabetes Risk Guidelines For Obesity/Overweight Obesity/Overweight Risk Guidelines For Hypertension Hypertension Risk Guidelines For Sedentary Lifestyle Sedentary Lifestyle Risk Guidelines For Depression Depression Risk Guidelines Family History Family History Father Heart disease Myocardial infarction 65 Cancer liver Mother Diabetes Brother Diabetes Motivation Motivation to Participate On a scale of 1 to 10, how prepared are you to commit to attending program?: 5 What do you see as barriers to successfully being able to complete the program?: nothing What do you see as the benefits of succesfully completing the program? In other words, what do you hope to get out of participating in the program?: more energy Are there issues you are dealing with that will interfere with completing the program?: no Do you have a spouse or signficant other, family or friends who will help support you to complete the program?: yes
--- NOTE | 2023-03-22 14:04 | PCM.CR.ITP ---
Diagnosis General Information Admitting Diagnosis: CABG Personal Learning Style:: Audio/Visual Stage of change r/t lifestyle modifications:: Contemplation Gave educational material for:: Treating Heart Disease, How The Heart Works, What it means to have Heart Disease, How Coronary Artery Disease is Diagnosed, Heart Procedures, What Heart Medications Do, Risk Factors & Modifications, Living an Active Life, Nutrition, Emotions & Heart Disease, Stress Management & Relaxation and Sleep Disorders & Heart Disease Education/Goals Cardiac Rehabilitation Goals Personal Goals: Initial Assessment: Improve energy level, Get back to work, or to resume activities faster, Improve muscle strength and endurance and Control risk factors (learn risk factor modification) Scale for measuring improvement of personal goals Diagnosis & Disease Process Outcomes/Goals: Pt IDs own risk factors & lifestyle modifications by Session 10, Verbalizes symptoms of angina & response by session 3., Pt independently manages and Other Additional Outcomes/Goals: Plan/Interventions: Assist Pt to ID & engage in lifestyle modification to reduce CVD risk, Instruct on individual risk factors, Review symptoms of angina & emergency actions, Review secondary diagnosis & identify educational needs. and Other see comment 30 day Reassessments:: Not Met 30 day Reassessments:: Not Met 30 day Reassessments:: Not Met 30 day Reassessments:: Not Met Final Reassessments:: Not Met Safety Referral to Physical Therapy: No Referral to [facility] Case Management: No Fall Risk Assessed:: Yes Assistive Devices:: None Exercise - Initial Assessment Visit Date of Eval: 03/22/23 (initial eval ) Mets: Pre-: >3 METS for 30 minutes by discharge, >5 METS for 30 minutes by discharge, >7 METS for 30 minutes by discharge and Unable to meet goal due to: (see comment below) Physician Prescribed Exercise Modalities: Treadmill, Rower, Airdyne, NuStep, SciFit and Lateral Gas [place] Frequency: 3x/week for 12 weeks [36 sessions] Intensity: 60-80% of age predicted maximum heart rate reserve Duration: 30 - 45 minutes Current METSs:: 3.0 Target Heart Rate:: 86-97 EKG Type: SR Outcomes & Goals Goals:: Verbalizes understanding of THR, RPE & goal METS by session 6, Documents in home exercise log/reports 30 min aerobic 5 day/wk by DC, Demonstrates accurate pulse taking by DC and Other additional outcome/goals: see below Intervention & Plan Exercise Program Goals: Instruct on personal THR & RPE, Instruct on MET level & personal MET goal, Show patient to take own pulse /validate performance until accurate, Instruct on home exercise and Other additional plan/int Physical Activity Home Exercise Physical Activity - Home Exercise: Safe Exercise, Warm-up, Self-monitoring, Cool-Down, Home Exercise > 30 min Daily and Sitting Time <3 hours/daily Outcomes & Goals Outcomes/Goals: Demonstrates correct Warm-up/exercise Cool-Down (S3) if = 2.5 METs, Verbalizes symptoms of exercise intolerance by Session 3 (S3), Demonstrate safe equipment use (S3) & follows exercise prescrition (6) and Other: See below Intervention & Plan Plan/Intervention: Instruct warm-up & cool-down if exercising at > 2 METs, Instruct on symptoms of exercise intolerance & actions to take, Instruct & monitor on saf, Assess intial functional capacity & safety risk and Other See below Nutrition - Initial Assessment Program Goals Nutrition Program Goals Patient has diagnosis of Hyperlipidemia (ICD E78)?: Yes Visit Date of Eval: 03/22/23 (initial eval ) Cholesterol/Lipids (Other Core Measures) Determine presence & major risk factors that modify LDL goal: Cigarette smoking, Hypertension or hypertensive medication, Low HDL cholesterol <40 mg/dL*, Family history of premature CHD in Male < 55 years: female <65 yearsFa and Age men > 45 years; women >/= 55 years Outcomes/Goals: Pt IDs own risk factors & lifestyle modifications by Session 10, Verbalizes symptoms of angina & response by session 3., Pt independently manages and Other Additional Outcomes/Goals: Intervention/Plan: Advocate for lipid panel cholesterol medication if applicable, Instruct on personal lipid levels & lipid goals/NCEP guidelines, Instruct on cholesterol and Other additional plan/int Referral to dietitian:: Yes Diabetes (Other Core Measures) Diabetes Type: Not Applicable Weight Mgt (Other Care) Height: 5 ft 7 in Weight:: 184 lb 9.6 oz BMI: 28.9 Diagnosis Overweight/Obesity BMI> 30% ICD-10 E66: No Diagnosis High BMI/Morbid Obesity BMI> 35% ICD-10 Z68: No Outcomes/Goals: Pt sets, maintains & shows weight loss goal & trend during rehab and Other additional outcomes/goals Intervention/Plan: Instruct on ideal BMI & set weight loss goal w/patient, Assist pt to ID & incorporate diet changes for weight loss by S9, Refer to Structured Weight Loss program as appropriate, Encourage goal of using 250-300dcal per session for weight loss and Other additional plan/interventions Healthy Eating Habits Will attend diet classes:: Yes Outcomes/Goals:: Consume diet rich in vegs,fruits,whole grain/high fiber,fish,lean meat, Limit sat/trans fats,cholesterol & added salts & sugars and Other additional outcome/goals: Intervention/Plan:: Assess current eating habits and Other Additional plan/interventions Education Gave educational materials for:: Signs & symptoms of hypoglycemia, Signs & symptoms of hyperglycemia, Relate diabetes to coronary artery disease and Healthy eating Core - Initial Assessment Visit Date of Eval: 03/22/23 (initial eval) Medication Compliance Preventative Medication(s):: Aspirin, LUKAS inhibitor, Statin/lipid and Beta kristopher H/O mental health issues: depression, anxiety, or addiction?: No Doesn?t believe in the benefits of treatment?: No Believes medications are unnecessary or harmful?: No Has a concern about medication side effects?: No Expresses concern over the cost of medications?: No Outcomes/Goals: Verbalizes medications,desired effect & common side effects @ DC, Pt self-reports following medication regimen, Keeps card in wallet w/medications listed by DC and Other additional outcome/goals: Interventions/plans: Instruct on medication effects & side effects, Review medication list w/patient every two weeks, Instruct importance of taking meds as ordered & assist problem solving and Other additional Tobacco Use Tobacco Use: Non-smoker Hypertension Hypertension Diagnosis:: Hypertension ICD-10 I10 Resting Blood Pressure:: 180/90 [place] [employer] Hypertension Guidelines Outcomes/Goals: Able to verbalize/achieve optimal blood pressure <130/80, Incorporates diet changes & exercise for blood pressure control by DC and Other additional outcomes/goals Tobacco Cessation Referral Smoking Cessation Referral:: No Individual Education/Counseling:: No Education Schedule Given:: Yes Psychosocial - Initial Assess VIsit Date of Eval: 03/22/23 (initial eval ) History of previous Mental disease:: No Target Goals Target Goals Outcomes/Goals: See list Psychosocial Outcomes/Goals:: ID's personal stressors & 2 strategies to manage stress by discharge and Other Additional outcome/goals: Intervention/Plan: See List Interventions/Plan:: Assess stressors,coping strategies & signs of derpression on admission, Instruct/assist pt to develop coping & personal stress Mgt strategies, Refer to Behavioral Health if appropriate, Refer to Physician if appropriate, Instruct patient to recognize signs & symptoms of depression, Instruct patient to recog and Other additional plan/intervention Patient Health Questionnaire PHQ-9 Screening Initial Assessment: 1. Little interest or pleasure in doing things: Several days 2. Feeling down, depressed, or hopeless: Not at all 3. Trouble falling or staying asleep, or sleeping too much: Several days 4. Feeling tired or having little energy: More than half the days 5. Poor appetite or overeating: Not at all 6. Feeling bad about yourself -- or that you are a failure or have let yourself or your family down: Not at all 7. Trouble concentrating on things, such as reading the newspaper or watching television: Not at all 8. Moving or speaking so slowly that other people could have noticed. Or the opposite - being so fidgety or restless that you have been moving around a lot more than usual: Not at all 9. Thoughts that you would be better off , or of hurting yourself in some way: Not at all How difficult have these problems made it for you to do your work, take care of things at home, or get along with other people?: Not difficult at all Total Score: 4 GUSTAVO-Q SV Test Statements CAD is a disease of the arteries in the heart: False Examples of risk factors for heart disease: True Angina is chest pain or discomfort: True The benefits of resistance training include: True Eating more meat and dairy products: False Anti-platelet medications such as aspirin are important: True The only effective way to manage stress: False An exercise warm-up slowly increases heart rate: I Don't Know Prepared, processed foods usually have high sodium: True Depression is common after a heart attack: True The statin medications lower cholesterol: True To control blood pressure, lower the amount of sodium: True If someone gets chest discomfort during walking: False Transfats are partially hydrogenated vegetable oils: True Sleep apnea that is not treated increases the risk: I Don't Know To control cholesterol, one should become a vegetarian: False Someone knows if he/she is exercising at the right level: I Don't Know Diabetes cannot be prevented with exercise & health eating: I Don't Know Stress is a large risk for heart attack: True A diet that can help lower blood pressure is rich in: True Total Score Total Correct Responses: 16 Self-Efficacy 6-Item Scale Initial Assessment: We would like to know how confident you are in doing certain activities. Please select your confidence level for: Fatigue Select Number: 5 Physical Discomfort or Pain Select Number: 5 Emotional Distress Select Number: 8 Other Symptoms or Health Problems Select Number: 4 Different Tasks and Activities Select Number: 8 Medication Select Number: 10 Total Score:: 6 Nutrition Survey Nutrition Survey Instructions Scoring Instructions Nutrition Survey Initial: Have you lost >10 lbs over the past 2 months without trying?: No Are you following a special diet at home for diabetes, low fat, or low salt?: Yes Are you interested in meeting with a dietitian for help understanding your diet?: No Do you eat less than 3 meals a day?: Yes Do you eat fatty meats (thomas, sausage, ribs, etc), fried foods, desserts, large amounts of salad dressings, margarine, butter, or cheese most days?: No Do you have food allergies? [Enter types in comment field]: No Do you eat in restaurants more than 3 times a week?: No Do you season food with salt, seasoning salt, or garlic salt?: No Do you used canned, boxed, frozen meals, or soups, seasoning packets?: No Total Score:: 2 Exercise - Final/Discharge Physician Prescribed Exercise Modalities: Treadmill, Rower, Airdyne, NuStep, SciFit and Lateral [place] Frequency: 3x/week for 12 weeks [36 sessions] Intensity: 60-80% of age predicted maximum heart rate reserve Current METSs:: 3.0 Target Heart Rate:: 86-97 Nutrition - 30-Day Assessment Weight Mgt (Other Care) Height: 5 ft 7 in Weight:: 184 lb 9.6 oz BMI: 28.9 Nutrition - 60-Day Assessment Weight Mgt (Other Care) Height: 5 ft 7 in Weight:: 184 lb 9.6 oz BMI: 28.9 Core - Final Assessment Hypertension Resting Blood Pressure:: 180/90 [place] [employer] Hypertension Guidelines Core - 60-Day Assessment Hypertension Resting Blood Pressure:: 180/90 [place] [employer] Hypertension Guidelines Psychosocial - 30-Day Assess Target Goals Target Goals Psychosocial - 60-Day Assess Target Goals Target Goals Psychosocial - 90-Day Assess Target Goals Target Goals Psychosocial - Final Assessmen Target Goals Target Goals Nutrition - 90-Day Assessment Weight Mgt (Other Care) Height: 5 ft 7 in Weight:: 184 lb 9.6 oz BMI: 28.9 Nutrition - Final Assessment Program Goals Patient has diagnosis of Hyperlipidemia (ICD E78)?: Yes Weight Mgt (Other Care) Height: 5 ft 7 in Weight:: 184 lb 9.6 oz BMI: 28.9
[2023-03-22 14:18] VITALS: BMI 28.9
[2023-03-22 14:20] VITALS: PULSE 63; O2SAT 96
[2023-03-22 14:25] VITALS: BP 180/90
[2023-03-22 14:50] VITALS: BMI 28.9
[2023-03-22 15:02] VITALS: BP 180/90
== END | disposition home or self-care (01) ==
LOC: CR 13:40
PROVIDERS: PCP Family Medicine; Referring Provider Internal Medicine Cardiovascular Disease; Visit Provider Internal Medicine Cardiovascular Disease
DX: Z95.1 Presence of aortocoronary bypass graft (principal)

== ENCOUNTER 2023-04-02 10:15 | Outpatient (RCR) | payer MEDICARE, SELFPAY ==
[2023-03-22 14:11] VITALS: BMI 28.9
--- NOTE | 2023-04-21 10:31 | PCM.CR.ITP ---
Exercise - Initial Assessment Visit Session #:: 3 Comments:: pt is on medical hold Nutrition - Initial Assessment Weight Mgt (Other Care) Height: 5 ft 7 in Weight:: 186 lb 8 oz BMI: 29.2 Psychosocial - Initial Assess Target Goals Target Goals Patient Health Questionnaire PHQ-9 Screening 30-Day Re-eval Assessment: 1. Little interest or pleasure in doing things: Several days 2. Feeling down, depressed, or hopeless: Not at all 3. Trouble falling or staying asleep, or sleeping too much: Several days 4. Feeling tired or having little energy: More than half the days 5. Poor appetite or overeating: Not at all 6. Feeling bad about yourself -- or that you are a failure or have let yourself or your family down: Not at all 7. Trouble concentrating on things, such as reading the newspaper or watching television: Not at all 8. Moving or speaking so slowly that other people could have noticed. Or the opposite - being so fidgety or restless that you have been moving around a lot more than usual: Not at all 9. Thoughts that you would be better off , or of hurting yourself in some way: Not at all How difficult have these problems made it for you to do your work, take care of things at home, or get along with other people?: Not difficult at all Total Score: 4 Self-Efficacy 6-Item Scale 30-Day Re-eval Assessment: We would like to know how confident you are in doing certain activities. Please select your confidence level for: Fatigue Select Number: 5 Physical Discomfort or Pain Select Number: 5 Emotional Distress Select Number: 8 Other Symptoms or Health Problems Select Number: 4 Different Tasks and Activities Select Number: 8 Medication Select Number: 10 Total Score:: 6 Nutrition Survey Nutrition Survey Instructions Scoring Instructions Exercise - 30-day Assessment Visit Date of Eval: 04/21/23 Session #:: 3 Comments:: pt is on medical hold Physician Prescribed Exercise Modalities: Rower, Airdyne and NuStep Frequency: 3x/week for 12 weeks [36 sessions] Intensity: 60-80% of age predicted maximum heart rate reserve Duration: 30 - 45 minutes Current METSs:: 3 Target Heart Rate:: 83-97 Current RPE:: 11-12.5 Maximum Excercise HR:: 93 Resting Blood Pressure: 152/74 Maximum Exercise Blood Pressure: 170/80 EKG Type: NSR with rare PVC Outcomes & Goals Goals:: Verbalizes understanding of THR, RPE & goal METS by session 6, Documents in home exercise log/reports 30 min aerobic 5 day/wk by DC, Demonstrates accurate pulse taking by DC and Other additional outcome/goals: see below Intervention & Plan Exercise Program Goals: Instruct on personal THR & RPE, Instruct on MET level & personal MET goal, Show patient to take own pulse /validate performance until accurate, Instruct on home exercise and Other additional plan/int 30-day Reassessments 30 day Reassessments:: Not Met Reassessment Notes & Comments:: pt is on med hold Physical Activity Home Exercise Physical Activity - Home Exercise: Safe Exercise, Warm-up, Self-monitoring, Cool-Down, Home Exercise > 30 min Daily and Sitting Time <3 hours/daily Outcomes & Goals Outcomes/Goals: Demonstrates correct Warm-up/exercise Cool-Down (S3) if = 2.5 METs, Verbalizes symptoms of exercise intolerance by Session 3 (S3), Demonstrate safe equipment use (S3) & follows exercise prescrition (6) and Other: See below Intervention & Plan Plan/Intervention: Instruct warm-up & cool-down if exercising at > 2 METs, Instruct on symptoms of exercise intolerance & actions to take, Instruct & monitor on saf, Assess intial functional capacity & safety risk and Other See below 30-day Reassessments 30 day Reassessments:: Not Met Nutrition - 30-Day Assessment Program Goals Nutrition Program Goals Patient has diagnosis of Hyperlipidemia (ICD E78)?: Yes Visit Date of Eval: 04/21/23 Session #:: 3 Cholesterol/Lipids (Other Core Measures) Determine presence & major risk factors that modify LDL goal: Cigarette smoking, Hypertension or hypertensive medication, Low HDL cholesterol <40 mg/dL*, Family history of premature CHD in Male < 55 years: female <65 yearsFa and Age men > 45 years; women >/= 55 years Outcomes/Goals: Pt IDs own risk factors & lifestyle modifications by Session 10, Verbalizes symptoms of angina & response by session 3., Pt independently manages and Other Additional Outcomes/Goals: Intervention/Plan: Advocate for lipid panel cholesterol medication if applicable, Instruct on personal lipid levels & lipid goals/NCEP guidelines, Instruct on cholesterol and Other additional plan/int 30-day Reassessments:: Not Met Diabetes (Other Core Measures) Diabetes Type: Not Applicable Weight Mgt (Other Care) Height: 5 ft 7 in Weight:: 186 lb 8 oz BMI: 29.2 Diagnosis Overweight/Obesity BMI> 30% ICD-10 E66: No Diagnosis High BMI/Morbid Obesity BMI> 35% ICD-10 Z68: No Outcomes/Goals: Pt sets, maintains & shows weight loss goal & trend during rehab and Other additional outcomes/goals Intervention/Plan: Instruct on ideal BMI & set weight loss goal w/patient, Assist pt to ID & incorporate diet changes for weight loss by S9, Refer to Structured Weight Loss program as appropriate, Encourage goal of using 250-300dcal per session for weight loss and Other additional plan/interventions 30 day Reassessments:: Not Met Healthy Eating Habits Outcomes/Goals:: Consume diet rich in vegs,fruits,whole grain/high fiber,fish,lean meat, Limit sat/trans fats,cholesterol & added salts & sugars and Other additional outcome/goals: 30-day Reassessments:: Not Met Education Gave educational materials for:: Signs & symptoms of hypoglycemia, Signs & symptoms of hyperglycemia, Relate diabetes to coronary artery disease and Healthy eating Nutrition - 60-Day Assessment Weight Mgt (Other Care) Height: 5 ft 7 in Weight:: 186 lb 8 oz BMI: 29.2 Core - 30-Day Assessment Visit Date of Eval: 04/21/23 Session #:: 3 Medication Compliance Preventative Medication(s):: Aspirin, LUKAS inhibitor, Statin/lipid and Beta kristopher H/O mental health issues: depression, anxiety, or addiction?: No Doesn?t believe in the benefits of treatment?: No Believes medications are unnecessary or harmful?: No Has a concern about medication side effects?: No Expresses concern over the cost of medications?: No Outcomes/Goals: Verbalizes medications,desired effect & common side effects @ DC, Pt self-reports following medication regimen, Keeps card in wallet w/medications listed by DC and Other additional outcome/goals: 30-day Reassessments:: Not Met Tobacco Use Tobacco Use: Non-smoker Hypertension Hypertension Diagnosis:: Hypertension ICD-10 I10 Resting Blood Pressure:: 152/74 [place] [employer] Hypertension Guidelines Peak Exercise Blood Pressure:: 170/80 Outcomes/Goals: Able to verbalize/achieve optimal blood pressure <130/80, Incorporates diet changes & exercise for blood pressure control by DC and Other additional outcomes/goals Interventions/plan: Instruct on optimal blood pressure, hypertension & medications, Instruct on effects of sodium, alcohol, stress, exercise &hypertension and Other additional plan/interventions 30 day Reassessments:: Not Met Reassessment Notes & Comments:: pt states he has white coat syndrome Tobacco Cessation Referral Smoking Cessation Referral:: No Individual Education/Counseling:: No Education Schedule Given:: Yes Psychosocial - 30-Day Assess VIsit Date of Eval: 04/21/23 Session #:: 3 History of previous Mental disease:: No Target Goals Target Goals Psychosocial - 60-Day Assess Target Goals Target Goals Psychosocial - 90-Day Assess Target Goals Target Goals Psychosocial - Final Assessmen Target Goals Target Goals Nutrition - 90-Day Assessment Weight Mgt (Other Care) Height: 5 ft 7 in Weight:: 186 lb 8 oz BMI: 29.2 Nutrition - Final Assessment Weight Mgt (Other Care) Height: 5 ft 7 in Weight:: 186 lb 8 oz BMI: 29.2
[2023-04-21 10:36] VITALS: BP 152/74
[2023-04-21 10:42] VITALS: BP 152/74; BMI 29.2
== END 2023-04-15 23:59 ==
LOC: CR 10:15
PROVIDERS: PCP Family Medicine; Referring Provider Internal Medicine Cardiovascular Disease; Visit Provider Internal Medicine Cardiovascular Disease
DX: I25.10 Atherosclerotic heart disease of native coronary artery without angina pectoris (principal); Z95.1 Presence of aortocoronary bypass graft
CPT/HCPCS: 93798

== ENCOUNTER 2023-04-06 07:11 | Day surgery (SDC) | payer MEDICARE, SELFPAY ==
[2023-03-22 14:50] VITALS: BMI 28.9
--- NOTE | 2023-04-06 | COLBX_PTH ---
PATIENT: PRASANNA INGRAM LOC: [facility] [place] U#:[id number] AGE/SX: 82/M ROOM: RE04/06/[address]: Dr. Oscar Rocha MD : 1940 BED: DIS: 04/06/2023 SPEC #: [id number] RECD: 04/06/23 11:30 STATUS: JOVANNA ARISTEO #: [id number] LISSY: 04/06/23 00:[address]: Oscar Rocha DEPT: SURGICAL PATHOLOGY RECD BY: Rajesh Espinal ENTERED: 04/06/23 11:30 SP TYPE: COLON BX OTHR DR: Dr. 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 AM: 04/07/23 COMMENT Correlation with clinical, endoscopic findings and appropriate follow up are necessary. Case has been reviewed in consultation with Dr. Strange who concurs with the above diagnosis. IDC:FAITH MICROSCOPIC DESCRIPTION Slides are reviewed. GROSS DESCRIPTION Received in fixative is one container labeled with the patient's name and designated proximal ascending colon mass biopsy. The specimen consists of multiple irregular fragments of light carvalho soft tissue that in aggregate measure 1.0 x 0.5 x 0.1 cm. The specimen is totally submitted in one cassette. / AM:anay 04/06/2023 TC:0 CPT: 81486
[2023-04-06 07:45] VITALS: BP 176/68; PULSE 66; RESP 16; TEMP 36.4; O2SAT 100; BMI 28.5
--- NOTE | 2023-04-06 07:53 | PCM.HP.BLA ---
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 Required: No Is patient in pain?: No Allergies Penicillins Allergy (Verified 02/24/23 08:33) Other Medications amlodipine 10 mg tablet 10 mg PO DAILY heart 01/27/16 [History Confirmed 02/24/23] carvedilol 25 mg tablet 1 tab PO BID heart 11/01/20 [History Confirmed 02/24/23] atorvastatin 80 mg tablet 80 mg PO DAILY HDL 11/06/20 [History Confirmed 02/24/23] ascorbic acid (vitamin C) 500 mg tablet (Vitamin C) 1,000 mg PO DAILY supplement 04/08/21 [History Confirmed 02/24/23] cholecalciferol (vitamin D3) 125 mcg (5,000 unit) tablet (Vitamin D3) 125 mcg PO DAILY supplement 04/08/21 [History Confirmed 02/24/23] magnesium 200 mg tablet 400 mg PO DAILY supplement 04/08/21 [History Confirmed 02/24/23] vitamin A 10,000 unit tablet 1,500 mcg PO DAILY supplement 04/08/21 [History Confirmed 02/24/23] vitamin B complex 1 tab PO DAILY supplement 04/08/21 [History Confirmed 02/24/23] vitamin E 400 unit tablet 400 unit PO DAILY supplement 04/08/21 [History Confirmed 02/24/23] aspirin 81 mg chewable tablet 81 mg PO DAILY@0800 [facility] 04/15/21 [History Confirmed 02/24/23] calcium carbonate 600 mg calcium (1,500 mg) tablet (Calcium) 600 mg PO DAILY 08/27/22 [History Confirmed 02/24/23] apixaban 5 mg tablet (Eliquis) mg PO 02/24/23 [History Confirmed 02/24/23] FOR[facility]LY [facility], [facility] Medical History AAA (abdominal aortic aneurysm) Abdominal muscle strain Alcohol use Arthritis Back pain Carotid stenosis, right Colon tumor Easy bruising Former smoker High cholesterol History of COVID-19 History of diverticulitis History of echocardiogram History of renal artery stenosis History of stent insertion of renal artery History of stress test HTN (hypertension) Hyperlipidemia Leg cramps Leg swelling Osteoarthritis Shortness of breath on exertion Sleep apnea Spinal stenosis Symptomatic stenosis of both carotid arteries TIA (transient ischemic attack) Wears dentures Wears glasses Surgical History (Updated 02/24/23 @ 08:32 by Nguyen Villanueva) H/O carotid endarterectomy History of carotid endarterectomy History of colonoscopy History of coronary artery bypass graft (~01/2023) History of stent insertion of renal artery Status post left knee replacement Family History Father Heart disease Myocardial infarction Cancer liverMother DiabetesBrother Diabetes Social History Smoking Status: Former smoker substance use type: does not use HPI HPI HPI: 82-year-old gentleman presents to discuss colon polyps and surgical treatment. His most recent colonoscopy was April 11, 2021. He had a tumor in the proximal ascending colon which was biopsied and was a villous adenoma. He had an additional cecal mass that was biopsied that was villous adenoma. The descending colon polyp that was removed was a tubulovillous adenoma. His most recent carotid duplex exam was November 06, 2022 demonstrating 50 to 69% stenosis of the right internal carotid but likely closer to the 50% range and postoperative changes of the left carotid bulb and proximal internal carotid artery with minimally elevated velocities consistent with 50 to 69% stenosis but likely less than that secondary to the postoperative changes. His most recent aortic duplex examination was November 06, 2022 demonstrating is a abdominal aorta measuring 2.83 x 3.11 cm at that time. At the patient's most recent office visit I had planned to perform a esophagogastroduodenoscopy and colonoscopy because of the patient's anemia. That had to be canceled at his most recent office appointment secondary to his acute coronary artery disease. We have been awaiting cardiology treatment and recommendations. The patient has been aware that I have been recommending a laparoscopic right colectomy now since the time of his colonoscopy. To me December 24, 2022 the patient required bypass surgery. He claims that he is on Eliquis now because he is instructed that he has clot in his aorta. We know that he has a small aortic aneurysm of the abdominal aorta. The patient states that sometime in March he is to see a vascular surgeon at [facility]. He states that he has a cardiology appointment locally with Dr. Toni Funk at on March 17, 2023 The patient is on iron supplementation. He notices dark stools. He denies any abdominal pain. He has chronic bilateral extremity leg swelling now left worse than the right because of the knee replacement on the left. My most recent office notes of December 11, 2022 demonstrate the following 82-year-old gentleman is referred for surgical consultation regarding acute blood loss anemia requiring transfusion. I initially assisted to this patient November 01, 2020 when he was referred for TIA. Also appeared to have a strain of the abdominal musculature. Because of bilateral carotid artery stenosis on December 04, 2020 I performed a left carotid enterectomy with bovine patch angioplasty. He was also found to have a small 3 cm asymptomatic abdominal aortic aneurysm. He had abdominal pain and a CT scan suggested thickening of the colon. On April 11, 2021 I performed a colonoscopy for him. An 18 mm polyp in the cecum was biopsied. There is a lesion in the ascending colon that was biopsied and tattooed. A lesion in the proximal descending colon. He was seen back in the office on April 17, 2021. Because of symptomatic right carotid stenosis treatment of his right carotid recommended and it was already discussed at that time that I recommended a laparoscopic right colectomy for this patient. Pathology demonstrated a villous adenoma of the cecum and fragments of villous adenoma of the proximal ascending colon and the descending colon polyp that was removed was a tubulovillous adenoma. The patient subsequently underwent a right carotid enterectomy on April 22, 2021. He was seen by my PA Cara Abdullahi on May 06, 2021 and her notes reflect that it was discussed with him that he needed a carotid duplex exam in 3 weeks and a follow-up office appointment July 2021 to schedule his colectomy. The next time that we are able to get him to come to the office was October 30, 2021. Patient had done well from his staged bilateral carotid enterectomy's. I recommended to him a laparoscopic right colectomy. The patient was well aware of my concerns regarding the polyps now due to several office discussions regarding it. We had the patient scheduled for surgery and the patient canceled the procedure. We again had the patient scheduled for an office appointment September 07, 2022 but he canceled it. We finally were able to get the patient back to the office on August 27, 2022. It only then became apparent that the patient elected to proceed with knee surgery rather than having his colon lesions addressed.. At his most recent appointment I again discussion regarding laparoscopic right colectomy for entertained but at that appointment he was found to be only 6 weeks out from his knee surgery was having significant pain and decreased mobility. Unfortunately at that moment in time he was felt not to be a good candidate proceed with surgery. It was strongly recommended to him that he have his left knee complications addressed and then again recontact me to proceed with a right colectomy. I only now have information that the patient became short of breath and had chest pressure on November 27, 2022 he was then hospitalized at [facility] from November 28 through November 30. He was noted to have a hemoglobin of 7 with hematocrit of 22. BUN 18 creatinine 1.1. Troponins were elevated. Discharge summary states acute myocardial infarction. The patient states that cardiology instructed him that he had heart strain due to the anemia. A cardiac catheterization was going to be done during his hospitalization but that was not. He currently is tentatively as an outpatient have a cardiac catheterization next week. Echocardiogram had an ejection fraction of 60 to 65%. Abdominal CT scan demonstrated a 3.2 cm infrarenal abdominal aortic aneurysm and as noted previously he has been known to have a 3 cm aortic aneurysm. There was persistent wall thickening of the ascending: Which has been a finding previously known about. He is currently on iron supplementation. He notes that his stools are dark. He denies any previous history of peptic ulcer disease ROS General General: No weight change, appetite, fatigue, colon cancer, breast cancer or weakness HEENT HEENT: No difficulty swallowing, eye injury, eye surgery, swollen glands or hoarseness Endo Endocrine: No thyroid disease, diabetes mellitus, thyroid cancer, Hair loss, heat intolerance or cold intolerance Skin Skin: No rash or changing moles Breast Breast: No left breast lump, right breast lump, nipple discharge, breast pain, abnormal mammogram, abnormal US or breast enlargement Musc Musculoskeletal: Yes back problems and arthritis; No rheumatoid arthritis, gout or joint pain Cardio Cardiovascular: Yes heart disease and high blood pressure; No murmur, pacemaker, atrial fibrillation, heart attack, heart stent, palpitations, shortness of breat with exertion or chest pain Psych Psychiatric: No depression, anxiety or hearing voices Resp Respiratory: Yes shortness of breath, Yes sleep apnea, No cough, No COPD, No asthma, No emphysema and No wheezing Gastro Gastrointestinal: No abdominal pain, No nausea or vomiting, No diarrhea, No constipation, No blood in stool, No acid reflux, No hemorrhoids, No ulcers, No gallbladder problem and Yes black,tarry stools Stuart Hematologic: Yes blood thinners, No blood disorders, No bleeding, Yes anemia and No blood clots Neuro Neurologic: No system reviewed and no additional complaints, except as documented, No as per HPI, No abnormal gait, No abnormal hearing, No abnormal movements, No abnormal speech, No behavioral changes, No burning sensations, No confusion, No convulsions, No disequilibrium, No dizziness, No localized weakness, No frequent falls, No headache(s), No lack of coordination, No loss of vision, No memory loss, No numbness, No other visual disturbances, No radicular pain, No restless legs, No sensory deficit, No syncope, No tingling, No tremor(s), No weakness and No other Exam Const General: cooperative, comfortable and no acute distress Nutritional Appearance: average body habitus Other: Mildly pale. No acute distress HENMT Head: normal to inspection Eyes General: appearance normal, both eyes and all related structures Neck Neck: normal visual inspection Chest Chest palpation & inspection: normal inspection of the chest Other: Median sternotomy appears to be solid and intact Resp Effort & Inspection: normal respiratory effort Auscultation: clear to auscultation bilaterally Cardio Rate: regular rate Rhythm: regular rhythm GI Inspection: normal to inspection Palpation: soft and no hepatosplenomegaly Other: I cannot detect any masses or tenderness in the right abdomen Musc Cervical Spine: normal cervical lordosis Skin General: no rashes or lesions noted Neuro General: patient alert, patient awake and patient oriented x3 Extrem General: no calf tenderness Other: 2+ left lower extremity swelling with 1+ right lower extremity swelling Psych Appearance: grossly normal Assessment and Plan Assessment and Plan (1) Anemia: Status: Acute Qualifiers: Anemia type: iron deficiency Iron deficiency anemia type: chronic blood loss Qualified Code(s): D50.0 - Iron deficiency anemia secondary to blood loss (chronic) (2) Personal history of colonic polyps: Status: Acute (3) AAA (abdominal aortic aneurysm): Status: Acute Qualifiers: Presence of rupture: without rupture Qualified Code(s): I71.4 - Abdominal aortic aneurysm, without rupture (4) H/O carotid endarterectomy: Status: Acute Plan I am strongly recommending the patient that we move on with treating this ascending: Tumor which is now been present for 2 years. We need to update his colonoscopy with possible biopsy or polypectomy. We then need to proceed with a laparoscopic right hemicolectomy. The colonoscopy will assess any recurrent disease in the left colon and will assess the growth of the polyps in the right colon. The patient is on Eliquis and he states it is because he has a thrombus in his aorta. He has upcoming vascular surgery and cardiology appointments. I am requesting preoperative review and clearance to proceed with surgical treatment and of course with surgical pretreatment off of his anticoagulants. We will schedule him for a colonoscopy for the third week of March. I will need to have him off his Eliquis for 2 days prior to that because of the likely need to perform biopsies at the time of his procedure. I have not yet scheduled him for the laparoscopic right hemicolectomy until I receive vascular surgery and cardiology evaluation. I appreciate the opportunity of assisting with the surgical care. Copy: Dr. Clemente Madrid and Dr. Toni Rocha M.D., F.A.C.S. Patient Instructions: 1.Discuss eliquis and heart health with and get clearance for colonoscopy and colectomy 2.Talk to vascular surgeon and tell them you have a right colectomy tumor that needs removed 3.Call our office after your vascular appointment and tell us the plan at [phone] 4.Wear your support hose per 's instructions. Coding Level of Care Code Off vis,est,level 3 Diagnoses Iron deficiency anemia due to chronic blood loss D50.0 Anemia type: iron deficiency Iron deficiency anemia type: chronic blood loss Personal history of colonic polyps Z86.010 Abdominal aortic aneurysm (AAA) without rupture I71.4 Presence of rupture: without rupture H/O carotid endarterectomy Z98.890 I have examined the patient and the H&P has been reviewed. There are no clinical changes since date of exam. Oscar Rocha M.D., F.A.C.S.
[2023-04-06] MEDS: Lactated Ringers 1,000 ML 15 ML IV (08:02)
[2023-04-06 08:50] VITALS: BP 176/68; PULSE 60; RESP 18; TEMP 36.5; O2SAT 97
--- NOTE | 2023-04-06 08:52 | OP.CCLET_ITS ---
04/06/2023 Clemente Madrid [address] [place] [address] Re : Colonoscopy procedure for Jair Woodward Dear Dr. Madrid This procedure was performed on Thursday, April 06, 2023. My impressions and recommendations are as follows: Impressions : - Non-thrombosed external hemorrhoids, non-thrombosed internal hemorrhoids and internal hemorrhoids that prolapse with straining, but spontaneously regress to the resting position (Grade II) found on digital rectal exam. 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 Biopsied. - Diverticulosis in the sigmoid colon. - An area in the proximal ascending colon was tattooed. Recommendations : - Discharge patient to home. - Resume previous diet. - Continue present medications. - Repeat colonoscopy in 1 year for surveillance. - Return to my office in 1 week. Plan for laparoscopic right colectomy. My findings are described in the full procedure note, which is enclosed. If I can be of further assistance, please feel free to contact me at Doctor phone number(s): Work: . Sincerely, Oscar Rocha MD 04/06/2023 8:51:44 AM This report has been signed electronically.
--- NOTE | 2023-04-06 08:52 | OP.COLON_ITS ---
Patient Name: Jair Woodward Procedure Date: 04/06/2023 8:23 AM Date of : 1940 Age: 82 Procedure: Colonoscopy Indications: High risk colon cancer surveillance: Personal history of colonic polyps Providers: Oscar Rocha MD Referring MD: Clemente Madrid Medicines: See the Anesthesia note for documentation of the administered medications Patient Profile: Last Colonoscopy: within the past 3 years. Complications: No immediate complications. Procedure: Pre-Anesthesia Assessment: - Prior to the procedure, a History and Physical was performed, and patient medications and allergies were reviewed. The patient's tolerance of previous anesthesia was also reviewed. The risks and benefits of the procedure and the sedation options and risks were discussed with the patient. All questions were answered, and informed consent was obtained. Prior Anticoagulants: The patient has taken Eliquis (apixaban), last dose was 2 days prior to procedure. ASA Grade Assessment: III - A patient with severe systemic disease. After reviewing the risks and benefits, the patient was deemed in satisfactory condition to undergo the procedure. After I obtained informed consent, the scope was passed under direct vision. Throughout the procedure, the patient's blood pressure, pulse, and oxygen saturations were monitored continuously. The colonoscope was introduced through the anus and advanced to the cecum, identified by the ileocecal valve. The colonoscopy was performed without difficulty. The patient tolerated the procedure well. The quality of the bowel preparation was good. The ileocecal valve was photographed. Scope In: 8:30:02 AM Scope Withdrawal Time 0 hours 7 minutes 46 seconds Scope Out: 8:43:30 AM Total Procedure Duration Time 0 hours 13 minutes 28 seconds Findings: The digital rectal exam findings include non-thrombosed external hemorrhoids, non-thrombosed internal hemorrhoids and internal hemorrhoids that prolapse with straining, but spontaneously regress to the resting position (Grade II). A frond-like/villous non-obstructing large mass was found in the proximal ascending colon. The mass was non-circumferential. No bleeding was present. This was biopsied with a cold forceps for histology. Multiple diverticula were found in the sigmoid colon. An area in the proximal ascending colon was tattooed with an injection of 5 mL of Ivana ink. Impression: - Non-thrombosed external hemorrhoids, non-thrombosed internal hemorrhoids and internal hemorrhoids that prolapse with straining, but spontaneously regress to the resting position (Grade II) found on digital rectal exam. 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 Biopsied. - Diverticulosis in the sigmoid colon. - An area in the proximal ascending colon was tattooed. Recommendation: - Discharge patient to home. - Resume previous diet. - Continue present medications. - Repeat colonoscopy in 1 year for surveillance. - Return to my office in 1 week. Plan for laparoscopic right colectomy. Procedure Code(s): --- Professional --- 97023, Colonoscopy, flexible; with biopsy, single or multiple 54449, Colonoscopy, flexible; with directed submucosal injection(s), any substance Diagnosis Code(s): --- Professional --- Z86.010, Personal history of colonic polyps K64.1, Second degree hemorrhoids K64.4, Residual hemorrhoidal skin tags D49.0, Neoplasm of unspecified behavior of digestive system K57.30, Diverticulosis of large intestine without perforation or abscess without bleeding CPT copyright 2021 [employer]. All rights reserved. The codes documented in this report are preliminary and upon business analytics specialist review may be revised to meet current compliance requirements. Oscar Rocha MD 04/06/2023 8:51:44 AM This report has been signed electronically. Number of Addenda: 0 Note Initiated On: 04/06/2023 8:23 AM
[2023-04-06 08:55] VITALS: BP 106/47; BP 176/68; PULSE 61; RESP 18; O2SAT 98
[2023-04-06 09:00] VITALS: BP 105/57; BP 176/68; PULSE 59; RESP 18; O2SAT 97
[2023-04-06 09:05] VITALS: BP 121/50; BP 176/68; PULSE 61; RESP 18; TEMP 36.4; O2SAT 97
[2023-04-06 09:23] VITALS: BP 176/68
== END 2023-04-06 09:45 | disposition home or self-care (01) ==
LOC: SDC 07:11 → AC 07:12
PROVIDERS: PCP Family Medicine; Referring Provider Family Medicine; Visit Provider Surgery
PROC: 0DJD8ZZ Inspection of Lower Intestinal Tract, Via Natural or Artificial Opening Endoscopic (ICD-10-PCS; CPT 45378; principal; 2023-04-06 08:25)
DX: Z12.11 Encounter for screening for malignant neoplasm of colon (principal); I71.40 Abdominal aortic aneurysm, without rupture, unspecified; K64.8 Other hemorrhoids; Z86.16 Personal history of COVID-19; I25.10 Atherosclerotic heart disease of native coronary artery without angina pectoris; I65.21 Occlusion and stenosis of right carotid artery; K57.30 Diverticulosis of large intestine without perforation or abscess without bleeding; Z87.891 Personal history of nicotine dependence; D50.0 Iron deficiency anemia secondary to blood loss (chronic); K64.4 Residual hemorrhoidal skin tags; Z96.652 Presence of left artificial knee joint; I10 Essential (primary) hypertension; Z86.010 Personal history of colon polyps; E78.5 Hyperlipidemia, unspecified; D01.0 Carcinoma in situ of colon
CPT/HCPCS: 45381; 45380; 88305; J7120; A4648

== ENCOUNTER → 2023-04-09 | Outpatient (CLI) | payer MEDICARE, SELFPAY ==
[2023-03-22 14:50] VITALS: BMI 28.9
[2023-04-09 11:59] LABS: Absolute Lymphocyte Count 1.39 X10^3/uL (0.83-4.51); Absolute Neutrophil Count 3.1 X10^3/uL (2.0-7.7); Basophil# 0.05 X10^3/uL; Basophil% 0.9 % (0-1); Eosinophil# 0.29 X10^3/uL; Eosinophils% 5.3 % (0-5); Hemoglobin 9.8 g/dL (13.0-16.5); Lymphocyte # 1.39 X10^3/ul (0.83-4.51); Lymphocyte % 25.6 % (19-41); Mean Corp Hgb Conc 30.6 g/dL (32-36); Mean Corpuscular Hgb 28.4 pg (27.0-32.0); Mean Corpuscular Volume 92.8 fL (80-94); Mean Platelet Vol. 11.5 fl (6.2-12.0); Monocyte# 0.56 X10^3/uL; Monocyte% 10.3 % (0-10); NRBC Flagged by Analyzer 0 % (0-5); Neutrophil # 3.12 X10^3/uL (2.7-7.7); Neutrophil % 57.5 % (47-70); Platelet Count 231 K/mm3 (150-450); RBC Distribution Width CV 16.1 % (11.6-14.6); RBC Distribution Width SD 54.7 fl (35.1-43.9); Red Blood Count 3.45 M/mm3 (4.6-6.2); White Blood Count 5.4 K/mm3 (4.4-11.0)
[2023-04-09 12:27] LABS: ALB/GLOB Ratio 1.2 RATIO (0.9-2.4); AST(SGOT) 21 U/L (15-37); Alanine Aminotransfer ALT/SGPT 24 U/L (16-61); Albumin, Serum 3.7 g/dL (3.2-5.0); Alkaline Phosphatase 75 U/L (45-117); Anion Gap 2 (5-15); BUN 18 mg/dL (7-18); BUN/Creat Ratio 16.8 RATIO (10-20); Calcium,Total 8.8 mg/dL (8.5-10.1); Chloride 110 mmol/L (98-107); Cholesterol 136 mg/dL (200); Creatinine, Serum 1.07 mg/dL (0.70-1.30); EST Glomerular Filtration Rate 70 mL/min (>60); Est Glom Filt Rate - Afr Amer 85 mL/min (>60); Globulin 3.1 g/dL (2.2-4.2); Glucose 110 mg/dL (74-106); High Density Lipoprotein 48 mg/dL; Iron 280 ug/dL (65-175); Potassium 4.1 mmol/L (3.5-5.1); Protein, Total 6.8 g/dL (6.4-8.2); Sodium Level 141 mmol/L (136-145); Triglycerides 75 mg/dL; Very Low Density Lipoprotein 15 mg/dL (5-40)
[2023-04-10 04:07] LABS: Carcinoembryonic Antigen 6.4 ng/mL (0.0-4.7)
== END | disposition home or self-care (01) ==
LOC: MTLAB 09:34
PROVIDERS: Surgery; PCP Family Medicine; Referring Provider Nurse Practitioner Family; Visit Provider Nurse Practitioner Family
DX: I10 Essential (primary) hypertension (principal); E78.5 Hyperlipidemia, unspecified; D50.9 Iron deficiency anemia, unspecified; D09.9 Carcinoma in situ, unspecified
CPT/HCPCS: 36415; 80053; 80061; 82378; 83540; 85025

== ENCOUNTER 2023-04-14 20:10 | Emergency (ER) | payer MEDICARE, SELFPAY ==
[2023-03-22 14:50] VITALS: BMI 28.9
[2023-04-14 20:10] VITALS: BP 182/70; PULSE 114; RESP 18; TEMP 36.7; O2SAT 100; BMI 29.1
--- NOTE | 2023-04-14 20:38 | EX.ED.DYSGE1 ---
HPI History of Present Illness Chief Complaint: Palpitations Detail of Chief Complaint: Palpitations Informant: patient Narrative Narrative: Patient presents to the emergency department with complaint of palpitations. Patient states that it started last evening where he felt like his heart was racing and that lasted about 15 minutes and then resolved after some deep breathing. Patient did not check to see how fast his heart was racing. Patient states this afternoon again he started feeling like his heart was racing and he could feel it in his ears. Patient states that he felt that every third beat was different. Patient is concerned because he had a two-vessel CABG in December of this year. Patient also just diagnosed with colon cancer and he is can have to have it resected so he was not sure if this was just his nerves. Patient denies chest pain or shortness of breath. 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 Alcohol use Anemia Arthritis Back pain Cancer Cardiology follow-up encounter Carotid stenosis, right Colon polyps Colon tumor Colonic mass Coronary atherosclerosis Diastolic heart failure Diverticulosis Easy bruising Former smoker High cholesterol History of COVID-19 History of diverticulitis History of echocardiogram History of renal artery stenosis History of stent insertion of renal artery History of stress test HTN (hypertension) Hyperlipidemia Hypertension Hypertensive urgency Impaired fasting glucose Left carpal tunnel syndrome Leg cramps Leg swelling Low iron Osteoarthritis Personal history of colonic polyps Pes anserinus bursitis Presence of left atrial appendage closure device Shortness of breath on exertion Sleep apnea Spinal stenosis Spinal stenosis of lumbar region Stenosis of left internal carotid artery Symptomatic stenosis of both carotid arteries Tachycardia Thrombosis of thoracic aorta TIA (transient ischemic attack) Wears dentures Wears glasses Home Medications atorvastatin 80 mg tablet 80 mg PO DAILY HDL 11/06/20 [History Last Taken 12/03/20] aspirin 81 mg chewable tablet 81 mg PO DAILY@0800 heart [facility] 04/15/21 [History Last Taken Unknown] ascorbate calcium (vitamin C) 500 mg tablet 1 g PO DAILY 03/09/23 [History Last Taken Unknown] calcium carbonate 600 mg calcium (1,500 mg) tablet 600 mg PO BID 03/09/23 [History Last Taken Unknown] cholecalciferol (vitamin D3) 125 mcg (5,000 unit) capsule 125 mcg PO DAILY 03/09/23 [History Last Taken Unknown] melatonin 10 mg tablet 10 mg PO HS 03/09/23 [History Last Taken Unknown] ferrous gluconate 324 mg (38 mg iron) tablet 324 mg PO DAILY 03/16/23 [History Last Taken Unknown] metoprolol tartrate 50 mg tablet 50 mg PO BID 03/16/23 [History Last Taken 04/06/23 06:00] amlodipine 10 mg tablet 10 mg PO DAILY #90 tabs 03/17/23 [Rx Last Taken 04/06/23 06:00] metronidazole 500 mg tablet 500 mg PO .COMPLEX #6 tabs 04/07/23 [Rx Last Taken Unknown] neomycin 500 mg tablet 500 mg PO .COMPLEX pre-op antibiotics #6 tabs 04/07/23 [Rx Last Taken Unknown] Allergy/AdvReac Type Severity Reaction Status Date / Time Penicillins Allergy Other Verified 04/14/23 20:13 Family History Father Heart disease Myocardial infarction 65 Cancer liver Mother Diabetes Brother Diabetes Surgical History H/O carotid endarterectomy H/O carotid endarterectomy History of angioplasty History of cardiac catheterization History of carotid endarterectomy History of colonoscopy History of coronary artery bypass graft (~01/2023) History of heart surgery History of stent insertion of renal artery Status post left knee replacement Social History Smoking Status: Former smoker alcohol intake: former substance use type: does not use caffeine: Yes ROS ROS ED Review of Systems ROS Unobtainable: other Constitutional Constitutional ED: Reports lethargy; Denies chills, fever(s), sweats or weight loss Eyes Eyes: Denies blurry vision, change in vision or diplopia ENT ENT ED: Denies rhinorrhea or sore throat Cardiovascular Cardiovascular: Reports palpitations and racing heartbeat; Denies chest pain or orthopnea Respiratory/Chest Respiratory/Chest: Denies cough, dyspnea, dyspnea on exertion, orthopnea or sputum Gastrointestinal Gastrointestinal: Denies abdominal pain, diarrhea, nausea or vomiting Genitourinary Genitourinary ED: Denies dysuria, hematuria or urinary frequency Musculoskeletal Musculoskeletal: Denies arthralgias, back pain, myalgias or neck pain Integumentary Denies abscess, Abrasions or rash Neurologic Neurologic: Denies headache(s) or weakness Psychiatric Psychiatric: Denies anxiety, depression or suicidal thoughts Endocrine Endocrinology: Denies polydipsia, polyphagia or polyuria Hematologic/Lymphatic Hematologic/Lymphatic: Denies easy bleeding, easy bruising or lymphadenopathy Allergic/Immunologic Allergic/Immunologic ED: Denies mouth swelling, tongue swelling or urticaria EXAM Physical Exam Const Vital Signs: 04/14/23 20:10 04/14/23 21:10 Temperature 98.0 F Temperature Source Temporal Pulse Rate 114 H 75 Respiratory Rate 18 16 Blood Pressure 182/70 H 131/62 H Blood Pressure Mean 107 85 Pulse Ox 100 100 Oxygen Delivery Method Room Air Room Air Positive well nourished and well developed General Appearance ED: well developed and NAD HEENT Reports TM's clear and moist mucous membranes normocephalic and atraumatic; Negative for trauma or tenderness Tympanic Membrane ED: Yes TM's clear Eyes PERRL and EOMs intact bilaterally General Eye ED: Negative for pale conjunctiva or scleral icterus Neck no lymphadenopathy, supple and no JVD General: Negative for tenderness Chest Wall inspection of chest normal and palpation of chest normal Chest: Negative for tenderness Resp normal respiratory effort and clear to auscultation bilaterally Effort and Inspection: Negative for respiratory distress or pain with movement Auscultation: Negative for rhonchi, wheezes or diminished lung sounds Cardio regular rate, regular rhythm, S1 normal heart sound, S2 normal heart sound and no murmurs Peripheral Pulses: pulses 2+ throughout GI normal to inspection, nondistended, normoactive bowel sounds, soft to palpation, non-tender, non-distended and no masses Back/Spine no CVA tenderness and no thoracic nor lumbar tenderness Extremity normal to inspection General Extremety ED: Negative for edema General Extremity: Negative for edema Neuro oriented x3, CN's II-XII intact bilaterally, no sensory deficits noted and gait normal Sensorium / Orientation: awake, alert, oriented to person, oriented to place and oriented to time Motor Exam: strength 5/5 throughout and strength abnormal Psych mental status grossly normal Skin no rashes or lesions noted and no wounds MDM MDM MDM Narrative Medical decision making narrative: Patient presents with palpitations that started yesterday. Patient's been under a lot of stress and that he was recently diagnosed with colon cancer and has a surgery coming up. Patient states he is having a hard time getting it out of his mind and it is stressing him. Patient's tachycardia today did not go over 90. In the differential would be A-fib or sinus tachycardia or PACs versus PVCs. IV line established. EKG obtained arrival shows sinus rhythm with a ventricular rate of 89 bpm with no acute ST segment changes. CBC with differential showed a white count of 8.3 with hemoglobin of 9.9 and platelet count of 286. Chemistries unremarkable. BUN was 18 and creatinine 1.37. Troponin was normal at 7. 1 view chest x-ray showed no acute disease process on my interpretation. While speaking to the patient on the monitor I did note that he had frequent PACs. I did offer to place a Holter monitor however he states that about 8 weeks ago he wore a Holter monitor and turned it and never heard anything back as they were evaluating for A-fib. Patient does not want to wear a Holter monitor again. He currently feels well. He has not had any chest pain or exertional dyspnea as he was able to cut his grass without difficulty. Patient advised to return if chest pain, dyspnea, persistent tachycardia, or condition should worsen anyway. Lab Data Labs: Laboratory Results - last 24 hr 04/14/23 20:20 WBC 8.3 RBC 3.49 L Hgb 9.9 L Hct 32.7 L MCV 93.7 MCH 28.4 MCHC 30.3 L RDW Std Deviation 58.7 H RDW Coeff of Claudia 17.4 H Plt Count 285 MPV 10.9 Immature Gran % (Auto) 0.200 Neut % (Auto) 57.9 Lymph % (Auto) 28.4 [place] % (Auto) 10.2 H Eos % (Auto) 2.6 Baso % (Auto) 0.7 Absolute Neuts (auto) 4.8 Absolute Lymphs (auto) 2.37 Nucleated RBC % 0 Sodium 141 Potassium 3.8 Chloride 109 H Carbon Dioxide 26.0 Anion Gap 6 BUN 18 Creatinine 1.37 H Estim Creat Clear Calc 38.87 Est GFR (MDRD) Af Amer 64 Est GFR (MDRD) Non-Af 53 L BUN/Creatinine Ratio 13.1 Glucose 119 H Calcium 8.8 Troponin I High Sens 7 Radiography Chest X-Ray - ED: 1 View Diagnostic Testin view chest x-ray obtained interpreted by myself as no evidence of infiltrate or pneumothorax or acute disease process. There are sternotomy wires from prior CABG. Official report from radiology pending. EKG Initial EKG: Attestation: I personally reviewed and interpreted this EKG as follows: Comments: Sinus rhythm with a rate of 89 bpm with no acute ST segment changes Discharge Plan Triage Chief Complaint: Palpitations ED Provider: Yodit Lemus Dx/Rx/DC Orders Clinical Impression: Heart palpitations, Tachycardia Instructions: ED Palpitations Prescriptions: No Action atorvastatin 80 mg tablet 80 mg PO DAILY calcium carbonate 600 mg calcium (1,500 mg) tablet 600 mg PO BID ascorbate calcium (vitamin C) 500 mg tablet 1 g PO DAILY cholecalciferol (vitamin D3) 125 mcg (5,000 unit) capsule 125 mcg PO DAILY melatonin 10 mg tablet 10 mg PO HS ferrous gluconate 324 mg (38 mg iron) tablet 324 mg PO DAILY Patient Comments: take 1 tablet by mouth once daily metoprolol tartrate 50 mg tablet 50 mg PO BID Patient Comments: take 1 tablet by mouth twice a day amlodipine 10 mg tablet 10 mg PO DAILY Qty: 90 3RF aspirin 81 MG tablet,chewable 81 mg PO DAILY@0800 Patient Comments: will stop taking 2 days before surgery metronidazole 500 mg tablet 500 mg PO .COMPLEX Qty: 6 0RF Rx Instructions: 500 mg PO Take 2 (two) tablets at 1300, 1500, 2300 neomycin 500 mg tablet 500 mg PO .COMPLEX Qty: 6 0RF Rx Instructions: Take two (2) 500 mg tablets PO at 1300, 1500, 2300 Primary Care Provider: Page Fernandez Referrals: Toni Funk MD [Med Staff - Active Staff] - 3-5 Days Clemente Madrid DO [Med Staff - Medical Staff Services Coordinator] - Disposition Disposition: Home, Self Care Discharge Date/Time: 04/14/23 22:03
[2023-04-14 20:48] LABS: Absolute Lymphocyte Count 2.37 X10^3/uL (0.83-4.51); Absolute Neutrophil Count 4.8 X10^3/uL (2.0-7.7); Basophil# 0.06 X10^3/uL; Basophil% 0.7 % (0-1); Eosinophil# 0.22 X10^3/uL; Eosinophils% 2.6 % (0-5); Hematocrit 32.7 % (40-54); Hemoglobin 9.9 g/dL (13.0-16.5); Lymphocyte # 2.37 X10^3/ul (0.83-4.51); Lymphocyte % 28.4 % (19-41); Mean Corp Hgb Conc 30.3 g/dL (32-36); Mean Corpuscular Hgb 28.4 pg (27.0-32.0); Mean Corpuscular Volume 93.7 fL (80-94); Mean Platelet Vol. 10.9 fl (6.2-12.0); Monocyte# 0.85 X10^3/uL; Monocyte% 10.2 % (0-10); NRBC Flagged by Analyzer 0 % (0-5); Neutrophil # 4.82 X10^3/uL (2.7-7.7); Neutrophil % 57.9 % (47-70); Platelet Count 285 K/mm3 (150-450); RBC Distribution Width CV 17.4 % (11.6-14.6); RBC Distribution Width SD 58.7 fl (35.1-43.9); Red Blood Count 3.49 M/mm3 (4.6-6.2); White Blood Count 8.3 K/mm3 (4.4-11.0)
--- NOTE | 2023-04-14 21:00 | RAD_ITS ---
EXAM: XR CHEST, 1 VIEW CLINICAL INDICATION: palpitations TECHNIQUE: Frontal view of the chest. COMPARISON: 11/01/2020 FINDINGS: LUNGS AND PLEURAL SPACES: No significant abnormality. No consolidation or edema. No pneumothorax. No effusion. HEART: Status post CABG and left atrial appendage occlusion. MEDIASTINUM: Central airways and mediastinal contour are unremarkable. BONES/JOINTS: Median sternotomy. Degenerative changes in the spine and shoulders. SOFT TISSUES: No significant abnormality. VASCULATURE: Atherosclerosis. RAD/Chest 1 View (Portable) IMPRESSION: Status post CABG and left atrial appendage occlusion. No definite acute findings. Electronically Signed: Sudeep Gregory DO at 21:16 EDT ,
[2023-04-14 21:06] LABS: Anion Gap 6 (5-15); BUN 18 mg/dL (7-18); BUN/Creat Ratio 13.1 RATIO (10-20); Calcium,Total 8.8 mg/dL (8.5-10.1); Chloride 109 mmol/L (98-107); Creatinine, Serum 1.37 mg/dL (0.70-1.30); EST Glomerular Filtration Rate 53 mL/min (>60); Est Glom Filt Rate - Afr Amer 64 mL/min (>60); Estimated Creatinine Clearance 38.87 ml/min; Glucose 119 mg/dL (74-106); Potassium 3.8 mmol/L (3.5-5.1); Sodium Level 141 mmol/L (136-145); Troponin-I HS 7 pg/mL (3.0-78.0)
[2023-04-14] MEDS: 0.9% Normal Saline 1,000 ML 150 ML IV (21:09)
[2023-04-14 21:10] VITALS: BP 131/62; PULSE 75; RESP 16; O2SAT 100
== END 2023-04-14 22:03 | disposition home or self-care (01) ==
PROVIDERS: Emergency Provider Emergency Medicine; PCP Nurse Practitioner Family; Visit Provider Emergency Medicine
DX: R00.2 Palpitations (principal); I11.0 Hypertensive heart disease with heart failure; I50.32 Chronic diastolic (congestive) heart failure; Z87.891 Personal history of nicotine dependence; E78.00 Pure hypercholesterolemia, unspecified; I25.10 Atherosclerotic heart disease of native coronary artery without angina pectoris; Z86.73 Personal history of transient ischemic attack (TIA), and cerebral infarction without residual deficits; Z79.899 Other long term (current) drug therapy; Z79.82 Long term (current) use of aspirin; Z96.652 Presence of left artificial knee joint; Z95.1 Presence of aortocoronary bypass graft; Z85.038 Personal history of other malignant neoplasm of large intestine; R00.0 Tachycardia, unspecified
CPT/HCPCS: 71045; 80048; 84484; 85025; 93005; 96360; 99284; J7030; A4216

== ENCOUNTER → 2023-04-20 | Outpatient (CLI) | payer MEDICARE, SELFPAY ==
[2023-03-22 14:50] VITALS: BMI 28.9
--- NOTE | 2023-04-20 13:00 | CT_ITS ---
STUDY: CT ABDOMEN AND PELVIS WITH CONTRAST REASON FOR EXAM: Male, 82 years old. Recent diagnosis of rectal cancer. RADIATION DOSAGE (If Supplied By Facility): CTDIvol = ( 13.08 ) mGy, DLP = ( 1560.43 ) mGycm TECHNIQUE: Transaxial images were obtained from the dome of the diaphragm to the symphysis pubis without oral contrast. IV 100mL Isovue-300 was administered. Sagittal and coronal images were reconstructed. Individualized dose optimization techniques were used for this CT. COMPARISON: Comparison is made with prior study November 20, 2020. FINDINGS: The visualized lung bases are unremarkable. Prior CABG. Coronary artery calcification. There is decreased attenuation of the liver consistent with steatosis. Multiple small low density nodules are seen throughout the liver. There is a new 1.8 cm x 1.6 cm hypodense nodule in the central portion of the right lobe of the liver. A similar appearing nodule is seen in the lower aspect of the right lobe measuring 1 cm. There is also evidence of a hypodense nodule in the medial inferior aspect of the right lower liver measuring 1.7 cm. These may represent metastatic deposits superimposed on hepatic cysts. Correlation with ultrasound is recommended for further evaluation. Normal gallbladder and extrahepatic biliary system. Normal spleen. Normal pancreas. Normal bilateral adrenal glands. Normal right kidney. Left renal cyst. This measures 5.7 cm x 6.4 cm. This is essentially unchanged. Normal visualized stomach. Normal small intestine. There are multiple colonic diverticula consistent with diverticulosis. Circumferential thickening of the rectum suggestive of patient''s history of rectal carcinoma. Is also evidence of a apple core lesion in the cecum. This measures 4 cm x 6 cm. There is diffuse atherosclerotic calcification of the abdominal aorta and its major visceral branches. Dilatation of the distal abdominal aorta with a transverse dimension of 2.8 cm. Normal inferior vena cava. Normal retroperitoneum. Normal urinary bladder. Normal abdominal wall. There are degenerative changes of the visualized lumbar spine. 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 CT/Abdomen/Pelvis WITH Contrast IMPRESSION: Cysts are seen in the liver as well as hypodense nodules which are new as compared to prior study. Metastatic deposit should BE ruled out. Correlation with ultrasound is recommended. Stable left renal cyst. Circumferential wall thickening of the rectum. Apple core lesion is seen in the region of the cecum. A neoplastic process should be ruled out. Electronically Signed: Jorje Wilkes MD at 15:22 EDT ,
== END | disposition home or self-care (01) ==
PROVIDERS: PCP Nurse Practitioner Family; Referring Provider Surgery; Visit Provider Surgery
DX: C18.9 Malignant neoplasm of colon, unspecified (principal)
CPT/HCPCS: 74177; Q9967

== ENCOUNTER → 2023-04-21 | Outpatient (CLI) | payer MEDICARE, SELFPAY ==
[2023-03-22 14:50] VITALS: BMI 28.9
--- NOTE | 2023-04-21 07:17 | US_ITS ---
STUDY: ABDOMINAL ULTRASOUND - RIGHT UPPER QUADRANT REASON FOR VISIT: Male, [address] scan TECHNIQUE: Ultrasound evaluation of the right upper quadrant was performed with real-time and static mcintosh-scale imaging. TECHNICAL QUALITY: Adequate. COMPARISON: CT scan from yesterday.. FINDINGS: Liver: The liver measures 13.5 cm. There is increased echogenicity consistent with fatty infiltration. The bile ducts are within normal limits. There is hepatic color flow. The direction of portal flow is hepatopetal. Ultrasound confirms that the vast majority of numerous low-attenuation lesions seen on CT a relatively simple cysts. However, there are 3 lesions that are not clearly cysts, masses. These measure as much as 2 cm. Patient will therefore need further evaluation such as follow-up contrast CT or contrast MRI. Gallbladder: There is a contracted gallbladder. The gallbladder wall measures 2 mm. There is a negative sonographic Roche''s sign. There is no pericholecystic fluid. There are no gallstones. Common Bile Duct (C.B.D.): The common bile duct measures 3.1 mm. Pancreas: Normal size of the head, body and tail of the pancreas. There is normal echogenicity of the pancreas. There is no demonstrated pancreatic mass or cyst. Right Kidney: Normal size of the right kidney. The right kidney measures 9.8 x 5.1 x 6.3 cm. Normal renal cortex. The right cortex measures 1.7 cm. There is no demonstrated renal mass or cyst. There is no right hydronephrosis. US/Liver IMPRESSION: As seen on CT scan, numerous small liver cysts. However 2 or 3 lesions may be solid. Recommend further evaluation as above. Electronically Signed: Erick Corbett MD at 22:23 EDT ,
== END | disposition home or self-care (01) ==
LOC: US 07:16
PROVIDERS: PCP Nurse Practitioner Family; Referring Provider Surgery; Visit Provider Surgery
DX: R93.2 Abnormal findings on diagnostic imaging of liver and biliary tract (principal)
CPT/HCPCS: 76705

== ENCOUNTER 2023-04-26 06:59 | Inpatient (IN) | payer MEDICARE, SELFPAY ==
[2023-03-22 14:50] VITALS: BMI 28.9
[2023-04-20 13:38] LABS: Magnesium 2.3 mg/dL (1.6-2.6); Prothrombin Time (Protime)PT. 13.3 SECONDS (11.7-14.9)
[2023-04-20 13:39] LABS: Partial Thromboplast Time 31.8 Seconds (24.1-36.2)
[2023-04-21 10:42] VITALS: BMI 29.2
[2023-04-26] VITALS (13 sets, daily range): BP systolic 109–158; BP diastolic 46–62; PULSE 59–82; RESP 13–20; TEMP 36.3–37.7; O2SAT 96–100; BMI 28.5
--- NOTE | 2023-04-26 | IMM_PTH ---
PATIENT: PRASANNA INGRAM LOC: [facility] U#:[id number] AGE/SX: 82/M ROOM: GA315 RE04/26/[address]: Dr. 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 Localization is made via biotin free immunoperoxidase method. Appropriate controls are performed and reacted as expected. Results on target cell population are indicated in the following table: RESULTS: ANTIBODY / CLONE RESULT Block B6 Her-2neu (CB11) negative (0) MOC-31 (4561) positive MLH-1 (M1) positive, focal MSH2 (25D12) positive, focal MSH6 (44) positive, focal PMS2 ([id number]) positive Ki-67 (30-9) positive, moderate, ~50-60% P53 (DO-7) positive, missense mutation pattern Block B8 Her-2neu (CB11) negative (0) MOC-31 (4561) positive MLH-1 (M1) positive MSH2 (25D12) positive, focal MSH6 (44) positive PMS2 ([id number]) positive Ki-67 (30-9) positive, high (~80%) P53 (DO-7) positive, missense mutation pattern These tests were developed and their performance characteristics determined by [facility]. They may not have been cleared or approved by the [place] Food and Drug Administration. The FDA has determined that such clearance or approval is not necessary. The above immunohistochemical/dualISH markers are ordered and reviewed by the Pathologist. INTERPRETATION: B. Right colon, hemicolectomy: Cecal mass, invasive adenocarcinoma. Result of Microsatellite Instability Study: Negative (no loss of mismatch protein; no microsatellite instability detected). Ascending colon mass, invasive adenocarcinoma. Result of Microsatellite Instability Study: Negative (no loss of mismatch protein; no microsatellite instability detected). SJ:anay 05/03/2023
[2023-04-26] MEDS: Acetaminophen 500 MG Tablet 1000 MG PO ×3 (07:51→21:56)
[2023-04-26] MEDS: Gabapentin 600 MG Tablet PO (07:51)
[2023-04-26 08:13] LABS: Bedside Glucose 213 mg/dL (74-106)
[2023-04-26] MEDS: Lactated Ringers 1,000 ML 40 ML IV (08:15)
[2023-04-26] MEDS: Magnesium 1 GM over 15 mins IV (08:16)
[2023-04-26] MEDS: Insulin Lispro 100 UNIT/ML INSULN.PEN SC (08:21)
--- NOTE | 2023-04-26 08:21 | PCM.HP.BLA ---
History and Physical Date of Admission: 04/26/23 Chief Complaint: discuss colectomy Is patient in pain?: No Allergies Penicillins Allergy (Verified 04/12/23 15:10) Other Medications atorvastatin 80 mg tablet 80 mg PO DAILY HDL 11/06/20 [History Confirmed 04/12/23] aspirin 81 mg chewable tablet 81 mg PO DAILY@0800 [facility] 04/15/21 [History Confirmed 04/12/23] ascorbate calcium (vitamin C) 500 mg tablet 1 g PO DAILY 03/09/23 [History Confirmed 04/12/23] calcium carbonate 600 mg calcium (1,500 mg) tablet 600 mg PO BID 03/09/23 [History Confirmed 04/12/23] cholecalciferol (vitamin D3) 125 mcg (5,000 unit) capsule 125 mcg PO DAILY 03/09/23 [History Confirmed 04/12/23] melatonin 10 mg tablet 10 mg PO HS 03/09/23 [History Confirmed 04/12/23] ferrous gluconate 324 mg (38 mg iron) tablet 324 mg PO DAILY 03/16/23 [History Confirmed 04/12/23] metoprolol tartrate 50 mg tablet 50 mg PO BID 03/16/23 [History Confirmed 04/12/23] amlodipine 10 mg tablet 10 mg PO DAILY #90 tabs 03/17/23 [Rx Confirmed 04/12/23] metronidazole 500 mg tablet 500 mg PO .COMPLEX #6 tabs 04/07/23 [Rx Confirmed 04/12/23] neomycin 500 mg tablet 500 mg PO .COMPLEX pre-op antibiotics #6 tabs 04/07/23 [Rx Confirmed 04/12/23] [facility] Medical History AAA (abdominal aortic aneurysm) Abdominal muscle strain Abnormal abdominal CT scan Acute sore throat 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 Alcohol use Anemia Arthritis Back pain Cancer Cardiology follow-up encounter Carotid stenosis, right Colon polyps Colon tumor Colonic mass Coronary atherosclerosis Diastolic heart failure Diverticulosis Easy bruising Former smoker High cholesterol History of COVID-19 History of diverticulitis History of echocardiogram History of renal artery stenosis History of stent insertion of renal artery History of stress test HTN (hypertension) Hyperlipidemia Hypertension Hypertensive urgency Impaired fasting glucose Left carpal tunnel syndrome Leg cramps Leg swelling Low iron Osteoarthritis Personal history of colonic polyps Pes anserinus bursitis Presence of left atrial appendage closure device Shortness of breath on exertion Sleep apnea Spinal stenosis Spinal stenosis of lumbar region Stenosis of left internal carotid artery Symptomatic stenosis of both carotid arteries Tachycardia Thrombosis of thoracic aorta TIA (transient ischemic attack) Wears dentures Wears glasses Surgical History H/O carotid endarterectomy H/O carotid endarterectomy History of angioplasty History of cardiac catheterization History of carotid endarterectomy History of colonoscopy History of coronary artery bypass graft (~01/2023) History of heart surgery History of stent insertion of renal artery Status post left knee replacement Family History Father Heart disease Myocardial infarction 65 Cancer liverMother DiabetesBrother Diabetes Social History Smoking Status: Former smoker alcohol intake: former substance use type: does not use caffeine: Yes HPI HPI HPI: 82-year-old gentleman. He has been seen by cardiology and we have had vascular surgery review as well. We are able to hold his anticoagulant and proceed with surgical care as noted. Among the patient's other medications he is on 81 mg aspirin. Apixaban has been discontinued as of April 05, 2023. I performed a colonoscopy for him on April 06, 2023. A large frond-like villous mass was found in the proximal ascending colon. This was Ivana ink marked. Pathology demonstrates fragments of tubulovillous adenoma with focal high-grade dysplasia, carcinoma in situ and focal area suspicious for invasive adenocarcinoma.This likely is contributing to the patient's ongoing anemia. As of April 09, 2023 white blood cell count was 5.4 with a hemoglobin of 9.8 and hematocrit of 32 and a platelet count of 231,000. The patient is on chronic iron therapy. BUN was 18 and creatinine 1.07. Total bilirubin was 0.4. AST 21 and ALT 24 and alkaline phosphatase 75 and total protein 6.8 with an albumin of 3.7. CEA level previously December 11, 2022 was 4.3 and currently it is 6.4. My recent notes reflect the following Visit Reasons: POST CORONARY BYPASS/POTENTIAL COLORECTAL SURGERY Chief Complaint: discuss colectomy [employer] Major Required: No Is patient in pain?: No Allergies Penicillins Allergy (Verified 02/24/23 08:33) Other Medications amlodipine 10 mg tablet 10 mg PO DAILY heart 01/27/16 [History Confirmed 02/24/23] carvedilol 25 mg tablet 1 tab PO BID heart 11/01/20 [History Confirmed 02/24/23] atorvastatin 80 mg tablet 80 mg PO DAILY HDL 11/06/20 [History Confirmed 02/24/23] ascorbic acid (vitamin C) 500 mg tablet (Vitamin C) 1,000 mg PO DAILY supplement 04/08/21 [History Confirmed 02/24/23] cholecalciferol (vitamin D3) 125 mcg (5,000 unit) tablet (Vitamin D3) 125 mcg PO DAILY supplement 04/08/21 [History Confirmed 02/24/23] magnesium 200 mg tablet 400 mg PO DAILY supplement 04/08/21 [History Confirmed 02/24/23] vitamin A 10,000 unit tablet 1,500 mcg PO DAILY supplement 04/08/21 [History Confirmed 02/24/23] vitamin B complex 1 tab PO DAILY supplement 04/08/21 [History Confirmed 02/24/23] vitamin E 400 unit tablet 400 unit PO DAILY supplement 04/08/21 [History Confirmed 02/24/23] aspirin 81 mg chewable tablet 81 mg PO DAILY@0800 [facility] 04/15/21 [History Confirmed 02/24/23] calcium carbonate 600 mg calcium (1,500 mg) tablet (Calcium) 600 mg PO DAILY 08/27/22 [History Confirmed 02/24/23] apixaban 5 mg tablet (Eliquis) mg PO 02/24/23 [History Confirmed 02/24/23] [facility] Medical History AAA (abdominal aortic aneurysm) Abdominal muscle strain Alcohol use Arthritis Back pain Carotid stenosis, right Colon tumor Easy bruising Former smoker High cholesterol History of COVID-19 History of diverticulitis History of echocardiogram History of renal artery stenosis History of stent insertion of renal artery History of stress test HTN (hypertension) Hyperlipidemia Leg cramps Leg swelling Osteoarthritis Shortness of breath on exertion Sleep apnea Spinal stenosis Symptomatic stenosis of both carotid arteries TIA (transient ischemic attack) Wears dentures Wears glasses Surgical History (Updated 02/24/23 @ 08:32 by Nguyen Villanueva) H/O carotid endarterectomy History of carotid endarterectomy History of colonoscopy History of coronary artery bypass graft (~01/2023) History of stent insertion of renal artery Status post left knee replacement Family History Father Heart disease Myocardial infarction Cancer liverMother DiabetesBrother Diabetes Social History Smoking Status: Former smoker substance use type: does not use HPI HPI HPI: 82-year-old gentleman presents to discuss colon polyps and surgical treatment. His most recent colonoscopy was April 11, 2021. He had a tumor in the proximal ascending colon which was biopsied and was a villous adenoma. He had an additional cecal mass that was biopsied that was villous adenoma. The descending colon polyp that was removed was a tubulovillous adenoma. His most recent carotid duplex exam was November 06, 2022 demonstrating 50 to 69% stenosis of the right internal carotid but likely closer to the 50% range and postoperative changes of the left carotid bulb and proximal internal carotid artery with minimally elevated velocities consistent with 50 to 69% stenosis but likely less than that secondary to the postoperative changes. His most recent aortic duplex examination was November 06, 2022 demonstrating is a abdominal aorta measuring 2.83 x 3.11 cm at that time. At the patient's most recent office visit I had planned to perform a esophagogastroduodenoscopy and colonoscopy because of the patient's anemia. That had to be canceled at his most recent office appointment secondary to his acute coronary artery disease. We have been awaiting cardiology treatment and recommendations. The patient has been aware that I have been recommending a laparoscopic right colectomy now since the time of his colonoscopy. To me December 24, 2022 the patient required bypass surgery. He claims that he is on Eliquis now because he is instructed that he has clot in his aorta. We know that he has a small aortic aneurysm of the abdominal aorta. The patient states that sometime in March he is to see a vascular surgeon at [facility]. He states that he has a cardiology appointment locally with Dr. Toni Funk at on March 17, 2023 The patient is on iron supplementation. He notices dark stools. He denies any abdominal pain. He has chronic bilateral extremity leg swelling now left worse than the right because of the knee replacement on the left. My most recent office notes of December 11, 2022 demonstrate the following 82-year-old gentleman is referred for surgical consultation regarding acute blood loss anemia requiring transfusion. I initially assisted to this patient November 01, 2020 when he was referred for TIA. Also appeared to have a strain of the abdominal musculature. Because of bilateral carotid artery stenosis on December 04, 2020 I performed a left carotid enterectomy with bovine patch angioplasty. He was also found to have a small 3 cm asymptomatic abdominal aortic aneurysm. He had abdominal pain and a CT scan suggested thickening of the colon. On April 11, 2021 I performed a colonoscopy for him. An 18 mm polyp in the cecum was biopsied. There is a lesion in the ascending colon that was biopsied and tattooed. A lesion in the proximal descending colon. He was seen back in the office on April 17, 2021. Because of symptomatic right carotid stenosis treatment of his right carotid recommended and it was already discussed at that time that I recommended a laparoscopic right colectomy for this patient. Pathology demonstrated a villous adenoma of the cecum and fragments of villous adenoma of the proximal ascending colon and the descending colon polyp that was removed was a tubulovillous adenoma. The patient subsequently underwent a right carotid enterectomy on April 22, 2021. He was seen by my PA Cara Abdullahi on May 06, 2021 and her notes reflect that it was discussed with him that he needed a carotid duplex exam in 3 weeks and a follow-up office appointment July 2021 to schedule his colectomy. The next time that we are able to get him to come to the office was October 30, 2021. Patient had done well from his staged bilateral carotid enterectomy's. I recommended to him a laparoscopic right colectomy. The patient was well aware of my concerns regarding the polyps now due to several office discussions regarding it. We had the patient scheduled for surgery and the patient canceled the procedure. We again had the patient scheduled for an office appointment September 07, 2022 but he canceled it. We finally were able to get the patient back to the office on August 27, 2022. It only then became apparent that the patient elected to proceed with knee surgery rather than having his colon lesions addressed.. At his most recent appointment I again discussion regarding laparoscopic right colectomy for entertained but at that appointment he was found to be only 6 weeks out from his knee surgery was having significant pain and decreased mobility. Unfortunately at that moment in time he was felt not to be a good candidate proceed with surgery. It was strongly recommended to him that he have his left knee complications addressed and then again recontact me to proceed with a right colectomy. I only now have information that the patient became short of breath and had chest pressure on November 27, 2022 he was then hospitalized at [facility] from November 28 through November 30. He was noted to have a hemoglobin of 7 with hematocrit of 22. BUN 18 creatinine 1.1. Troponins were elevated. Discharge summary states acute myocardial infarction. The patient states that cardiology instructed him that he had heart strain due to the anemia. A cardiac catheterization was going to be done during his hospitalization but that was not. He currently is tentatively as an outpatient have a cardiac catheterization next week. Echocardiogram had an ejection fraction of 60 to 65%. Abdominal CT scan demonstrated a 3.2 cm infrarenal abdominal aortic aneurysm and as noted previously he has been known to have a 3 cm aortic aneurysm. There was persistent wall thickening of the ascending: Which has been a finding previously known about. He is currently on iron supplementation. He notes that his stools are dark. He denies any previous history of peptic ulcer disease ROS General General: No weight change, appetite, fatigue, colon cancer, breast cancer or weakness HEENT HEENT: No difficulty swallowing, eye injury, eye surgery, swollen glands or hoarseness Endo Endocrine: No thyroid disease, diabetes mellitus, thyroid cancer, Hair loss, heat intolerance or cold intolerance Skin Skin: No rash or changing moles Breast Breast: No left breast lump, right breast lump, nipple discharge, breast pain, abnormal mammogram, abnormal US or breast enlargement Musc Musculoskeletal: Yes back problems and arthritis; No rheumatoid arthritis, gout or joint pain Cardio Cardiovascular: Yes heart disease and high blood pressure; No murmur, pacemaker, atrial fibrillation, heart attack, heart stent, palpitations, shortness of breat with exertion or chest pain Psych Psychiatric: No depression, anxiety or hearing voices Resp Respiratory: Yes shortness of breath, Yes sleep apnea, No cough, No COPD, No asthma, No emphysema and No wheezing Gastro Gastrointestinal: No abdominal pain, No nausea or vomiting, No diarrhea, No constipation, No blood in stool, No acid reflux, No hemorrhoids, No ulcers, No gallbladder problem and Yes black,tarry stools Stuart Hematologic: Yes blood thinners, No blood disorders, No bleeding, Yes anemia and No blood clots Neuro Neurologic: No system reviewed and no additional complaints, except as documented, No as per HPI, No abnormal gait, No abnormal hearing, No abnormal movements, No abnormal speech, No behavioral changes, No burning sensations, No confusion, No convulsions, No disequilibrium, No dizziness, No localized weakness, No frequent falls, No headache(s), No lack of coordination, No loss of vision, No memory loss, No numbness, No other visual disturbances, No radicular pain, No restless legs, No sensory deficit, No syncope, No tingling, No tremor(s), No weakness and No other Exam Const General: cooperative, comfortable and no acute distress Nutritional Appearance: average body habitus Other: Mildly pale. No acute distress HENMT Head: normal to inspection Eyes General: appearance normal, both eyes and all related structures Neck Neck: normal visual inspection Chest Chest palpation & inspection: normal inspection of the chest Other: Median sternotomy appears to be solid and intact Resp Effort & Inspection: normal respiratory effort Auscultation: clear to auscultation bilaterally Cardio Rate: regular rate Rhythm: regular rhythm GI Inspection: normal to inspection Palpation: soft and no hepatosplenomegaly Other: I cannot detect any masses or tenderness in the right abdomen Musc Cervical Spine: normal cervical lordosis Skin General: no rashes or lesions noted Neuro General: patient alert, patient awake and patient oriented x3 Extrem General: no calf tenderness Other: 2+ left lower extremity swelling with 1+ right lower extremity swelling Psych Appearance: grossly normal Assessment and Plan Assessment and Plan (1) Anemia: Status: Acute Qualifiers: Anemia type: iron deficiency Iron deficiency anemia type: chronic blood loss Qualified Code(s): D50.0 - Iron deficiency anemia secondary to blood loss (chronic) (2) Personal history of colonic polyps: Status: Acute (3) AAA (abdominal aortic aneurysm): Status: Acute Qualifiers: Presence of rupture: without rupture Qualified Code(s): I71.4 - Abdominal aortic aneurysm, without rupture (4) H/O carotid endarterectomy: Status: Acute Plan I am strongly recommending the patient that we move on with treating this ascending: Tumor which is now been present for 2 years. We need to update his colonoscopy with possible biopsy or polypectomy. We then need to proceed with a laparoscopic right hemicolectomy. The colonoscopy will assess any recurrent disease in the left colon and will assess the growth of the polyps in the right colon. The patient is on Eliquis and he states it is because he has a thrombus in his aorta. He has upcoming vascular surgery and cardiology appointments. I am requesting preoperative review and clearance to proceed with surgical treatment and of course with surgical pretreatment off of his anticoagulants. We will schedule him for a colonoscopy for the third week of March. I will need to have him off his Eliquis for 2 days prior to that because of the likely need to perform biopsies at the time of his procedure. I have not yet scheduled him for the laparoscopic right hemicolectomy until I receive vascular surgery and cardiology evaluation. I appreciate the opportunity of assisting with the surgical care. Copy: Dr. Clemente Madrid and Dr. Toni Rocha M.D., F.A.C.S. Patient Instructions: 1.Discuss eliquis and heart health with and get clearance for colonoscopy and colectomy 2.Talk to vascular surgeon and tell them you have a right colectomy tumor that needs removed 3.Call our office after your vascular appointment and tell us the plan at [phone] 4.Wear your support hose per 's instructions. ROS General General: No weight change, appetite, fatigue, colon cancer, breast cancer or weakness HEENT HEENT: No difficulty swallowing, eye injury, eye surgery, swollen glands or hoarseness Endo Endocrine: No thyroid disease, diabetes mellitus, thyroid cancer, Hair loss, heat intolerance or cold intolerance Skin Skin: No rash or changing moles Musc Musculoskeletal: Yes back problems and arthritis; No rheumatoid arthritis, gout or joint pain Cardio Cardiovascular: Yes heart disease and high blood pressure; No murmur, pacemaker, atrial fibrillation, heart attack, heart stent, palpitations, shortness of breat with exertion or chest pain Psych Psychiatric: No depression, anxiety or hearing voices Resp Respiratory: Yes shortness of breath, Yes sleep apnea, No cough, No COPD, No asthma, No emphysema and No wheezing Gastro Gastrointestinal: No abdominal pain, No nausea or vomiting, No diarrhea, No constipation, No blood in stool, No acid reflux, No hemorrhoids, No ulcers, No gallbladder problem and Yes black,tarry stools Stuart Hematologic: Yes blood thinners, No blood disorders, No bleeding, Yes anemia and No blood clots Neuro Neurologic: No system reviewed and no additional complaints, except as documented, No as per HPI, No abnormal gait, No abnormal hearing, No abnormal movements, No abnormal speech, No behavioral changes, No burning sensations, No confusion, No convulsions, No disequilibrium, No dizziness, No localized weakness, No frequent falls, No headache(s), No lack of coordination, No loss of vision, No memory loss, No numbness, No other visual disturbances, No radicular pain, No restless legs, No sensory deficit, No syncope, No tingling, No tremor(s), No weakness and No other Assessment and Plan Assessment and Plan (1) 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 I recommend to the patient as I have now on multiple occasions a laparoscopic right colectomy with possible conversion to a hand-assisted or open approach. Enhanced recovery protocol will be utilized with a bilateral transabdominal plane block. We will utilize preoperative oral antibiotic and mechanical bowel prep. He is aware of the technique, benefit, risk, alternatives. He has had an opportunity to ask and have questions answered. We have scheduled and will proceed with his surgical care. I appreciate the opportunity of assisting with his ongoing surgical management. The patient has had an opportunity to ask and have questions answered. He is aware that we will attempt to do this laparoscopically but may need to get this for to a hand-assisted or open approach. He is aware about the potential need for diverting ileostomy or colostomy but that that is not the intended procedure at this time. We will obtain preoperative CT imaging. He has been provided ERAS instructions. He has had an opportunity to ask and have questions answered and I appreciate the ongoing opportunity of assisting with the surgical care. Copy: Dr. Clemente Rocha M.D., F.A.C.S As noted below the patient pursued abdominal CT scan findings and's follow-up ultrasound findings. This suggested likely multiple liver cysts however a couple of lesion even with ultrasound cannot be excluded for metastatic disease. Although there was no comment regarding mesenteric adenopathy I believe that I see enlarged lymph nodes within the mesentery to the right colon. It is of additional note that 2 days after the patient's office visit he presented to the emergency room and was seen by Dr. Marshall with a complaint of palpitations. He was evaluated and felt to have tachycardia and he was discharged. I do not see that additional medication or medical treatment has been performed in the interim. We will review with anesthesiology. The patient states that he is on metoprolol because of his tachycardia. He has not had any symptoms since his ER visit. Oscar Rocha M.D., F.A.C.S. April 20, 2023 REASON FOR EXAM: Male, 82 years old. Recent diagnosis of rectal cancer. RADIATION DOSAGE (If Supplied By Facility): CTDIvol = ( 13.08 ) mGy, DLP = ( 1560.43 ) mGycm TECHNIQUE: Transaxial images were obtained from the dome of the diaphragm to the symphysis pubis without oral contrast. IV 100mL Isovue-300 was administered. Sagittal and coronal images were reconstructed. Individualized dose optimization techniques were used for this CT. COMPARISON: Comparison is made with prior study November 20, 2020. FINDINGS: The visualized lung bases are unremarkable. Prior CABG. Coronary artery calcification. There is decreased attenuation of the liver consistent with steatosis. Multiple small low density nodules are seen throughout the liver. There is a new 1.8 cm x 1.6 cm hypodense nodule in the central portion of the right lobe of the liver. A similar appearing nodule is seen in the lower aspect of the right lobe measuring 1 cm. There is also evidence of a hypodense nodule in the medial inferior aspect of the right lower liver measuring 1.7 cm. These may represent metastatic deposits superimposed on hepatic cysts. Correlation with ultrasound is recommended for further evaluation. Normal gallbladder and extrahepatic biliary system. Normal spleen. Normal pancreas. Normal bilateral adrenal glands. Normal right kidney. Left renal cyst. This measures 5.7 cm x 6.4 cm. This is essentially unchanged. Normal visualized stomach. Normal small intestine. There are multiple colonic diverticula consistent with diverticulosis. Circumferential thickening of the rectum suggestive of patient''s history of rectal carcinoma. Is also evidence of a apple core lesion in the cecum. This measures 4 cm x 6 cm. There is diffuse atherosclerotic calcification of the abdominal aorta and its major visceral branches. Dilatation of the distal abdominal aorta with a transverse dimension of 2.8 cm. Normal inferior vena cava. Normal retroperitoneum. Normal urinary bladder. Normal abdominal wall. There are degenerative changes of the visualized lumbar spine. 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 CT/Abdomen/Pelvis WITH Contrast IMPRESSION: Cysts are seen in the liver as well as hypodense nodules which are new as compared to prior study. Metastatic deposit should BE ruled out. Correlation with ultrasound is recommended. Stable left renal cyst. Circumferential wall thickening of the rectum. Apple core lesion is seen in the region of the cecum. A neoplastic process should be ruled out. Electronically Signed: Jorje Wilkes MD at 15:22 EDT , April 21, 2023 STUDY: ABDOMINAL ULTRASOUND - RIGHT UPPER QUADRANT REASON FOR VISIT: Male, [address] scan TECHNIQUE: Ultrasound evaluation of the right upper quadrant was performed with real-time and static mcintosh-scale imaging. TECHNICAL QUALITY: Adequate. COMPARISON: CT scan from yesterday.. FINDINGS: Liver: The liver measures 13.5 cm. There is increased echogenicity consistent with fatty infiltration. The bile ducts are within normal limits. There is hepatic color flow. The direction of portal flow is hepatopetal. Ultrasound confirms that the vast majority of numerous low-attenuation lesions seen on CT a relatively simple cysts. However, there are 3 lesions that are not clearly cysts, masses. These measure as much as 2 cm. Patient will therefore need further evaluation such as follow-up contrast CT or contrast MRI. Gallbladder: There is a contracted gallbladder. The gallbladder wall measures 2 mm. There is a negative sonographic Roche''s sign. There is no pericholecystic fluid. There are no gallstones. Common Bile Duct (C.B.D.): The common bile duct measures 3.1 mm. Pancreas: Normal size of the head, body and tail of the pancreas. There is normal echogenicity of the pancreas. There is no demonstrated pancreatic mass or cyst. Right Kidney: Normal size of the right kidney. The right kidney measures 9.8 x 5.1 x 6.3 cm. Normal renal cortex. The right cortex measures 1.7 cm. There is no demonstrated renal mass or cyst. There is no right hydronephrosis. US/Liver IMPRESSION: As seen on CT scan, numerous small liver cysts. However 2 or 3 lesions may be solid. Recommend further evaluation as above. Electronically Signed: Erick Corbett MD at 22:23 EDT ,
--- NOTE | 2023-04-26 08:24 | DCINST_ITS ---
Discharge Instructions Procedure General Surgery Diet Discharge Diet: Light diet - advance as tolerated (if you have questions about your diet instructions, please talk to you doctor.) Activity Discharge Activity: May Not Drive (for 3-5 days or while taking narcotic pain medicine.) May shower in (days): 1 Lifting Restrictions: 10 pounds Dressing / Incision Call your doctor if your incision/area has: Continuous Slow Oozing, Sudden Increased Bleeding, Increased Pain/ Swelling, Increased Redness and Foul Smelling Discharge Call your doctor if you observe: Fever of 101 or Higher Suture Line Care: Avoid Pulling/Pushing and Avoid Pinching/Bending Additional Dressing/Incision Instructions:: Change or remove dressing in 1 days. Leave steri-strips in place for 1 week. Please collect your Flomax at your pharmacy and take nightly for 7 days. I anticipate acetaminophen as needed for pain. Slowly advance your diet as we discussed. Follow Up Care Please Follow Up With: Oscar Rocha MD When: Call [phone] to make an appointment to be seen in about 7- 10 days. Test Results: Test results from this visit will be discussed in further detail at your follow- up appointment, if applicable. 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 Attending Provider: Oscar Rocha Primary Care Provider: Page Fernandez Consulting Providers: Calixto Kelley Discharge Orders/Prescriptions Prescriptions: New tamsulosin [Flomax] 0.4 mg capsule 0.4 mg PO QHS Qty: 7 0RF Continued atorvastatin 80 mg tablet 80 mg PO QHS calcium carbonate 600 mg calcium (1,500 mg) tablet 600 mg PO BID ascorbate calcium (vitamin C) 500 mg tablet 1 g PO DAILY cholecalciferol (vitamin D3) 125 mcg (5,000 unit) capsule 125 mcg PO DAILY melatonin 10 mg tablet 10 mg PO HS ferrous gluconate 324 mg (38 mg iron) tablet 324 mg PO DAILY Patient Comments: take 1 tablet by mouth once daily metoprolol tartrate 50 mg tablet 50 mg PO DAILY Patient Comments: take 1 tablet by mouth twice a day amlodipine 10 mg tablet 10 mg PO DAILY Qty: 90 3RF aspirin 81 MG tablet,chewable 81 mg PO DAILY@0800 Patient Comments: will stop taking 2 days before surgery metronidazole 500 mg tablet 500 mg PO .COMPLEX Qty: 6 0RF Rx Instructions: 500 mg PO Take 2 (two) tablets at 1300, 1500, 2300 neomycin 500 mg tablet 500 mg PO .COMPLEX Qty: 6 0RF Rx Instructions: Take two (2) 500 mg tablets PO at 1300, 1500, 2300 Referrals / Follow Up: Page Fernandez, FOREIGN BANKNOTE TELLER-C [Primary Care Provider] - Disposition Disposition (needs filled in before D/C Order can be placed): Home, Self Care
[2023-04-26] MEDS: Ciprofloxacin 400 MG/200 ML BAG 200 MG IV ×2 (08:47→21:56)
[2023-04-26] MEDS: metroNIDAZOLE 500 MG/100 ML BAG 100 MG IV ×3 (09:15→23:02)
--- NOTE | 2023-04-26 09:15 | COL._PTH ---
PATIENT: PRASANNA INGRAM LOC: [facility] U#:[id number] AGE/SX: 82/M ROOM: PA315 RE04/26/[address]: Dr. 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 Liver, core biopsy: Metastatic adenocarcinoma. See comment. B. Right colon, hemicolectomy: Invasive adenocarcinoma x2 (involving cecum and ascending colon). See cancer summary in the comment section. SJ:anay 04/30/2023 COMMENT COLON CANCER SUMMARY: Procedure - right hemicolectomy Tumor site - cecum and right (ascending) colon Tumor size - cecal mass - 3.5 x 3.5 x 1.0 cm Ascending colon mass - invasive carcinoma portion 2.0 x 1.0 cm (measured microscopically). Histologic type - adenocarcinoma Histologic grade - cecal mass - moderate to poorly differentiated Ascending colon mass - well to moderately differentiated Tumor extension - cecal and ascending colon mass both invades through the muscularis propria into pericolonic adipose tissue. Margins - Margins are free of invasive carcinoma. The cecal mass is 12.0 cm away from the distal resection margin and ascending colon mass is 9.0 cm away from the distal resection margin. Treatment effect - No known presurgical therapy. Lymphvascular invasion - not identified Perineural invasion - not identified Type of polyp in which invasive carcinoma arose - ascending colon carcinoma arise in the background of villous adenoma and measures 6 x 4 x 1.5 cm. Tumor deposits - present - 6 * Largest tumor deposit measures 0.4 cm in greatest dimension. Regional lymph nodes: Number of lymph nodes examined - 6 Number of lymph nodes involved - 1 (largest lymph node measures 2.5 cm in greatest dimension and completely replaced by the tumor. Extranodal extension is noted and measures 0.7 cm in greatest dimension). Additional pathologic findings - none Ancillary studies: Immunohistochemistry for MSI on both tumors will be performed and the results will be reported separately. PATHOLOGIC STAGE: pT3(m) pN1a pM1a The above summary is in compliance with [employer] [place] [employer] (CAP) Cancer Protocols Checklist and [place] [employer] Committee on Cancer (AJCC), Staging Manual, 8th Ed. Please make reference to previous specimens ([id number]) proximal ascending colon mass, biopsy with diagnosis of fragments of tubulovillous adenoma with focal high-grade dysplasia, carcinoma in situ and focal area suspicious for invasive adenocarcinoma and ([id number]) cecal mass, biopsy with diagnosis of fragments of villous adenoma, proximal ascending colon mass, biopsy with diagnosis of fragments of villous adenoma, and descending colon polyp, biopsy with diagnosis of fragments of tubulovillous adenoma. Case has been reviewed in consultation with Dr. Garcia who concurs with the above diagnosis. IDC:AM MICROSCOPIC DESCRIPTION Slides are reviewed. GROSS DESCRIPTION A - Received in fixative is one container labeled with the patient's name and designated liver biopsy. The specimen consists of a piece of carvalho soft tissue measuring 0.7 cm in length and 0.1 cm in diameter. The specimen is totally submitted in one cassette. B - Received in fixative is one container labeled with the patient's name and designated right colon. The specimen consists of a right hemicolectomy specimen consisting of cecum with ascending colon and segment of small intestine and appendix and attached pericolonic adipose tissue and mesentery. The cecum with ascending colon measures 17.0 cm in length, small intestine measures 6.0 cm in length and appendix measures 4.0 cm in length and 0.7 cm in diameter. A detached piece of omentum is also present measuring 13.0 x 8.0 x 2.0 cm. Both margins are stapled. The lumen contains hemorrhagic fluid. 12.0 cm away from the distal resection margin and 0.5 cm away from the ileocecal valve, there is an ulcerated carvalho, indurated mass measuring 3.5 x 3.5 x 1.0 cm. 9.0 cm away from the distal resection margin and 3.0 cm away from the ileocecal valve, there is a cauliflower-like large sessile polypoid mass measuring 6.0 x 4.0 x 1.5 cm. The pericolonic adipose tissue is fixed in lymph node revealing solution. Sections of the omentum do not reveal any mass lesion. More dictation will follow after additional fixation. / SJ:anay 04/27/2023 Sections of appendix reveal unremarkable cut surfaces. Sections reveal pinpoint lumen. The ulcerated mass in the cecum reveal it involves full thickness of bowel wall. The polypoid mass in the ascending colon reveal focal solid area involving full thickness of the bowel wall. No obvious invasion through the bowel wall is noted. Sections of pericolonic adipose tissue reveal multiple lymph nodes. The largest lymph node measures 2.5 cm in greatest dimension. Compliance Director sections are submitted as follows: 1 - proximal and distal resection margins, 2 - appendix, most proximal portion is inked black, 3 - 6 - tumor in the cecum, 7-13 - cauliflower-like polypoid mass in the ascending colon (bowel wall underneath the polypoid mass and the solid area of the polypoid mass are also submitted in entirety), 14 - account executive sales representative section small bowel, large bowel and ileocecal valve, 15 - omentum, 16-21 - lymph node (16 multiple lymph nodes, 17 - multiple lymph nodes, 18 - one bisected lymph node, 19 & 20 - largest lymph node). Sections will be submitted after additional fixation. / SJ:anay 04/28/2023 TC:0 [facility]: [id number], [id number] ADDENDUM ADDENDUM ADDENDUM ADDENDUM ADDENDUM ADDENDUM ADDENDUM ADDENDUM ADDENDUM ADDENDUM ADDENDUM ADDENDUM ADDENDUM ADDENDUM ADDENDUM ADDENDUM ADDENDUM ADDENDUM ADDENDUM ADDENDUM ADDENDUM ADDENDUM ADDENDUM ADDENDUM ADDENDUM ADDENDUM 05/31/2023 12:55 ADDENDUM 05/31/2023 12:55 ADDENDUM 05/31/2023 12:55 ADDENDUM 05/31/2023 12:55 ADDENDUM 05/31/2023 12:55 [facility] ADVANCED COLORECTAL CANCER NGS REPORT FROM MPV RESULT SUMMARY: Abnormal DETECTED GENOMIC ALTERATIONS: Tier I: Variants of Strong Clinical Significance KRAS p.([id number]) Tier II: Variants of Potential Clinical Significance APC p.([id number]) APC p.([id number]) TP53 p.([id number]) IMMUNOTHERAPY BIOMARKERS: Tumor Mutation [place]: Low (5.5 Mutations / MB) Microsatellite Instability: MSI Negative (2.46%) PERTINENT NEGATIVE RESULTS: The following genes are NEGATIVE for clinically relevant mutations. Mutational hotspots and surrounding exonic regions were interrogated for DNA level point mutations and indels (fusions not assayed). AKT1, ATR, BRAF, CHEK1, EGFR, EPCAM, ERBB2, ERBB3, ERBB4, FGFR1, FGFR2, FGFR3, FGFR4, HRAS, MAP2K1, MET, MLH1, MSH2, MSH6, NRAS, NTRK1, PIK3CA, PMS2, POLD1, POLE, PTEN, SMAD4, STK11, TERT Please see complete report in e-chart or EMR
[2023-04-26] MEDS: Bupivacaine Mpf 0.5% 30 ML VIAL (11:47)
[2023-04-26] MEDS: 0.9% Normal Saline (Pres. free 10 ML Vial (11:47)
[2023-04-26] MEDS: BUPIVACAINE LIPOSOME/PF 20 ML VIAL OPERA.SITE (11:47)
--- NOTE | 2023-04-26 11:53 | PCM.OPRPT ---
Report of Operation Date of Procedure: 04/26/23 Pre-Operative Diagnosis: Advanced ascending colon Adenocarcinoma Post-Operative Diagnosis: Same plus right lobe liver malignant appearing lesion Surgery/Procedure Performed:: Laparoscopic bilateral transverses abdominal plane block Laparoscopic right colectomy Laparoscopic Norman-Cut needle core right lobe liver biopsy Description of Surgical Findings:: Timeout and informed consent was obtained. 82-year-old gentleman was taken to the operating placed upon the table underwent general endotracheal intubation esthesia. Ciprofloxacin 400 mg and metronidazole 500 mg was given intravenously preoperatively he was placed supine the abdomen sterilely prepped and draped throughout the procedure 20 cc of Exparel mixed with 60 cc 0.5% Marcaine with additional 20 cc of saline was used as a local anesthetic. A total of 100 cc was used. Skin sites were repaired and excised. A vertical supraumbilical incision was created holding sutures of 0 Vicryl placed varies needle inserted saline drop test performed the abdomen was insufflated with CO2 to a pressure of 10 mmHg pressure. 10 mm trocar inserted. 10 mm laparoscope inserted. Under visualization a 5 mm trocar was placed in the epigastrium and 1 in the right lower quadrant there is evidence of some Ivana ink staining in the omentum and right paracolic gutter area. The tumor was readily 8 identified as there was withdrawing of the serosa and fixation. To the right of the gallbladder there was approximately a 1.5 cm diameter surface malignant appearing white nodule. The white line of Toldt was incised up to the right lobe of the liver. Then I placed the right colon on stretch identify the ileocolonic vessels used harmonic scalpel to transect fatty preperitoneal tissue the vessel was identified clipped twice proximally with extra-large Hem-o-jamin clips. Little bit of bleeding was rapidly secured and Hem-o-jamin clips applied. Hemostasis was nicely intact. Then I transected the gastro colic omentum got [place] all the way up the proximal transverse colon to the hepatic flexure and then completely mobilized the right colon till I had the mesentery completely open. The terminal ileum itself required some further mobilization as well. All of this was done with harmonic scalpel and hemostasis was intact. I now have the entire right colon mobilized. I also performed a bilateral transversus abdominal plane block under laparoscopic visualization. Having completed the above procedures then the abdomen was allowed to deflate of the CO2 the midline wound at the supraumbilical area was lengthened and a medium wound protector was placed. The right colon was exited. The remainder of the mesentery to the colon and terminal ileum were transected with the harmonic and then a RONALDO 75 stapler was used to transect the bowel at those locations. The bowel was placed [id number]-[id number] in a functional end-to-end capacity. Sutures of 4-0 silk were placed. Enterotomies were created. 75 mm stapler was used to create a [id number]-ai-[id number] anastomosis which was noted to be widely patent. The enterotomy site was closed with a TA 60 stapler. Then I placed a portion of greater omentum as a patch overlying that last repair site with a running 4-0 silk suture. Greater omentum was then allowed to lie over the bowel. Did not make an attempt to close the mesenteric trap. All bowel appeared to be nice and viable with normal blood supply. That was allowed to drop back within the abdomen the abdomen was inspected and it is of note that also previously identified a needle core biopsy of this lesion of the right lobe of the liver with single core had been obtained through a separate stab incision I used electrocautery for hemostasis and then to further hemostasis I placed fibula upon reinspection of the abdomen that area was keenly inspected was noted to be completely hemostatic the right upper quadrant had a minimal amount of fluid which was aspirated free. Greater omentum was placed overlying the small bowel. Structures appear to be intact the abdomen allowed to deflate of the CO2. Changed to sterile gowns gloves and draping. The midline wound was closed with a running #1 PDS suture. Subcutaneous tissues subcutaneous tissues were irrigated. The remainder of the local anesthetic was injected. Wounds were closed with interrupted or running subicular 4 Monocryl. Steri-Strips Telfa OpSite dressings applied. Sponge and instrument and needle counts were reported to the surgeon to be correct. Specimen right colon and core biopsy of the right lobe of the liver. Drains none. Blood loss 50 cc. The patient was taken to the recovery room in satisfactory addition the apparent complication. Oscar Rocha M.D., F.A.C.S. Surgeon: Oscar Rocha Type of Anesthesia: Block,Regional and General Anesthesiologist: Vu Allen
--- NOTE | 2023-04-26 12:08 | EKG12_ITS ---
Test Reason : PRE OP Blood Pressure : / mmHG Vent. Rate : 063 BPM Atrial Rate : 063 BPM P-R Int : 176 ms QRS Dur : 090 ms QT Int : 478 ms P-R-T Axes : 058 -01 053 degrees QTc Int : 489 ms Normal sinus rhythm Inferior infarct , age undetermined Abnormal ECG Confirmed by MAURICIO ALANIZ, YARA ([id number]), purchasing expeditor MELINDA PIMENTEL ([id number]) on 05/10/2023 1:59:31 PM Referred By: Oscar Rocha Confirmed By:ANDRE MARTÍNEZ MD
[2023-04-26 13:45] LABS: Bedside Glucose 124 mg/dL (74-106)
[2023-04-26 14:00] LABS: Troponin-I HS 8 pg/mL (3.0-78.0)
[2023-04-26] MEDS: Ketorolac 30 MG/ML Syringe 15 MG IV ×2 (18:18→23:00)
[2023-04-26] MEDS: Docusate Sodium 100 MG Capsule PO (21:56)
--- NOTE | 2023-04-26 22:45 | NURSING ---
Patient ambulated half a lap around nursing unit and one lap around room.
[2023-04-26] MEDS: Atorvastatin Calcium 80 MG Tablet PO (22:59)
[2023-04-26] MEDS: MELATONIN 10 MG TABLET PO (23:00)
[2023-04-27] VITALS (7 sets, daily range): BP systolic 96–137; BP diastolic 51–62; PULSE 52–73; RESP 14–16; TEMP 36.4–36.8; O2SAT 93–99
[2023-04-27] MEDS: Acetaminophen 500 MG Tablet 1000 MG PO ×4 (03:10→22:14)
--- NOTE | 2023-04-27 06:10 | PCM.PN.SRG ---
Subjective Subjective Believes that he is doing well. With assistance he was able to ambulate once in the halls. No nausea. No flatus. He has been able to void and did not require a catheter. Claims that abdominal pain is approximately 5 but he does not appear to be in that type of discomfort Objective Data Objective Data Vital Signs: Vital Signs Temp Pulse Resp BP Pulse Ox O2 Del Method O2 Flow Rate 98.2 F 69 14 126/52 H 93 Room Air 2 04/27/23 03:04/27/23 03:04/27/23 03:09 04/27/23 03:04/27/23 03:04/27/23 03:04/26/23 16:56 Oxygen Flow Rate (L/min) 2 Oxygen Delivery Method Room Air Weight: 182 lb Body Mass Index (BMI) 28.5 Intake & Output: Intake and Output for Last 24 Hours 04/25/23 04/26/23 04/27/23 23:59 23:59 23:59 Intake Total 1952 / 1951 100 / 100 Output Total 100 / 100 800 / 800 Balance 1852 / 185 -700 / -700 Lab / Micro Data Labs: Laboratory Results - last 24 hr 04/26/23 07:36: POC Glucose 213 H 04/26/23 13:17: Troponin I High Sens 8 04/26/23 13:20: POC Glucose 124 H Physical Exam Const oriented x3 Resp normal respiratory effort GI GI Narrative: Soft, distended, dressings are dry, infrequent bowel sounds Assessment & Plan Assessment/Plan (1) Colon cancer metastasized to liver: PLAN: Patient appears to be doing well postop day 1. I have vigorously encouraged him to mobilize. We will advance to full liquid diet. We will hold his IV fluids. Oscar Rocha M.D., F.A.C.S.
[2023-04-27] MEDS: Ketorolac 30 MG/ML Syringe 15 MG IV ×4 (06:39→23:14)
[2023-04-27 07:09] LABS: Hematocrit 30.7 % (40-54); Hemoglobin 9.6 g/dL (13.0-16.5); Mean Corp Hgb Conc 31.3 g/dL (32-36); Mean Corpuscular Hgb 29.2 pg (27.0-32.0); Mean Corpuscular Volume 93.3 fL (80-94); Mean Platelet Vol. 10.4 fl (6.2-12.0); Platelet Count 193 K/mm3 (150-450); Red Blood Count 3.29 M/mm3 (4.6-6.2)
[2023-04-27 07:36] LABS: Anion Gap 4 (5-15); BUN 12 mg/dL (7-18); BUN/Creat Ratio 11.1 RATIO (10-20); Calcium,Total 8.4 mg/dL (8.5-10.1); Chloride 109 mmol/L (98-107); Creatinine, Serum 1.08 mg/dL (0.70-1.30); EST Glomerular Filtration Rate 69 mL/min (>60); Est Glom Filt Rate - Afr Amer 84 mL/min (>60); Glucose 112 mg/dL (74-106); Potassium 3.8 mmol/L (3.5-5.1); Sodium Level 139 mmol/L (136-145)
[2023-04-27] MEDS: Docusate Sodium 100 MG Capsule PO ×2 (08:18→22:14)
[2023-04-27] MEDS: oxyCODONE 5 MG Tablet PO (08:18)
[2023-04-27] MEDS: Aspirin 81 MG TAB.CHEW PO (08:18)
[2023-04-27] MEDS: Cholecalciferol (Vit D3) 125 MCG CAPSULE (5,000 UNITS) PO (08:19)
[2023-04-27] MEDS: Enoxaparin 40 MG/0.4 ML Syringe SC (08:19)
[2023-04-27] MEDS: Metoprolol Tartrate 50 MG Tablet PO (08:20)
--- NOTE | 2023-04-27 08:38 | PCM.PN.BLA ---
Assessment & Plan Assessment/Plan (1) Colon cancer metastasized to liver: PLAN: - Patient notes lower abdominal/pelvic discomfort - Patient states he has been starting and stopping his urine stream which is not normal for him during the day - Plan to bladder scan the patient to rule out urinary retention as the potential cause of the lower abdominal discomfort/pressure - Will start Flomax to assist with stream - We will continue to monitor this patient
[2023-04-27] MEDS: 0.9% Saline Lock 10 ML Syringe IV ×3 (12:27→23:14)
--- NOTE | 2023-04-27 14:05 | CASEMGMT ---
LUZ MARINA NAIR Assessment: Face to Face with pt for initial transition planning/care coordination assessment. RN JOANIE introduced self and role at [facility], pt voices understanding and consents to assessment. Pt is A/O x4 and answers all questions appropriately at this time. Pt sitting up in bed in no distress. Care providers, pharmacy, and demographics verified/updated. Admitting Dx: lap tyrone colectomy PCP:Jim Specialists: MELVIN Rocha; Cardio in [place] Preferred [facility]acy: [facility] Insurance: [facility] Adv Prescription Benefit: yes LNOK: Leeann Woodward dtr Living Arrangements: Pt lives alone in a single story home with 3 steps to enter with a rail. Pt reports he is I in ADL's and denies concerns at home. Transportation: Pt drives self and denies concerns with transportation. DME/HHC/SNF: Pt has a w/c, walker and cane but does not use. Pt has had HHC in the past through [facility] and denies SNF stays. Pt states no concerns with going home at time of dc. Pt states no further concerns/needs. CM to follow. Advised pt to ask CM if any further question/concerns/needs arise, voices understanding. Pt Goal:Home Plan: Home
[2023-04-27] MEDS: Tamsulosin HCl 0.4 MG Capsule PO ×2 (16:02→17:30)
--- NOTE | 2023-04-27 17:23 | DS.PCM_ITS ---
Providers Date of Admission: 04/26/23 Primary Care Physician: YOAV FullerC Reason For Visit: Laparoscopic, Ronald Colectomy lap ri Diagnosis Discharge Diagnosis (1) Colon cancer metastasized to liver: Status: Acute Code(s): C18.9 - Malignant neoplasm of colon, unspecified; C78.7 - Secondary malignant neoplasm of liver and intrahepatic bile duct Plan: Patient appears to be doing well postop day 1. I have vigorously encouraged him to mobilize. We will advance to full liquid diet. We will hold his IV fluids. Oscar Rocha M.D., F.A.C.S. Medications at Discharge Home Medications atorvastatin 80 mg tablet 80 mg PO QHS HDL 11/06/20 aspirin 81 mg chewable tablet 81 mg PO DAILY@0800 [facility] 04/15/21 ascorbate calcium (vitamin C) 500 mg tablet 1 g PO DAILY supplement 03/09/23 calcium carbonate 600 mg calcium (1,500 mg) tablet 600 mg PO BID supplement 03/09/23 cholecalciferol (vitamin D3) 125 mcg (5,000 unit) capsule 125 mcg PO DAILY supplement 03/09/23 melatonin 10 mg tablet 10 mg PO HS sleep 03/09/23 ferrous gluconate 324 mg (38 mg iron) tablet 324 mg PO DAILY supplement 03/16/23 metoprolol tartrate 50 mg tablet 50 mg PO DAILY blood pressure 03/16/23 amlodipine 10 mg tablet 10 mg PO DAILY bp #90 tabs 03/17/23 metronidazole 500 mg tablet 500 mg PO .COMPLEX preop #6 tabs 04/07/23 neomycin 500 mg tablet 500 mg PO .COMPLEX pre-op antibiotics #6 tabs 04/07/23 tamsulosin 0.4 mg capsule (Flomax) 0.4 mg PO QHS #7 caps 04/27/23 Hospital Course Summary of Care Provided Hospital Course: Patient was admitted to the hospital on April 26, 2023 and underwent a laparoscopic right colectomy with bilateral transverses abdominal plane block and a Norman-Cut core right lobe liver biopsy. His postoperative course was unremarkable. By the afternoon of April 27 he was starting to pass flatus. Did have some mild urinary retention retreated with a straight catheterization and initiating Flomax therapy 0.4 mg daily. Claims that this happens with any type of surgery and it is of note that a Goncalves cath was not placed at the time of surgery and he has been able to void. He states that he is well controlled with pain only taking acetaminophen. Pathology pending. It is anticipated that outpatient surgical follow-up will be pursued as well as seeking outpatient hematology oncology consultation. Weight / BMI Weight Weight: 182 lb Body Mass Index (BMI) 28.5 ABG / Lab / Microbiology Data 04/27/23 06:55 04/27/23 06:55 Laboratory: Laboratory Results - last 24 hr 04/27/23 06:55: WBC 7.0, RBC 3.29 L, Hgb 9.6 L, Hct 30.7 L, MCV 93.3, MCH 29.2, MCHC 31.3 L, RDW Std Deviation 55.0 H, RDW Coeff of Claudia 16.0 H, Plt Count 193, MPV 10.4, Sodium 139, Potassium 3.8, Chloride 109 H, Carbon Dioxide 26.0, Anion Gap 4 L, BUN 12, Creatinine 1.08, Estim Creat Clear Calc 49.30, Est GFR (MDRD) Af Amer 84, Est GFR (MDRD) Non-Af 69, BUN/Creatinine Ratio 11.1, Glucose 112 H, Calcium 8.4 L D/C Instructions Discharge Diet: Light diet - advance as tolerated (if you have questions about your diet instructions, please talk to you doctor.) May shower in (days): 1 Call your doctor if your incision/area has: Continuous Slow Oozing, Sudden Increased Bleeding, Increased Pain/ Swelling, Increased Redness and Foul Sm elling Discharge Call your doctor if you observe: Fever of 101 or Higher Suture Line Care: Avoid Pulling/Pushing and Avoid Pinching/Bending Additional Dressing/Incision Instructions: Change or remove dressing in 4 days. Leave steri-strips in place for 1 week. Please Follow Up With: Oscar Rocha MD When: Call [phone] to make an appointment to be seen in about 10 days. Meaningful Use Info Meaningful Use Diagnoses (Choose all that apply): None applicable 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 Attending Provider: Oscar Rocha Primary Care Provider: Page Fernandez Consulting Providers: Calixto Kelley Discharge Orders/Prescriptions Prescriptions: New tamsulosin [Flomax] 0.4 mg capsule 0.4 mg PO QHS Qty: 7 0RF Continued atorvastatin 80 mg tablet 80 mg PO QHS calcium carbonate 600 mg calcium (1,500 mg) tablet 600 mg PO BID ascorbate calcium (vitamin C) 500 mg tablet 1 g PO DAILY cholecalciferol (vitamin D3) 125 mcg (5,000 unit) capsule 125 mcg PO DAILY melatonin 10 mg tablet 10 mg PO HS ferrous gluconate 324 mg (38 mg iron) tablet 324 mg PO DAILY Patient Comments: take 1 tablet by mouth once daily metoprolol tartrate 50 mg tablet 50 mg PO DAILY Patient Comments: take 1 tablet by mouth twice a day amlodipine 10 mg tablet 10 mg PO DAILY Qty: 90 3RF aspirin 81 MG tablet,chewable 81 mg PO DAILY@0800 Patient Comments: will stop taking 2 days before surgery metronidazole 500 mg tablet 500 mg PO .COMPLEX Qty: 6 0RF Rx Instructions: 500 mg PO Take 2 (two) tablets at 1300, 1500, 2300 neomycin 500 mg tablet 500 mg PO .COMPLEX Qty: 6 0RF Rx Instructions: Take two (2) 500 mg tablets PO at 1300, 1500, 2300 Referrals / Follow Up: Page Fernandez NP-C [Primary Care Provider] - Disposition Disposition (needs filled in before D/C Order can be placed): Home, Self Care
--- NOTE | 2023-04-27 17:25 | PCM.PN.SRG ---
Subjective Subjective Patient states that he feels very well. Pain is under control. He has started to pass flatus. No nausea. He tolerated full liquids. He states that his voiding problems frequently occur after any surgery. Currently he is not feeling uncomfortable. Objective Data Objective Data Vital Signs: Vital Signs Temp Pulse Resp BP Pulse Ox O2 Del Method O2 Flow Rate 97.6 F L 52 L 16 96/62 94 Room Air 2 04/27/23 12:00 04/27/23 12:00 04/27/23 12:00 04/27/23 12:00 04/27/23 12:00 04/27/23 12:00 04/26/23 16:56 Oxygen Flow Rate (L/min) 2 Oxygen Delivery Method Room Air Weight: 182 lb Body Mass Index (BMI) 28.5 Intake & Output: Intake and Output for Last 24 Hours 04/25/23 04/26/23 04/27/23 23:59 23:59 23:59 Intake Total 1952 / 1952 2500 / 2500 Output Total 100 / 100 1600 / 1600 Balance 1852 / 1852 900 / 900 Lab / Micro Data 04/27/23 06:55 04/27/23 06:55 Labs: Laboratory Results - last 24 hr 04/27/23 06:55: WBC 7.0, RBC 3.29 L, Hgb 9.6 L, Hct 30.7 L, MCV 93.3, MCH 29.2, MCHC 31.3 L, RDW Std Deviation 55.0 H, RDW Coeff of Claudia 16.0 H, Plt Count 193, MPV 10.4, Sodium 139, Potassium 3.8, Chloride 109 H, Carbon Dioxide 26.0, Anion Gap 4 L, BUN 12, Creatinine 1.08, Estim Creat Clear Calc 49.30, Est GFR (MDRD) Af Amer 84, Est GFR (MDRD) Non-Af 69, BUN/Creatinine Ratio 11.1, Glucose 112 H, Calcium 8.4 L Assessment & Plan Assessment/Plan (1) Colon cancer metastasized to liver: PLAN: We will advance to transitional diet. I plan on repeating rounds tomorrow morning anticipate discharge tomorrow morning. Oscar Rocha M.D., F.A.C.S.
[2023-04-27] MEDS: Atorvastatin Calcium 80 MG Tablet PO (22:14)
[2023-04-27] MEDS: MELATONIN 10 MG TABLET PO (22:14)
[2023-04-27] MEDS: Ensure Plus High Protein 120 ML LIQUID PO (22:18)
[2023-04-28] MEDS: Acetaminophen 500 MG Tablet 1000 MG PO ×2 (02:59→07:40)
[2023-04-28 03:00] VITALS: BP 109/55; PULSE 67; RESP 16; TEMP 36.4; O2SAT 94
--- NOTE | 2023-04-28 05:54 | PCM.PN.SRG ---
Subjective Subjective Is very comfortable. Has no complaints. He is passing stool and flatus. He is voiding well. At rest he is completely comfortable Objective Data Objective Data Vital Signs: Vital Signs Temp Pulse Resp BP Pulse Ox O2 Del Method O2 Flow Rate 97.6 F L 67 16 109/55 L 94 Room Air 2 04/28/23 03:00 04/28/23 03:00 04/28/23 03:00 04/28/23 03:00 04/28/23 03:00 04/28/23 03:00 04/26/23 16:56 Oxygen Flow Rate (L/min) 2 Oxygen Delivery Method Room Air Weight: 182 lb Body Mass Index (BMI) 28.5 Intake & Output: Intake and Output for Last 24 Hours 04/26/23 04/27/23 04/28/23 23:59 23:59 23:59 Intake Total 1952 / 1952 2500 / 2500 Output Total 100 / 100 1600 / 1600 Balance 1852 / 1852 900 / 900 Lab / Micro Data 04/27/23 06:55 04/27/23 06:55 Labs: Laboratory Results - last 24 hr 04/27/23 06:55: WBC 7.0, RBC 3.29 L, Hgb 9.6 L, Hct 30.7 L, MCV 93.3, MCH 29.2, MCHC 31.3 L, RDW Std Deviation 55.0 H, RDW Coeff of Claudia 16.0 H, Plt Count 193, MPV 10.4, Sodium 139, Potassium 3.8, Chloride 109 H, Carbon Dioxide 26.0, Anion Gap 4 L, BUN 12, Creatinine 1.08, Estim Creat Clear Calc 49.30, Est GFR (MDRD) Af Amer 84, Est GFR (MDRD) Non-Af 69, BUN/Creatinine Ratio 11.1, Glucose 112 H, Calcium 8.4 L Physical Exam Resp normal respiratory effort Cardio regular rate GI GI Narrative: Soft, nontender, midline wound with some staining I remove the dressing it otherwise is dry Assessment & Plan Assessment/Plan (1) Colon cancer metastasized to liver: PLAN: Very strong postoperative course. Patient is ready for discharge he is aware follow-up in the office at 7 to 10 days. He is aware of anticipated medical oncology referral postoperatively as well. 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 He is to take this for the next 7 days Oscar Rocha M.D., F.A.C.S..
[2023-04-28 07:30] VITALS: BP 133/51; PULSE 64; RESP 14; TEMP 36.5; O2SAT 96
[2023-04-28 07:39] VITALS: PULSE 64
[2023-04-28] MEDS: Cholecalciferol (Vit D3) 125 MCG CAPSULE (5,000 UNITS) PO (07:39)
[2023-04-28] MEDS: Metoprolol Tartrate 50 MG Tablet PO (07:39)
[2023-04-28] MEDS: Aspirin 81 MG TAB.CHEW PO (07:41)
[2023-04-28] MEDS: Enoxaparin 40 MG/0.4 ML Syringe SC (07:41)
[2023-04-28] MEDS: Docusate Sodium 100 MG Capsule PO (07:41)
[2023-04-28] MEDS: Ensure Plus High Protein 120 ML LIQUID PO (07:46)
--- NOTE | 2023-04-28 11:09 | CASEMGMT ---
Social Work SW met with pt to discuss advance directives.? Pt confirms she has completed a living will and health care POA naming his daughter Leeann Woodward.? Pt notified that documents are not on file at [facility] and SW requested they be brought in for scanning into the EMR.? RADHA Cabrales
== END 2023-04-28 11:06 | disposition home or self-care (01) | DRG 330 ==
LOC: ACINP 09:49 → MS3 04-27 07:35
PROVIDERS: Anesthesiology; Admitting Provider Surgery; PCP Nurse Practitioner Family; Referring Provider Surgery; Visit Provider Surgery
PROC: 0DTF4ZZ Resection of Right Large Intestine, Percutaneous Endoscopic Approach (ICD-10-PCS; principal; 2023-04-26 08:55)
DX: C18.2 Malignant neoplasm of ascending colon (principal); C78.7 Secondary malignant neoplasm of liver and intrahepatic bile duct; I71.43 Infrarenal abdominal aortic aneurysm, without rupture; D50.0 Iron deficiency anemia secondary to blood loss (chronic); I10 Essential (primary) hypertension; E78.5 Hyperlipidemia, unspecified; I25.10 Atherosclerotic heart disease of native coronary artery without angina pectoris; N28.1 Cyst of kidney, acquired; Z96.652 Presence of left artificial knee joint; Z86.010 Personal history of colon polyps; Z87.891 Personal history of nicotine dependence; Z86.16 Personal history of COVID-19; Z79.82 Long term (current) use of aspirin; R33.9 Retention of urine, unspecified
CPT/HCPCS: 36415; 80048; 81002; 82962; 83735; 84484; 85027; 85610; 85730; 88307; 88309; 88341; 88342; 93005; 94668; J7120; A4216; J0744; J2405; J3475; J3490

== ENCOUNTER → 2023-06-04 | Outpatient (CLI) | payer MEDICARE, SELFPAY ==
[2023-04-26 08:42] VITALS: BMI 28.9
[2023-06-04 12:25] LABS: Hematocrit 35.9 % (40-54); Hemoglobin 10.8 g/dL (13.0-16.5); Mean Corp Hgb Conc 30.1 g/dL (32-36); Mean Corpuscular Hgb 27.1 pg (27.0-32.0); Mean Corpuscular Volume 90.2 fL (80-94); Mean Platelet Vol. 10.9 fl (6.2-12.0); Platelet Count 277 K/mm3 (150-450); RBC Distribution Width CV 15.8 % (11.6-14.6); RBC Distribution Width SD 52.8 fl (35.1-43.9); Red Blood Count 3.98 M/mm3 (4.6-6.2); White Blood Count 6.6 K/mm3 (4.4-11.0)
[2023-06-04 13:00] LABS: AST(SGOT) 60 U/L (15-37); Alanine Aminotransfer ALT/SGPT 29 U/L (16-61); Albumin, Serum 3.5 g/dL (3.2-5.0); Alkaline Phosphatase 156 U/L (45-117); Anion Gap 8 (5-15); BUN 17 mg/dL (7-18); BUN/Creat Ratio 18.6 RATIO (10-20); Calcium,Total 8.9 mg/dL (8.5-10.1); Chloride 107 mmol/L (98-107); Creatinine, Serum 0.92 mg/dL (0.70-1.30); EST Glomerular Filtration Rate 84 mL/min (>60); Est Glom Filt Rate - Afr Amer 102 mL/min (>60); Globulin 3.6 g/dL (2.2-4.2); Glucose 107 mg/dL (74-106); Potassium 3.9 mmol/L (3.5-5.1); Protein, Total 7.1 g/dL (6.4-8.2); Sodium Level 140 mmol/L (136-145)
[2023-06-07 06:06] LABS: G6PD Quant Test 303 (127-427); Red Blood Cell Count Test/G6PD 4.01 x10E6/uL (4.14-5.80)
== END | disposition home or self-care (01) ==
LOC: MTLAB 10:12
PROVIDERS: PCP Nurse Practitioner Family; Referring Provider Registered Nurse; Visit Provider Registered Nurse
DX: C76.0 Malignant neoplasm of head, face and neck (principal); R53.83 Other fatigue; R63.0 Anorexia
CPT/HCPCS: 36415; 80053; 82955; 85027

== ENCOUNTER → 2023-07-06 | Outpatient (CLI) | payer MEDICARE, SELFPAY ==
[2023-04-26 08:42] VITALS: BMI 28.9
[2023-07-06 15:54] LABS: Absolute Lymphocyte Count 1.12 X10^3/uL (0.83-4.51); Absolute Neutrophil Count 7.2 X10^3/uL (2.0-7.7); Basophil# 0.04 X10^3/uL; Basophil% 0.4 % (0-1); Eosinophil# 0.06 X10^3/uL; Eosinophils% 0.6 % (0-5); Hemoglobin 10.8 g/dL (13.0-16.5); Lymphocyte # 1.12 X10^3/ul (0.83-4.51); Lymphocyte % 11.7 % (19-41); Mean Corp Hgb Conc 30.9 g/dL (32-36); Mean Corpuscular Hgb 26.4 pg (27.0-32.0); Mean Corpuscular Volume 85.6 fL (80-94); Mean Platelet Vol. 11.1 fl (6.2-12.0); Monocyte# 1.15 X10^3/uL; NRBC Flagged by Analyzer 0 % (0-5); Platelet Count 307 K/mm3 (150-450); RBC Distribution Width CV 15.4 % (11.6-14.6); RBC Distribution Width SD 47.9 fl (35.1-43.9); Red Blood Count 4.09 M/mm3 (4.6-6.2); White Blood Count 9.6 K/mm3 (4.4-11.0)
[2023-07-06 16:27] LABS: ALB/GLOB Ratio 0.8 RATIO (0.9-2.4); AST(SGOT) 160 U/L (15-37); Alanine Aminotransfer ALT/SGPT 52 U/L (16-61); Albumin, Serum 2.9 g/dL (3.2-5.0); Alkaline Phosphatase 485 U/L (45-117); Amylase 33 U/L (25-115); Anion Gap 5 (5-15); BUN 23 mg/dL (7-18); BUN/Creat Ratio 26.3 RATIO (10-20); Chloride 103 mmol/L (98-107); Creatinine, Serum 0.87 mg/dL (0.70-1.30); EST Glomerular Filtration Rate 89 mL/min (>60); Est Glom Filt Rate - Afr Amer 107 mL/min (>60); Globulin 3.8 g/dL (2.2-4.2); Glucose 137 mg/dL (74-106); Lipase 29 U/L (13-75); Potassium 4.1 mmol/L (3.5-5.1); Protein, Total 6.7 g/dL (6.4-8.2); Sodium Level 137 mmol/L (136-145)
== END | disposition home or self-care (01) ==
LOC: BFHLAB 13:48
PROVIDERS: PCP Nurse Practitioner Family; Visit Provider Nurse Practitioner Family
DX: R10.13 Epigastric pain (principal); R10.12 Left upper quadrant pain
CPT/HCPCS: 36415; 80053; 82150; 83690; 85025

== ENCOUNTER → 2023-07-07 | Outpatient (CLI) | payer MEDICARE, SELFPAY ==
[2023-04-26 08:42] VITALS: BMI 28.9
--- NOTE | 2023-07-07 11:55 | RAD_ITS ---
STUDY: X-RAY - ABDOMEN/PELVIS REASON FOR EXAM: Male, 83 years old. Left lower quadrant pain. TECHNIQUE: Single AP view of the abdomen / pelvis. COMPARISON: None. FINDINGS: Normal visualized lung bases. Mild gaseous distention of both large and small bowel with air seen to the rectum. No disproportionate dilatation of bilateral and mild amount of feces in the colon. The visualized liver, spleen and kidneys are grossly normal in size and morphology. Normal soft tissue structures. Osteoarthrosis of both hips. RAD/Abdomen Single View IMPRESSION: No acute abnormality of the visualized lower chest abdomen or pelvis. Electronically Signed: Poli Woods MD at 13:55 EST ,
== END | disposition home or self-care (01) ==
LOC: RAD 11:49
PROVIDERS: PCP Nurse Practitioner Family; Referring Provider Nurse Practitioner Family; Visit Provider Nurse Practitioner Family
DX: R10.12 Left upper quadrant pain (principal)
CPT/HCPCS: 74018

== ENCOUNTER → 2023-07-30 | Outpatient (CLI) | payer MEDICARE, SELFPAY ==
[2023-04-26 08:42] VITALS: BMI 28.9
[2023-07-30 13:08] LABS: PSA,Total - Annual Screen 0.75 ng/mL (0.00-4.00)
== END | disposition home or self-care (01) ==
LOC: MTLAB 11:24
PROVIDERS: PCP Nurse Practitioner Family; Referring Provider Nurse Practitioner Family; Visit Provider Nurse Practitioner Family
DX: R39.12 Poor urinary stream (principal); Z12.5 Encounter for screening for malignant neoplasm of prostate
CPT/HCPCS: 36415; 84153; G0103

== ENCOUNTER 2023-08-13 11:03 | Inpatient (IN) | payer MEDICARE, SELFPAY ==
[2023-04-26 08:42] VITALS: BMI 28.9
[2023-08-13 11:04] VITALS: BP 150/60; PULSE 91; RESP 16; TEMP 35.7; O2SAT 100
[2023-08-13 11:19] VITALS: BMI 29.2
--- NOTE | 2023-08-13 11:46 | EKG12_ITS ---
Test Reason : Blood Pressure : / mmHG Vent. 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
--- NOTE | 2023-08-13 11:46 | CT_ITS ---
EXAM: CT HEAD WITHOUT INTRAVENOUS CONTRAST CLINICAL INDICATION: injury leg weakness TECHNIQUE: Multiple axial images were obtained of the head without intravenous contrast. This CT exam was performed using one or more of the following dose reduction techniques: automated exposure control, adjustment of the mA and/or kV according to patient size, and/or use of iterative reconstruction technique. RADIATION DOSE: CTDIvol = 44.99 mGy, DLP = 829.85 mGy-cm COMPARISON: CTA head without contrast and CTA head and neck with contrast 10/31/2020. FINDINGS: BRAIN AND EXTRA-AXIAL SPACES: Unremarkable. No intra- or extra-axial hemorrhage. No evidence of acute infarct. No intracranial mass or mass effect. There is preservation of the mcintosh/white matter interface. Posterior fossa structures are unremarkable. Ventricles are appropriate for age. No hydrocephalus. Basal cisterns are patent. BONES/JOINTS: Unremarkable. No discrete lytic or blastic abnormalities. SINUSES: Unremarkable as visualized. Clear. MASTOID AIR CELLS: Unremarkable. Clear. ORBITS: Visualized globes, extraocular muscles, optic nerves and retrobulbar fat appear unremarkable. CT/Brain/Head without Contrast IMPRESSION: Negative head/brain CT without intravenous contrast and unchanged when compared to 10/31/2020. Electronically Signed: Abdirahman Alcantar MD at 13:08 EST ,
--- NOTE | 2023-08-13 11:46 | RAD_ITS ---
EXAM: XR CHEST, 1 VIEW CLINICAL INDICATION: CHF. TECHNIQUE: Frontal view of the chest. COMPARISON: 04/14/2023. FINDINGS: LUNGS AND PLEURAL SPACES: Increased elevation of the right hemidiaphragm suspicious for right phrenic nerve paresis. No suspicious infiltrates. No pneumothorax. No effusion. HEART: Unremarkable. Normal cardiac size. MEDIASTINUM: Central airways and mediastinal contour are unremarkable. BONES/JOINTS: Intact sternal wires. Foreshortening and deformity in the distal left clavicle may be secondary to remote injury. This is unchanged. No acute fracture. SOFT TISSUES: Radiopaque clip in the left intervertebral appendage is unchanged. RAD/Chest 1 View (Portable) IMPRESSION: 1. No acute cardiopulmonary pathology. 2. Increased elevation of right hemidiaphragm suspicious for right phrenic nerve paresis. Electronically Signed: Abdirahman Alcantar MD at 15:11 EST ,
--- NOTE | 2023-08-13 11:47 | CT_ITS ---
EXAM: CT ABDOMEN AND PELVIS WITH INTRAVENOUS CONTRAST CLINICAL INDICATION: Metastatic colon cancer. AAA TECHNIQUE: Helically acquired images were obtained of the abdomen and pelvis with intravenous contrast. This CT exam was performed using one or more of the following dose reduction techniques: automated exposure control, adjustment of the mA and/or kV according to patient size, and/or use of iterative reconstruction technique. CONTRAST: IV 100mL [id number] RADIATION DOSE: CTDIvol = 17.06 mGy, DLP = 1158.06 mGy-cm COMPARISON: Whole body PET/CT fusion scan 05/18/2023. CT abdomen and pelvis with contrast 04/20/2023. FINDINGS: LOWER THORAX: Unremarkable. Lung bases are clear. No cardiomegaly. No significant pericardial effusion. ABDOMEN: LIVER: Marked increase in number and size of now diffuse rim-enhancing metastatic masses throughout the liver parenchyma. GALLBLADDER AND BILE DUCTS: At least 2 small calcified gallstones inside nondilated gallbladder fossa. No gallbladder distention or wall edema. PANCREAS: Unremarkable. No focal cystic or solid mass. SPLEEN: Unremarkable. Normal size without focal cystic or solid mass. ADRENALS: Small hypodense nodule in left adrenal gland is unchanged. Normal right adrenal gland. KIDNEYS AND URETERS: Nonenhancing left posterior renal parenchymal cyst is unchanged. Nonenhancing intrasinus cysts in the left kidney are unchanged. No stones or hydronephrosis in both kidneys. Normal renal size and position. STOMACH AND BOWEL: Multiple diverticula along the sigmoid colon and few diverticula in the descending colon but no diverticulitis. Surgical sutures in the hepatic flexure from previous right hemicolectomy. No stomach or bowel distention. PELVIS: APPENDIX: Postsurgical absence. BLADDER: Unremarkable. REPRODUCTIVE: Unremarkable as visualized. No mass. ABDOMEN and PELVIS: INTRAPERITONEAL SPACE: Mild ascites in the paracolic gutters and central pelvis. This is a new finding. No free air. BONES/JOINTS: Rim-enhancing metastases to the left glenoid is unchanged. SOFT TISSUES: Unremarkable. No discrete abdominal or pelvic wall hernia. VASCULATURE: Unremarkable. Abdominal aorta is non-dilated. LYMPH NODES: Unremarkable. No enlarged lymph nodes. CT/Abdomen/Pelvis W IV Cont ONLY IMPRESSION: 1. Progression and worsening of now diffuse liver metastatic masses, increasing in size and number. 2. New small ascites in the paracolic gutters and central pelvis. This is presumably malignant ascites. 3. Interval right hemicolectomy. 4. 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 This is a benign lesion and unchanged. 5. Colonic diverticulosis, more along the sigmoid colon but no diverticulitis. 6. Benign nonenhancing left posterior renal parenchymal cyst in left renal intrasinus cysts are unchanged. Electronically Signed: Abdirahman Alcantar MD at 13:35 EST ,
--- NOTE | 2023-08-13 11:50 | CT_ITS ---
STUDY: CT LUMBAR SPINE WITHOUT CONTRAST REASON FOR EXAM: Male, 83 years old. Back pain RADIATION DOSAGE (If Supplied By Facility): CTDIvol = ( 37.37 ) mGy, DLP = ( 1151.22 ) mGycm TECHNIQUE: The patient was scanned in a multi detector CT scanner. High resolution transaxial imaging was performed. Images were obtained from upper T10 to lower S3. Sagittal and coronal images were reconstructed. Individualized dose optimization techniques were used for this CT. COMPARISON: CT abdomen and pelvis with contrast 04/20/2023. FINDINGS: Normal lumbar lordosis. There is no substantial scoliosis. No lytic or blastic lesions throughout the lumbar spine. Normal vertebral body heights. T10-T11: Normal endplates. Mild disc space height narrowing. Mild intradiscal calcification. No ventral extradural defect. No significant facet arthropathy. Normal central canal and bilateral intervertebral neural foramina. Moderate calcified plaques along the abdominal aorta. T11-T12: Schmorl''s node in the T11 inferior endplate. Normal T12 superior endplate. Mild disc space height narrowing. No significant facet arthropathy. Normal central canal and bilateral lateral recesses. Normal bilateral intervertebral neural foramina. Calcified plaques along the abdominal aorta. L1-2: Normal endplates. Normal disc height and morphology. No significant facet arthropathy. Normal central canal and bilateral lateral recesses. Normal bilateral intervertebral neural foramina. Moderate calcified plaques in the abdominal aorta. L2-3: Normal endplates. Mild disc space height narrowing. No significant facet arthropathy. Normal central canal and bilateral lateral recesses. Normal bilateral intervertebral neural foramina. L3-4: Normal endplates. Normal disc height and morphology. No significant facet arthropathy. Normal central canal and bilateral lateral recesses. Normal bilateral intervertebral neural foramina. L4-5: Normal endplates. Normal disc height and morphology. Moderate right degenerative facet arthropathy. Mild left degenerative facet arthropathy. Normal central canal and bilateral lateral recesses. Normal bilateral intervertebral neural foramina. L5-S1: Grade 2 anterolisthesis of L5 on S1. Pronounced L5-S1 disc space height narrowing with mild Modic type III degenerative vertebral marrow sclerosis underneath the S1 superior endplate. Bilateral L5 pars defects. Normal central canal and bilateral lateral recesses. Moderate stenosis of the bilateral intervertebral neural foramina. Normal visualized paraspinous soft tissue structures. CT/Spine Lumbar without Contrast IMPRESSION: 1. No lytic or blastic metastatic disease or acute abnormality of the lumbar spine and the included visualized sacral ala and SI joints. 2. Moderate stenosis of the bilateral L5-S1 intervertebral neural foramina secondary to pronounced L5-S1 degenerative disc space height narrowing, grade 2 anterolisthesis of L5 on S1 and bilateral L5 pars defects. 3. No CT evidence of lumbar extruded disc fragment or disc protrusion. Electronically Signed: Abdirahman Alcantar MD at 13:44 EST ,
--- NOTE | 2023-08-13 11:50 | EX.ED.DYSGE1 ---
HPI History of Present Illness Chief Complaint: Weakness Informant: patient Narrative Narrative: 83-year-old male presenting to the emergency department with bilateral leg weakness. 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 He states he is currently receiving palliative care with [facility]. Patient states about 1-1/2 weeks ago he began to have paresthesias of the bilateral legs that is now progressed into generalized weakness. He states its become harder and harder for him to move around. States about 10 days ago he fell striking the left side of his head. He was seen at an outside hospital and received stitches to the ear. He states that he has progressively declined since then. He notes pain in the low left back. He notes pain on the right side of his abdomen which he states is not new. He notes that his legs today are swollen and appear wider than normal. He has a history of abdominal aortic aneurysm as well as CABG. The patient notes that for a year he has had a bedsore on the right buttock that has opened and closed and he states now is about the diameter of a softball. He is not seeing wound care. He denies any loss of bowel or bladder control. He states he can move the legs they are just generally weak. 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 Alcohol use Anemia Arthritis Back pain Bruising Cancer Cardiology follow-up encounter Carotid stenosis, right Colon cancer, ascending Colon polyps Colon tumor Colonic mass Coronary atherosclerosis Diastolic heart failure Diverticulosis Easy bruising Encounter for education Former smoker High cholesterol History of COVID-19 History of diverticulitis History of echocardiogram History of renal artery stenosis History of stent insertion of renal artery History of stress test HTN (hypertension) Hyperlipidemia Hypertension Hypertensive urgency Impaired fasting glucose Iron deficiency anemia due to chronic blood loss Left carpal tunnel syndrome Leg cramps Leg swelling Low iron Metastasis to liver Osteoarthritis Personal history of colonic polyps Pes anserinus bursitis Presence of left atrial appendage closure device Regional lymph node metastasis present Shortness of breath on exertion Sleep apnea Spinal stenosis Spinal stenosis of lumbar region Stenosis of left internal carotid artery Symptomatic stenosis of both carotid arteries Tachycardia Thrombosis of thoracic aorta TIA (transient ischemic attack) Wears dentures Wears glasses Home Medications atorvastatin 80 mg tablet 80 mg PO QHS HDL 11/06/20 [History Last Taken 04/25/23] aspirin 81 mg chewable tablet 81 mg PO DAILY@0800 heart health 04/15/21 [History Last Taken 04/23/23] ascorbate calcium (vitamin C) 500 mg tablet 1 g PO DAILY supplement 03/09/23 [History Last Taken 04/22/23] calcium carbonate 600 mg calcium (1,500 mg) tablet 600 mg PO BID supplement 03/09/23 [History Last Taken 04/22/23] cholecalciferol (vitamin D3) 125 mcg (5,000 unit) capsule 125 mcg PO DAILY supplement 03/09/23 [History Last Taken 04/22/23] melatonin 10 mg tablet 10 mg PO HS sleep 03/09/23 [History Last Taken Unknown] ferrous gluconate 324 mg (38 mg iron) tablet 324 mg PO DAILY supplement 03/16/23 [History Last Taken 04/26/23 04:00] metoprolol tartrate 50 mg tablet 50 mg PO BID blood pressure 03/16/23 [History Last Taken 04/26/23 04:00] amlodipine 10 mg tablet 10 mg PO DAILY bp #90 tabs 03/17/23 [Rx Last Taken 04/26/23 04:00] oxycodone 5 mg tablet 5 mg PO Q6H PRN pain 06/14/23 [History Last Taken Unknown] Allergy/AdvReac Type Severity Reaction Status Date / Time Penicillins Allergy Other Verified 08/13/23 11:04 Family History Father Heart disease Myocardial infarction 65 Cancer liver Mother Diabetes Emphysema lung Brother Diabetes Sister Cancer Lymphoma (?) Surgical History H/O carotid endarterectomy H/O carotid endarterectomy History of angioplasty History of cardiac catheterization History of carotid endarterectomy History of colonoscopy History of coronary artery bypass graft (~01/2023) History of heart surgery History of stent insertion of renal artery S/P colectomy Status post left knee replacement Social History Smoking Status: Former smoker quit date: 08/16/00 pack-years: 45 Tobacco: How many years used: 30 how long ago did patient quit smoking: smoked 1-1.5ppd x 30 yrs; quit 22-23 years ago alcohol intake: former substance use type: does not use caffeine: Yes ROS ROS ED Constitutional Constitutional ED: Denies chills, fever(s) or weight loss Eyes Eyes: Denies change in vision or diplopia ENT ENT ED: Denies ear pain, rhinorrhea or sore throat Cardiovascular Cardiovascular: Denies chest pain, orthopnea, palpitations or racing heartbeat Respiratory/Chest Respiratory/Chest: Reports cough; Denies dyspnea or orthopnea Gastrointestinal Gastrointestinal: Reports abdominal pain; Denies diarrhea, nausea or vomiting Genitourinary Genitourinary ED: Denies dysuria, hematuria or urinary frequency Musculoskeletal Musculoskeletal: Reports back pain; Denies arthralgias or myalgias Integumentary Denies abscess or rash Neurologic Neurologic: Reports paresthesias RLE and LLE, weakness and other Details: Generalized lower extremity weakness. ; Denies headache(s) Psychiatric Psychiatric: Denies anxiety, depression, suicidal ideation or suicidal thoughts Endocrine Endocrinology: Denies polydipsia, polyphagia or polyuria Allergic/Immunologic Allergic/Immunologic ED: Reports other Details: Lower extremity pallor ; Denies mouth swelling, tongue swelling or urticaria EXAM Physical Exam Const Vital Signs: 08/13/23 11:04 08/13/23 11:23 08/13/23 15:09 Temperature 96.3 F L Temperature Source Temporal Pulse Rate 91 78 Respiratory Rate 16 16 Respiratory Effort Normal Non-Labored Respiratory Pattern Normal Blood Pressure 150/60 H 141/61 H Blood Pressure Mean 90 87 Pulse Ox 100 99 Oxygen Delivery Method Room Air 08/13/23 16:01 Temperature Temperature Source Pulse Rate Respiratory Rate Respiratory Effort Respiratory Pattern Blood Pressure 136/53 H Blood Pressure Mean 80 Pulse Ox 98 Oxygen Delivery Method Positive well nourished and well developed General Appearance ED: well developed HEENT Reports normocephalic, head/scalp atraumatic and moist mucous membranes Eyes PERRL and EOMs intact bilaterally Neck no lymphadenopathy, supple and no JVD Resp normal respiratory effort and clear to auscultation bilaterally Cardio regular rate, regular rhythm and no murmurs GI non-tender Palpation: soft and tender RLQ and RUQ Back/Spine no CVA tenderness Back/Spine Narrative: Painful sore range of motion. There appears to be a chronic ecchymotic like appearance to the mid to low back skin. There is a area of erythema about the diameter of a softball located in the midline of the sacral region extending to both the left and the right buttock. The right buttock appears to have some crusting of the skin. This area appears consistent with a stage I to stage II decubitus. Extremity Extremity Narrative: There is a gradual change in skin tone to whitish hue of the feet. The lower extremities are still warm. He is able to wiggle the toes dorsi and plantarflex. He is able to bend the knees up to a hip flexed position. He is able to assist in lifting up his buttock to help slight his pants down. General Extremety ED: Yes edema General Extremity: edema bilateral lower extremity Details: moderate Neuro oriented x3 and CN's II-XII intact bilaterally Sensorium / Orientation: alert Motor Exam: general weakness Psych mental status grossly normal Mood & Affect: Negative for depressed or tearful Skin Skin Narrative: See back exam MDM MDM MDM Narrative Medical decision making narrative: White count 16.3. Hemoglobin 10.7 with a platelet count of 352. INR 1.3. Creatinine 1.50 with a BUN of 82. Total bilirubin 4.8 direct bilirubin 3.7 AST of 420 ALT of 109 alk phos 8089. Troponin 16 BNP 173 total protein 6.3 albumin 2.2. Lipase 150. Urinalysis with no overt infection. My independent interpretation of the chest x-ray is no acute process. CT of the abdomen pelvis was obtained. This demonstrates innumerable tumor burden to the liver. There is development of ascites. Please see radiologist read. CT of the brain is negative for hemorrhage or mass. CT of the lumbar spine does not demonstrate any obvious lytic lesions. The above findings were discussed with the patient and his daughter from [place]. Patient wishes to visit with hospice. He does not want aggressive treatments which is understandable. I had social work visit with the patient. My biggest concern is the patient's safety at home. He currently lives alone. He does have a daughter in [place]. He states he is on a 1 floor and has no access to a wheelchair. He states he believes that as long as his legs do not get any weaker he can treat himself at home. I had Dr. Steele from the hospitalist service to evaluate the patient. Were going to admit him tonight. We are to provide some diuresis gastroenterology consult for possible palliative stenting. This will also allow us time to bring hospice into visit with the patient and his family to provide resources. History & Record Review Discussion w/independent historian: Patient and Family Lab Data Attestation: I reviewed the patient's lab results. Labs: Laboratory Results - last 24 hr 08/13/23 08/13/23 12:00 12:25 WBC 16.3 H RBC 4.07 L Hgb 10.7 L Hct 31.8 L MCV 78.1 L MCH 26.3 L MCHC 33.6 RDW Std Deviation 53.4 H RDW Coeff of Claudia 19.9 H Plt Count 352 MPV 10.3 Immature Gran % (Auto) 0.800 Neut % (Auto) 88.0 H Lymph % (Auto) 2.9 L [place] % (Auto) 7.3 Eos % (Auto) 0.7 Baso % (Auto) 0.3 Absolute Neuts (auto) 14.4 H Absolute Lymphs (auto) 0.48 L Nucleated RBC % 0 Differential Comment COMMENT PT 15.8 H INR 1.3 APTT 32.6 Sodium 130 L Potassium 4.6 Chloride 96 L Carbon Dioxide 24.0 Anion Gap 10 BUN 82 H Creatinine 1.50 H Estim Creat Clear Calc 34.89 Est GFR (MDRD) Af Amer 58 L Est GFR (MDRD) Non-Af 48 L BUN/Creatinine Ratio 54.7 H Glucose 104 Calcium 10.2 H Total Bilirubin 4.80 H Direct Bilirubin 3.74 H AST 420 H ALT 109 H Alkaline Phosphatase 889 H Troponin I High Sens 16 B-Natriuretic Peptide 173.0 H Total Protein 6.3 L Albumin 2.2 L Globulin 4.1 Lipase 150 H Urine Color Yellow Urine Clarity Sl. Cloudy Urine pH 5.0 Ur Specific Sn[place] 1.020 Urine Protein 15 H Urine Glucose (UA) Normal Urine Ketones 5 H Urine Occult Blood 25 H Urine Nitrite Negative Urine Bilirubin 1 H Urine Urobilinogen 1 H Ur Leukocyte Esterase Negative Urine RBC 0 SEEN Urine WBC 0-5 SEEN Ur Squamous Epith Cells 0 SEEN Urine Bacteria 0 SEEN Hyaline Casts 0-5 SEEN Urine Mucus 0 SEEN Radiography Diagnostic Testing: Clinical Impression(s) from Imaging Studies Brain CT 08/13/23 11:46 IMPRESSION: Negative head/brain CT without intravenous contrast and unchanged when compared to 10/31/2020. Electronically Signed: Abdirahman Alcantar MD at 13:08 EST , Chest X-Ray 08/13/23 11:46 IMPRESSION: 1. No acute cardiopulmonary pathology. 2. Increased elevation of right hemidiaphragm suspicious for right phrenic nerve paresis. Electronically Signed: Abdirahman Alcantar MD at 15:11 EST Reading Location ID and State: [facility] / [place] , Service support , Abdomen/Pelvis CT 08/13/23 11:47 IMPRESSION: 1. Progression and worsening of now diffuse liver metastatic masses, increasing in size and number. 2. New small ascites in the paracolic gutters and central pelvis. This is presumably malignant ascites. 3. Interval right hemicolectomy. 4. 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 This is a benign lesion and unchanged. 5. Colonic diverticulosis, more along the sigmoid colon but no diverticulitis. 6. Benign nonenhancing left posterior renal parenchymal cyst in left renal intrasinus cysts are unchanged. Electronically Signed: Abdirahman Alcantar MD at 13:35 EST Reading Location ID and State: [facility] / [place] , Service support , Lumbar Spine CT 08/13/23 11:50 IMPRESSION: 1. No lytic or blastic metastatic disease or acute abnormality of the lumbar spine and the included visualized sacral ala and SI joints. 2. Moderate stenosis of the bilateral L5-S1 intervertebral neural foramina secondary to pronounced L5-S1 degenerative disc space height narrowing, grade 2 anterolisthesis of L5 on S1 and bilateral L5 pars defects. 3. No CT evidence of lumbar extruded disc fragment or disc protrusion. Electronically Signed: Abdirahman Alcantar MD at 13:44 EST , EKG Initial EKG: Attestation: I personally reviewed and interpreted this EKG as follows: Comments: Normal sinus rhythm with a ventricular rate of 76 bpm Management Discussion w/another healthcare provider: Hospitalist and balcony worker/Case management Discharge Plan Triage Chief Complaint: Weakness ED Provider: Amol Gould Dx/Rx/DC Orders Prescriptions: No Action atorvastatin 80 mg tablet 80 mg PO QHS calcium carbonate 600 mg calcium (1,500 mg) tablet 600 mg PO BID ascorbate calcium (vitamin C) 500 mg tablet 1 g PO DAILY cholecalciferol (vitamin D3) 125 mcg (5,000 unit) capsule 125 mcg PO DAILY melatonin 10 mg tablet 10 mg PO HS ferrous gluconate 324 mg (38 mg iron) tablet 324 mg PO DAILY Patient Comments: take 1 tablet by mouth once daily metoprolol tartrate 50 mg tablet 50 mg PO BID Patient Comments: take 1 tablet by mouth twice a day amlodipine 10 mg tablet 10 mg PO DAILY Qty: 90 3RF oxycodone 5 mg tablet 5 mg PO Q6H PRN (Reason: pain) aspirin 81 MG tablet,chewable 81 mg PO DAILY@0800 Patient Comments: will stop taking 2 days before surgery Primary Care Provider: Page Fernandez Referrals: Page Fernandez NP-C [Primary Care Provider] -
[2023-08-13 12:09] LABS: Absolute Lymphocyte Count 0.48 X10^3/uL (0.83-4.51); Absolute Neutrophil Count 14.4 X10^3/uL (2.0-7.7); Basophil# 0.05 X10^3/uL; Basophil% 0.3 % (0-1); Eosinophil# 0.12 X10^3/uL; Eosinophils% 0.7 % (0-5); Hematocrit 31.8 % (40-54); Hemoglobin 10.7 g/dL (13.0-16.5); Lymphocyte # 0.48 X10^3/ul (0.83-4.51); Lymphocyte % 2.9 % (19-41); Mean Corp Hgb Conc 33.6 g/dL (32-36); Mean Corpuscular Hgb 26.3 pg (27.0-32.0); Mean Corpuscular Volume 78.1 fL (80-94); Mean Platelet Vol. 10.3 fl (6.2-12.0); Monocyte% 7.3 % (0-10); NRBC Flagged by Analyzer 0 % (0-5); Neutrophil # 14.35 X10^3/uL (2.7-7.7); POSITIVE DIFFERENTIAL YES; Platelet Count 352 K/mm3 (150-450); RBC Distribution Width CV 19.9 % (11.6-14.6); RBC Distribution Width SD 53.4 fl (35.1-43.9); Red Blood Count 4.07 M/mm3 (4.6-6.2); White Blood Count 16.3 K/mm3 (4.4-11.0)
[2023-08-13 12:11] LABS: Differential Indicated SCAN CRITERIA MET
[2023-08-13 12:19] LABS: Partial Thromboplast Time 32.6 Seconds (24.1-36.2)
[2023-08-13 12:22] LABS: International Normalized Ratio 1.3; Prothrombin Time (Protime)PT. 15.8 SECONDS (11.7-14.9)
[2023-08-13 12:25] LABS: AST(SGOT) 420 U/L (15-37); Alanine Aminotransfer ALT/SGPT 109 U/L (16-61); Albumin, Serum 2.2 g/dL (3.2-5.0); Alkaline Phosphatase 889 U/L (45-117); Anion Gap 10 (5-15); BUN 82 mg/dL (7-18); BUN/Creat Ratio 54.7 RATIO (10-20); Bilirubin, Direct 3.74 mg/dL (0.00-0.30); Calcium,Total 10.2 mg/dL (8.5-10.1); Chloride 96 mmol/L (98-107); EST Glomerular Filtration Rate 48 mL/min (>60); Est Glom Filt Rate - Afr Amer 58 mL/min (>60); Estimated Creatinine Clearance 34.89 ml/min; Globulin 4.1 g/dL (2.2-4.2); Glucose 104 mg/dL (74-106); Lipase 150 U/L (13-75); Potassium 4.6 mmol/L (3.5-5.1); Protein, Total 6.3 g/dL (6.4-8.2); Sodium Level 130 mmol/L (136-145); Troponin-I HS 16 pg/mL (3.0-78.0)
[2023-08-13 12:34] LABS: Bacteria 0 SEEN /hpf (None Seen); Mucous, Urine 0 SEEN /hpf (<or=2+); Red Blood Cells-Urine 0 SEEN /hpf (0-5); Squamous Epithelial Cells - UA 0 SEEN /hpf (0-5)
[2023-08-13 12:47] LABS: Color, Urine Yellow (Yellow); Glucose, Dipstick Normal (Normal); Ketone-Dipstick 5 mg/dl (Negative); Leukocyte Esterase-Dipstick Negative /ul (Negative); Nitrite-Dipstick Negative (Negative); Occult Blood-Urine 25 /ul (Negative); Protein-Dipstick 15 mg/dl (Negative); Urine Clarity Sl. Cloudy (Clear); Urine Urobilinogen 1 mg/dl (Normal)
[2023-08-13 12:57] LABS: Urine Bilirubin Dipstick 1 mg/dL (Negative)
[2023-08-13 12:58] LABS: Hyaline Cast 0-5 SEEN /lpf (0-5); White Blood Cells 0-5 SEEN /hpf (0-5)
[2023-08-13 15:09] VITALS: BP 141/61; PULSE 78; RESP 16; O2SAT 99
[2023-08-13 16:01] VITALS: BP 136/53; O2SAT 98
[2023-08-13] MEDS: oxyCODONE 5 MG Tablet PO ×2 (16:52→22:58)
[2023-08-13 17:15] LABS: Ammonia < 10.0 umol/L (11-32)
--- NOTE | 2023-08-13 17:19 | NURSING ---
MED SURG WHITE METS COLON CANCER
--- NOTE | 2023-08-13 17:26 | PCM.HP.STD ---
HPI - General General Date of Admission: 08/13/23 Date of Service: 08/13/23 Chief Complaint: Weakness, increased BL LE swelling, R sided abdominal pain, sharp, intermittent. HPI Narrative The patient is an 83 y/o M w/ PMHx: Former tobacco use, CKD stage II based on GFR trending, Obesity, AAA w/ Hx thoracic thrombosis, Chronic anemia, Carotid disease s/p CEA, Hx renal artery stenosis s/p stent insertion, HFpEF, CAD s/p CABG, Metastatic Colon CA s/p colectomy, HTN, HLD, ASHA, Hx TIA who presents to the [facility] ED on 08/13/23 with history of increased generalized weakness, worse to the BL LE with onset 1-1.5 weeks prior onset of BL LE paresthesias with progressively increasing difficulty to ambulate with a fall approximate 10 days prior unfortunately striking his left head seen at outside hospital with stitches performed with progressive decline since then as well as ongoing low left back pain as well as abdominal pain to the right side which is new for him with increased swelling to his legs. He does note because of his debilities he has had unfortunately an opening again of a bedsore on his right buttock and is not following with wound care. He notes he can move his legs but they are more than anything just weak. He notes his right-sided abdominal pain is intermittent and when it does occur it is sharp and rates the discomfort when it is occurring up to 8 out of 10 in severity with no nausea or emesis related. He denies any recent fevers or chills. Workup in the ED included T96.3, heart rate 91, BP 150/60, respiratory rate 16, 100% on room air, CBC with WBC 16.3, hemoglobin 10.7, MCV 78.1, platelet 352 with left shift and lymphopenia, coags with PT 15.8, INR 1.3, PTT 32.6, CMP with sodium 130, chloride 96, BUN/creatinine 82/1.50, calcium 10.2, T. bili 4.80, D bili 3.74, AST/ALT 420/109, alk phos 889, troponin 16, BNP 173, lipase 150, urinalysis noted to be cloudy, specific remedy 1.020, protein 15, ketone 5, occult blood 25, negative nitrite, negative leukocyte Estrace and no evidence of UTI, CT brain with no acute intracranial findings, chest x-ray with no acute cardiopulmonary findings, increased elevation right hemidiaphragm suspicious for possibly right phrenic nerve paresis, CT abdomen and pelvis with IV contrast only with progression and worsening of now diffuse liver metastatic masses increasing in size and number, some new small ascites in the paracolic gutters and central pelvis presumably malignant, interval evidence right hemicolectomy, rim-enhancing left adrenal mass not metabolically active on PET scan this likely benign lesion and unchanged, colonic diverticulosis more along the sigmoid colon with no diverticulitis, benign nonenhancing left posterior renal parenchymals, CT lumbar spine with no lytic or blastic metastatic disease or acute abnormality of the lumbar spine and the included visualized sacral dipak and SI joints, moderate stenosis of the bilateral L5-S1 intervertebral neural foramina secondary pronounced L5-S1 degenerative disc space height narrowing, grade 2 anterior listhesis of L5-S1 and bilateral L5 pars defects. In the ED given discomfort and significant lower extremity swelling with discomfort associated patient ministered Lasix 60 mg IV x 1 and oxycodone 5 mg p.o. x 1. Patient upon discussions is very eager for hospice at home and hospice was initially called per ED physician but patient was evaluated given debility and inability to really ambulate well for potential admission pending set up of hospice at home and after discussions is also amenable to GI evaluation for possible palliative stenting. [facility], [facility] Medical History (Updated 08/13/23 @ 18:[address] 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 Alcohol use Anemia Arthritis Back pain Cancer Cardiology follow-up encounter Carotid stenosis, right Colon cancer, ascending Colon polyps Colon tumor Colonic mass Coronary atherosclerosis Diastolic heart failure Diverticulosis Former smoker High cholesterol History of COVID-19 History of diverticulitis History of echocardiogram History of renal artery stenosis History of stent insertion of renal artery History of stress test HTN (hypertension) Hyperlipidemia Hypertension Hypertensive urgency Impaired fasting glucose Iron deficiency anemia due to chronic blood loss Left carpal tunnel syndrome Leg cramps Leg swelling Low iron Metastasis to liver Osteoarthritis Personal history of colonic polyps Pes anserinus bursitis Presence of left atrial appendage closure device Regional lymph node metastasis present Shortness of breath on exertion Sleep apnea Spinal stenosis Spinal stenosis of lumbar region Stenosis of left internal carotid artery Symptomatic stenosis of both carotid arteries Tachycardia Thrombosis of thoracic aorta TIA (transient ischemic attack) Wears dentures Wears glasses Home Medications atorvastatin 80 mg tablet 80 mg PO QHS HDL 11/06/20 [History Last Taken 04/25/23] aspirin 81 mg chewable tablet 81 mg PO DAILY@0800 heart health 04/15/21 [History Last Taken 04/23/23] ascorbate calcium (vitamin C) 500 mg tablet 1 g PO DAILY supplement 03/09/23 [History Last Taken 04/22/23] calcium carbonate 600 mg calcium (1,500 mg) tablet 600 mg PO BID supplement 03/09/23 [History Last Taken 04/22/23] cholecalciferol (vitamin D3) 125 mcg (5,000 unit) capsule 125 mcg PO DAILY supplement 03/09/23 [History Last Taken 04/22/23] melatonin 10 mg tablet 10 mg PO HS sleep 03/09/23 [History Last Taken Unknown] ferrous gluconate 324 mg (38 mg iron) tablet 324 mg PO DAILY supplement 03/16/23 [History Last Taken 04/26/23 04:00] metoprolol tartrate 50 mg tablet 50 mg PO BID blood pressure 03/16/23 [History Last Taken 04/26/23 04:00] amlodipine 10 mg tablet 10 mg PO DAILY bp #90 tabs 03/17/23 [Rx Last Taken 04/26/23 04:00] oxycodone 5 mg tablet 5 mg PO Q6H PRN pain 06/14/23 [History Last Taken Unknown] Allergy/AdvReac Type Severity Reaction Status Date / Time Penicillins Allergy Other Verified 08/13/23 11:04 Family History Father Heart disease Myocardial infarction 65 Cancer liver Mother Diabetes Emphysema lung Brother Diabetes Sister Cancer Lymphoma (?) Surgical History H/O carotid endarterectomy H/O carotid endarterectomy History of angioplasty History of cardiac catheterization History of carotid endarterectomy History of colonoscopy History of coronary artery bypass graft (~01/2023) History of heart surgery History of stent insertion of renal artery S/P colectomy Status post left knee replacement Social History (Updated 08/13/23 @ 18:[address] Maureen Steele MD) household members: none Smoking Status: Former smoker quit date: 08/16/00 pack-years: 45 Tobacco: How many years used: 30 how long ago did patient quit smoking: smoked 1-1.5ppd x 30 yrs; quit 22-23 years ago alcohol intake: former substance use type: does not use caffeine: Yes ROS ROS Narrative Admission Review of Systems: CONSTITUTIONAL: No weight loss, fever, chills, + weakness or fatigue. HEENT: Eyes: No visual loss, blurred vision, double vision or yellow sclerae. Ears, Nose, Throat: No hearing loss, sneezing, congestion, runny nose or sore throat. SKIN: No rash or itching, lesions, wounds, + occasional staged ecchymoses, abrasion, stasis skin changes to lower extremities. CARDIOVASCULAR: + Increasing edema to lower extremities. No chest pain, chest pressure or chest discomfort, palpitations, orthopnea, syncopal events. RESPIRATORY: + Mild shortness of breath primarily with exertion. No cough or sputum, wheezing, hemoptysis. GASTROINTESTINAL: + anorexia, abdomninal pain. No nausea, vomiting, diarrhea, melena, BRBPR. GENITOURINARY: No dysuria, frequency, urgency or retention. NEUROLOGICAL: No headache, dizziness, syncope, paralysis, ataxia, numbness or tingling in the extremities, focal weakness, change in bowel or bladder control, seizure. MUSCULOSKELETAL: + muscle, back pain, joint pain or stiffness. HEMATOLOGIC: + anemia, bleeding/bruising. LYMPHATICS: No enlarged nodes. No history of splenectomy. PSYCHIATRIC: No history of depression or anxiety. ENDOCRINOLOGIC: No reports of sweating, cold or heat intolerance. No polyuria or polydipsia. ALLERGIES: No history of asthma, hives, eczema or rhinitis. Vital Signs Vital Signs Vital Signs: 08/13/23 11:04 08/13/23 11:23 08/13/23 15:09 Temperature 96.3 F L Temperature Source Temporal Pulse Rate 91 78 Respiratory Rate 16 16 Respiratory Effort Normal Non-Labored Respiratory Pattern Normal Blood Pressure 150/60 H 141/61 H Blood Pressure Mean 90 87 Pulse Ox 100 99 Oxygen Delivery Method Room Air 08/13/23 16:01 Temperature Temperature Source Pulse Rate Respiratory Rate Respiratory Effort Respiratory Pattern Blood Pressure 136/53 H Blood Pressure Mean 80 Pulse Ox 98 Oxygen Delivery Method Weight Weight: 187 lb 2.759 oz Body Mass Index (BMI) 29.2 Physical Exam Narrative Physical Examination: General: Awake, alert, oriented x 3 and cooperative, seated upright in the ED bed, fatigued, jaundiced appearing. Skin: Jaundiced with scleral icterus present, normal turgor, no cyanosis, occasional staged ecchymoses, abrasion, bilateral lower extremity stasis skin changes. HEENT: AT/NC, EOMI, PERRLA, mildly dry MM, no carotid bruits or JVD noted. Lungs: Diminished, greater base is, proper effort, no rales, ronchi or wheezing. Heart: Regular rate and rhythm; no gallop, rub audible. Abdomen: Soft, discomfort primarily to right upper quadrant and right lower quadrant palpation but no rebound or guarding, hyperactive BS, difficult to appreciate distention, positive HM. Extremities: No cyanosis, no clubbing, pedal to upper extremity pitting edema present, see skin. Neurological: Patient awake, alert, oriented as noted, cognitive function intact; pupils equally reactive to light and accommodation, cranial nerves grossly normal, moving all 4 extremities, no focal deficits, strength moderately to severely globally decreased. Psychiatric: Affect appears flat, fatigued, no acute evidence of depressive or anxiety feelings. Results Lab / Micro Data 08/13/23 12:00 08/13/23 12:00 Labs: Laboratory Results - last 24 hr 08/13/23 12:00: WBC 16.3 H, RBC 4.07 L, Hgb 10.7 L, Hct 31.8 L, MCV 78.1 L, MCH 26.3 L, MCHC 33.6, RDW Std Deviation 53.4 H, RDW Coeff of Claudia 19.9 H, Plt Count 352, MPV 10.3, Immature Gran % (Auto) 0.800, Neut % (Auto) 88.0 H, Lymph % (Auto) 2.9 L, Harmon % (Auto) 7.3, Eos % (Auto) 0.7, Baso % (Auto) 0.3, Absolute Neuts (auto) 14.4 H, Absolute Lymphs (auto) 0.48 L, Nucleated RBC % 0, Differential Comment COMMENT, PT 15.8 H, INR 1.3, APTT 32.6, Sodium 130 L, Potassium 4.6, Chloride 96 L, Carbon Dioxide 24.0, Anion Gap 10, BUN 82 H, Creatinine 1.50 H, Estim Creat Clear Calc 34.89, Est GFR (MDRD) Af Amer 58 L, Est GFR (MDRD) Non-Af 48 L, BUN/Creatinine Ratio 54.7 H, Glucose 104, Calcium 10.2 H, Total Bilirubin 4.80 H, Direct Bilirubin 3.74 H, AST 420 H, ALT 109 H, Alkaline Phosphatase 889 H, Troponin I High Sens 16, B-Natriuretic Peptide 173.0 H, Total Protein 6.3 L, Albumin 2.2 L, Globulin 4.1, Lipase 150 H 08/13/23 12:25: Urine Color Yellow, Urine Clarity Sl. Cloudy, Urine pH 5.0, Ur Specific [place] 1.020, Urine Protein 15 H, Urine Glucose (UA) Normal, Urine Ketones 5 H, Urine Occult Blood 25 H, Urine Nitrite Negative, Urine Bilirubin 1 H, Urine Urobilinogen 1 H, Ur Leukocyte Esterase Negative, Urine RBC 0 SEEN, Urine WBC 0-5 SEEN, Ur Squamous Epith Cells 0 SEEN, Urine Bacteria 0 SEEN, Hyaline Casts 0-5 SEEN, Urine Mucus 0 SEEN 08/13/23 16:35: Ammonia < 10.0 L Imagaing Radiology Impression Brain CT 08/13/23 11:46 IMPRESSION: Negative head/brain CT without intravenous contrast and unchanged when compared to 10/31/2020. Electronically Signed: Abdirahman Alcantar MD at 13:08 EST Reading Location ID and State: [facility] / [place] , Service support , Chest X-Ray 08/13/23 11:46 IMPRESSION: 1. No acute cardiopulmonary pathology. 2. Increased elevation of right hemidiaphragm suspicious for right phrenic nerve paresis. Electronically Signed: Abdirahman Alcantar MD at 15:11 EST , Abdomen/Pelvis CT 08/13/23 11:47 IMPRESSION: 1. Progression and worsening of now diffuse liver metastatic masses, increasing in size and number. 2. New small ascites in the paracolic gutters and central pelvis. This is presumably malignant ascites. 3. Interval right hemicolectomy. 4. 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 This is a benign lesion and unchanged. 5. Colonic diverticulosis, more along the sigmoid colon but no diverticulitis. 6. Benign nonenhancing left posterior renal parenchymal cyst in left renal intrasinus cysts are unchanged. Electronically Signed: Abdirahman Alcantar MD at 13:35 EST , Lumbar Spine CT 08/13/23 11:50 IMPRESSION: 1. No lytic or blastic metastatic disease or acute abnormality of the lumbar spine and the included visualized sacral ala and SI joints. 2. Moderate stenosis of the bilateral L5-S1 intervertebral neural foramina secondary to pronounced L5-S1 degenerative disc space height narrowing, grade 2 anterolisthesis of L5 on S1 and bilateral L5 pars defects. 3. No CT evidence of lumbar extruded disc fragment or disc protrusion. Electronically Signed: Abdirahman Alcantar MD at 13:44 EST , Assessment & Plan Assessment/Plan (1) Metastasis to liver: PLAN: Plan The patient is an 83 y/o M w/ PMHx: Former tobacco use, CKD stage II based on GFR trending, Obesity, AAA w/ Hx thoracic thrombosis, Chronic anemia, Carotid disease s/p CEA, Hx renal artery stenosis s/p stent insertion, HFpEF, CAD s/p CABG, Metastatic Colon CA s/p colectomy, HTN, HLD, ASHA, Hx TIA who presents to the [facility] ED on 08/13/23 with history of increased generalized weakness, worse to the BL LE with onset 1-1.5 weeks prior onset of BL LE paresthesias with progressively increasing difficulty to ambulate with a fall approximate 10 days prior unfortunately striking his left head seen at outside hospital with stitches performed with progressive decline since then as well as ongoing low left back pain as well as abdominal pain to the right side which is new for him with increased swelling to his legs. #1. Acute transaminitis and hyperbilirubinemia w/ Metastatic Colon Cancer (Adenocarcinoma) to Liver with suspected Obstructive process: History of colonic polyps w/ c-scope 2020 with tubular adenomas with following 04/06/23 c-scope with malignant appearing lesion in the proximal ascending colon c/w tubulovillous adenoma with focal high-grade dysplasia, carcinoma in situ and focal area suspicious for invasive adenocarcinoma. 04/26/23 with bilateral transverses abdominal plane block, right colectomy, Norman-Cut needle core right lobe liver biopsy (pathology Metastatic adenocarcinoma). PET scan with increased radiopharmaceutical concentration manifest in the right lower abdominal mesentery, left and right lobe hepatic parenchymal hypermetabolic foci. Following with Dr. Bryan, patient offered systemic chemotherapy w/ modified FOLFOX 6 first-line considered palliative but declined and requested non chemotherapy treatment. From records visit 06/23/23 planned insurance approval pending for Regorafenib (Stivarga) with also palliative referral at that time. Will admit to medical surgical floor, will request gastroenterology involvement as patient likely needs palliative stenting, will obtain MRCP to further assess anatomy, will trend closely CMP as well as lipase, NH level upon admission normal, will currently maintain n.p.o. status on IV PPI with continue judicious fluids, will have as needed antiemetics and pain regimen, ED pulse dosed with lasix 60 mg x 1 for comfort given BL LE edema, may consider redosing pending response and will place snug LUKAS wraps. PT/OT/case management consulted for discharge planning to assess home needs with continued Hospice consultation per discussion with patient with his preference to return to home if able and safe. #2. Acute kidney injury on CKD stage II per GFR trending w/ Hx renal artery stenosis s/p stent insertion: Secondary to acute presentation as noted. Admission BUN/Cr 82/1.50, prior baseline creatinine noted to be 0.8-1.0. Will judiciously hydrate, hold nephrotoxic medications and repeat chemistry in AM. If no improvement would plan FeNa and renal ultrasound assessment. Continue asa, holding statin given elevations as noted, continue HTN regimen with adjustments as needed. #3. Adult failure to thrive, multifactorial, progressively worsening: As noted #1, #2 significantly contributing, will maintain on fall precautions, PT/OT/case not consulted as patient at this point potentially needs intervention but also likely needs placement. #4. HFpEF: 02/06/2023 echocardiogram with normal LV cavity size, normal wall thickness, systolic function normal, EF 60 to 65%, no regional wall motion abnormalities, normal diastolic function reported despite chart history as noted, mild MV regurgitation. BNP only mildly elevated 173 but no marked findings on CT scan at lung bases with lungs noted to be clear with no marked effusion noted. Holding asa for ERCP potential, holding statin given elevations as noted, continue metoprolol as BP allows. #5. Chronic microcytic anemia: Admission hemoglobin 10.7, MCV 78.1, following with hematology/oncology, baseline hemoglobin appears primarily recently 10 range, stable, continue to trend, continue iron oral supplementations and further interventions per hematology discretion. #6. Hypertension: Continue home regimen including metoprolol, amlodipine, PRN hydralazine. #7. Hyperlipidemia: Holding statin therapy given significant elevations as noted, resume once appropriate. #8. CAD: s/p CABG, temporarily holding baby aspirin for ERCP potential, holding statin given elevations as noted, continue metoprolol as BP allows. #9. Carotid disease: s/p CEA, continue baby aspirin, holding statin given elevations as noted, continue metoprolol as BP allows. #10. AAA with history of thoracic thrombus: Not currently chronically anticoagulated, previous history, temporarily holding baby aspirin for ERCP potential, holding statin given elevations as noted, continue hypertensive therapy as BP allows. #11. Hx TIA: Temporarily holding baby aspirin for ERCP potential, holding statin given elevations as noted, continue metoprolol as BP allows. #12. Former tobacco use: Encourage continued tobacco cessation. #13. Stage I to stage II decubitus right buttock ulcer: Wound RN consulted, encourage offloading, barrier care. #14. ASHA: PAP therapy. #15. DVT prophylaxis: SCDs. #16. CODE status: Patient HCPOA and LW are in place. He daughter is his HCPOA. Discussed CODE status at length including difference between FULL code, DNR-CCA and DNR-CC status. Following discussions about the differences in these status, requested DNR-CC and form signed in preparation for hospice evaluation for home set-up ideally per discussion with him. He is willing to have evaluation for palliative stenting with GI evaluation. Advanced Care Planning Face to Face Time: 16 minutes. Charges/Coding Visit Charges Inpatient E&M: 35972 Init Hosp L3 Procedures Hospitalists Procedures: 53703 Advncd Care Plan 30 Min
[2023-08-13] MEDS: Furosemide 100 MG/10 ML Vial 60 MG IV (17:36)
[2023-08-13 17:40] VITALS: BP 132/49
--- NOTE | 2023-08-13 17:45 | MRI_ITS ---
STUDY: MR CHOLANGIOPANCREATOGRAPHY (MRCP) REASON FOR EXAM: Male, 83 years old. Obstructive jaundice -- Dr. Friend wants MRCP to see anatomy for palliative stenting. TECHNIQUE: Standard MRCP technique was utilized. 3-D reconstructions were performed. COMPARISON: None. FINDINGS: Gall Bladder: Normal with no distention or demonstrated fixed intraluminal filling defect. Cystic duct: Normal with no demonstrated fixed filling defect. Intrahepatic ducts: Intrahepatic ducts were not well visualized, likely due to extrinsic compression by the innumerable metastases throughout the liver.. Common hepatic duct: Normal with no demonstrated fixed filling defect, dilation or stricture. Common bile duct: Normal with no demonstrated fixed filling defect, dilation or stricture. Pancreatic duct: Normal with no demonstrated fixed filling defect, dilation or stricture. MRI/MRCP Abdomen without Contrast IMPRESSION: No biliary obstruction. Electronically Signed: Tucker Bear MD at 22:48 EST ,
--- NOTE | 2023-08-13 18:00 | CM.ED ---
Social Work Consult plan ER physician regarding cancer diagnosis/support, evaluation of resources, and hospice consult. With patient in room, introducing yourself in social work role. Patient was laying in bed, staring up at the ceiling, when this typewriter aligner walked into the room. Patient informed this typewriter aligner that does not have a lot longer to live in found out today that his cancer has progressed more quickly than expected. Patient reports had a consult with palliative medicine sometime at the beginning of August. Patient confirms that has chosen not to seek any type of treatment such as radiation or chemotherapy and still maintains that intention. Patient asked this typewriter aligner whether this typewriter aligner thought hospice was appropriate over palliative medicine. Educated patient to hospice, which would be in line if patient is choosing not to seek any type of curative treatment. Educated that hospice can provide more support than palliative. Patient in agreement with a hospice consult. Patient reports would like to return home with hospice. Educated the patient that typically hospice would like someone to have a caregiver at home because hospice is not there 24 hours a day. Educated to the hospice IPU, though uncertain whether patient would qualify for the IPU at this time. Attempted to problem solve and explore potential options for aftercare. Patient reports to live in a one-story home, three steps to enter that handrails are at the steps. Patient reports to have access to walker and a wheelchair at home. Reports still prepares on meals takes care of on ADLs and still drives admits over the last week or two has become weaker and has not been able to walk far distances without having to take breaks. Patient has no history of nursing facility placement. Does have a history of home healthcare, but not currently. Patient reports to have two daughters, Leeann Woodward ([phone]) who lives in [place] and Blanca quiroz ([phone]) who lives in [place]. Patient reports that his daughter [place] has a 16-year-old care for and is currently in school to become a nurse practitioner. Reports the daughter in [place] has three children to care for, so for both children it would be a quote inconvenience to help care for the patient. Patient reports his daughter who is local, has been trying to get the patient to come and stay there, but that was when patient was fully functional. Patient is worried now that with patients declining health for this would not be feasible. Through conversation did learn the daughter only has a bathroom upstairs, so this would be more challenging for the patient to go and stay. Patient reports to now he would be unable to do the stairs at this point. Attempted to explore whether patient might have finances to help pay for some private daycare at home, but patient reports he is living on a pension and still has bills and mortgage to pay. In fact patient reports his home is for sale and the plan was to move into a small apartment. Patient reports to have a power of litigation attorney associate about [facility] living will, prepared by patient's litigation attorney associate. Paperwork is at home. Patient reports Vern would be able to return home as he currently is, though this typewriter aligner gently approached me need to start thinking about some longer-term options. Patient reports is fine going home from the ER or being admitted, whichever the doctor feels is appropriate. Patient is agreeable to a hospice referral. Called [facility] and made a referral to the admissions line. Asked for hospice consult in the emergency room and that this was a time sensitive matter. This typewriter aligner informed submit referral right away and try to find somebody to come in; stated unsure what the schedule for [facility] is like since admissions office is in [place]. Checked back in with Dr. Gould who reports decision has been made to admit the patient. This typewriter aligner checked in with patient, and offered to call one of the patient's daughters to update, but patient reports wanted to call his children. This typewriter aligner called hospice back and let hospice know consult is not as time sensitive this evening, but a consult on 08.14.23 would be appreciated. Fax all referral information to . This typewriter aligner received a phone call back from hospice leaving this typewriter aligner a message that hospice has let the patient a message requesting a call back to set up a time. Handoff to social services designee, working on 08.14.23. -FLAKITA Barros, ZEUS *This note was generated with [email or web address] software. It may contain incorrect words, spelling, and punctuation that were not noted in review of the chart prior to signing*
[2023-08-13 18:13] LABS: Magnesium 2.7 mg/dL (1.6-2.6); Phosphorus 3.8 mg/dL (2.5-4.9)
[2023-08-13 19:18] VITALS: BMI 26.7
[2023-08-13 19:22] VITALS: BP 130/53; PULSE 78; RESP 16; TEMP 36.5; O2SAT 97
--- NOTE | 2023-08-13 19:52 | NURSING ---
hospice notified pt said 8 am on 08/14 would be ok to see him
[2023-08-13] MEDS: Menthol/Lanolin/Calamine/Znox 113 GM Tube 1 APPLIC TOPICAL (20:07)
[2023-08-13 20:08] VITALS: PULSE 78
[2023-08-13] MEDS: MELATONIN 10 MG TABLET PO (20:08)
[2023-08-13] MEDS: Metoprolol Tartrate 50 MG Tablet PO (20:08)
[2023-08-13] MEDS: Pantoprazole Sodium 40 MG in 0.9% Normal Saline (100mL MB+) 100 ML 330 MG IV (20:08)
[2023-08-13] MEDS: 0.9% Normal Saline (250mL Bag) 250 ML 15 ML IV (20:23)
[2023-08-13] MEDS: Dronabinol 2.5 MG Capsule PO (20:23)
[2023-08-14 05:41] VITALS: BMI 26.8
[2023-08-14 05:42] VITALS: BP 109/60; PULSE 62; RESP 16; TEMP 36.4; O2SAT 95
[2023-08-14 06:59] LABS: Absolute Neutrophil Count 9.7 X10^3/uL (2.0-7.7); Basophil# 0.04 X10^3/uL; Basophil% 0.3 % (0-1); Eosinophil# 0.22 X10^3/uL; Eosinophils% 1.8 % (0-5); Hematocrit 29.9 % (40-54); Hemoglobin 9.9 g/dL (13.0-16.5); Lymphocyte % 7.5 % (19-41); Mean Corp Hgb Conc 33.1 g/dL (32-36); Mean Corpuscular Volume 78.5 fL (80-94); Mean Platelet Vol. 10.6 fl (6.2-12.0); Monocyte# 1.15 X10^3/uL; Monocyte% 9.6 % (0-10); NRBC Flagged by Analyzer 0 % (0-5); Neutrophil # 9.65 X10^3/uL (2.7-7.7); Neutrophil % 80.5 % (47-70); POSITIVE MORPHOLOGY YES; Platelet Count 311 K/mm3 (150-450); RBC Distribution Width CV 20.7 % (11.6-14.6); RBC Distribution Width SD 55.2 fl (35.1-43.9); Red Blood Count 3.81 M/mm3 (4.6-6.2)
[2023-08-14 07:13] LABS: ALB/GLOB Ratio 0.5 RATIO (0.9-2.4); AST(SGOT) 383 U/L (15-37); Alanine Aminotransfer ALT/SGPT 99 U/L (16-61); Albumin, Serum 1.9 g/dL (3.2-5.0); Alkaline Phosphatase 723 U/L (45-117); Anion Gap 8 (5-15); BUN 78 mg/dL (7-18); Calcium,Total 9.3 mg/dL (8.5-10.1); Chloride 99 mmol/L (98-107); EST Glomerular Filtration Rate 48 mL/min (>60); Est Glom Filt Rate - Afr Amer 58 mL/min (>60); Estimated Creatinine Clearance 34.89 ml/min; Globulin 3.5 g/dL (2.2-4.2); Glucose 87 mg/dL (74-106); Potassium 4.5 mmol/L (3.5-5.1); Protein, Total 5.4 g/dL (6.4-8.2); Sodium Level 131 mmol/L (136-145)
--- NOTE | 2023-08-14 07:17 | PN.HOSP_ITS ---
Reason for Visit Reason for Visit: Diagnoses Secondary malignant neoplasm of liver and intrahepatic bile duct (08/13/23) Objective Data Objective Data Vital Signs: Vital Signs Temp Pulse Resp BP Pulse Ox O2 Del Method 97.5 F L 62 16 109/60 95 Room Air 08/14/23 05:42 08/14/23 05:42 08/14/23 05:42 08/14/23 05:42 08/14/23 05:42 08/14/23 05:42 Oxygen Delivery Method Room Air Weight: 170 lb 14.4 oz Body Mass Index (BMI) 26.8 Intake & Output: Intake and Output for Last 24 Hours 08/12/23 08/13/23 08/14/23 23:59 23:59 23:59 Intake Total 151.75 / 151.75 Output Total 500 / 500 150 / 150 Balance -348.25 / -348.25 -150 / -150 Lab / Micro Data 08/13/23 12:00 08/14/23 06:45 Labs: Laboratory Results - last 24 hr 08/13/23 12:00: WBC 16.3 H, RBC 4.07 L, Hgb 10.7 L, Hct 31.8 L, MCV 78.1 L, MCH 26.3 L, MCHC 33.6, RDW Std Deviation 53.4 H, RDW Coeff of Claudia 19.9 H, Plt Count 352, MPV 10.3, Immature Gran % (Auto) 0.800, Neut % (Auto) 88.0 H, Lymph % ( Auto) 2.9 L, [place] % (Auto) 7.3, Eos % (Auto) 0.7, Baso % (Auto) 0.3, Absolute Neuts (auto) 14.4 H, Absolute Lymphs (auto) 0.48 L, Nucleated RBC % 0, Differential Comment COMMENT, PT 15.8 H, INR 1.3, APTT 32.6, Sodium 130 L, Potassium 4.6, Chloride 96 L, Carbon Dioxide 24.0, Anion Gap 10, BUN 82 H, Creatinine 1.50 H, Estim Creat Clear Calc 34.89, Est GFR (MDRD) Af Amer 58 L, Est GFR (MDRD) Non-Af 48 L, BUN/Creatinine Ratio 54.7 H, Glucose 104, Calcium 10.2 H, Phosphorus 3.8, Magnesium 2.7 H, Total Bilirubin 4.80 H, Direct Bilirubin 3.74 H, AST 420 H, ALT 109 H, Alkaline Phosphatase 889 H, Troponin I High Sens 16, B-Natriuretic Peptide 173.0 H, Total Protein 6.3 L, Albumin 2.2 L, Globulin 4.1, Lipase 150 H 08/13/23 12:25: Urine Color Yellow, Urine Clarity Sl. Cloudy, Urine pH 5.0, Ur Specific [place] 1.020, Urine Protein 15 H, Urine Glucose (UA) Normal, Urine Ketones 5 H, Urine Occult Blood 25 H, Urine Nitrite Negative, Urine Bilirubin 1 H, Urine Urobilinogen 1 H, Ur Leukocyte Esterase Negative, Urine RBC 0 SEEN, Urine WBC 0-5 SEEN, Ur Squamous Epith Cells 0 SEEN, Urine Bacteria 0 SEEN, Hyaline Casts 0-5 SEEN, Urine Mucus 0 SEEN 08/13/23 16:35: Ammonia < 10.0 L 08/14/23 06:45: Sodium 131 L, Potassium 4.5, Chloride 99, Carbon Dioxide 24.0, Anion Gap 8, BUN 78 H, Creatinine 1.50 H, Estim Creat Clear Calc 34.89, Est GFR (MDRD) Af Amer 58 L, Est GFR (MDRD) Non-Af 48 L, BUN/Creatinine Ratio 52.0 H, Glucose 87, Calcium 9.3, Total Bilirubin 3.90 H, AST 383 H, ALT 99 H, Alkaline Phosphatase 723 H, Total Protein 5.4 L, Albumin 1.9 L, Globulin 3.5, Albumin/Globulin Ratio 0.5 L Radiography Diagnostic Testing: Radiology Impression Brain CT 08/13/23 11:46 IMPRESSION: Negative head/brain CT without intravenous contrast and unchanged when compared to 10/31/2020. Electronically Signed: Abdirahman Alcantar MD at 13:08 EST , Chest X-Ray 08/13/23 11:46 IMPRESSION: 1. No acute cardiopulmonary pathology. 2. Increased elevation of right hemidiaphragm suspicious for right phrenic nerve paresis. Electronically Signed: Abdirahman Alcantar MD at 15:11 EST , Abdomen/Pelvis CT 08/13/23 11:47 IMPRESSION: 1. Progression and worsening of now diffuse liver metastatic masses, increasing in size and number. 2. New small ascites in the paracolic gutters and central pelvis. This is presumably malignant ascites. 3. Interval right hemicolectomy. 4. 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 This is a benign lesion and unchanged. 5. Colonic diverticulosis, more along the sigmoid colon but no diverticulitis. 6. Benign nonenhancing left posterior renal parenchymal cyst in left renal intrasinus cysts are unchanged. Electronically Signed: Abdirahman Alcantar MD at 13:35 EST , Lumbar Spine CT 08/13/23 11:50 IMPRESSION: 1. No lytic or blastic metastatic disease or acute abnormality of the lumbar spine and the included visualized sacral ala and SI joints. 2. Moderate stenosis of the bilateral L5-S1 intervertebral neural foramina secondary to pronounced L5-S1 degenerative disc space height narrowing, grade 2 anterolisthesis of L5 on S1 and bilateral L5 pars defects. 3. No CT evidence of lumbar extruded disc fragment or disc protrusion. Electronically Signed: Abdirahman Alcantar MD at 13:44 EST , MRCP 08/13/23 17:45 IMPRESSION: No biliary obstruction. Electronically Signed: Tucker Bear MD at 22:48 EST , Assessment & Plan Assessment/Plan (1) Metastasis to liver: PLAN: Plan The patient is an 83 y/o M with admitted on 08/13/23 with history of increased generalized weakness, worse to the BL LE with onset 1-1.5 weeks prior onset of BL LE paresthesias which progressed to weakness and increased difficulty to ambulate. He fell down about 10 days ago and hit his left head and had the stitches on the ear in outside facility. Patient also has chronic pain over right side of abdomen. He came to the hospital with swollen legs which are worse than before. Patient also has decubitus ulcer on the right buttock for about 1 year which opens and closes and is now on diameter of softball. Follows wound care center. No loss of bowel or bladder control. #1. 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 Patient was last seen in oncology clinic by Dr. Weber on 06/23/2023. 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 Immunohistochemistry sequencing shows the tumor to be K-fabio mutated, microsatellite stable with low tumor mutation burden. Initially palliative treatment was offered with modified FOLFOX 6 first-line but did not decline and interested he wanted to try regorafenib which is third line of treatment. Prior authorization was applied. This admission MRCP was done which shows no biliary obstruction. Reported cystic duct, common hepatic duct common bile duct and pancreatic duct normal. Intrahepatic ducts not visualized probably due to extrinsic compression from metastasis. GI is consulted. Furosemide was given for leg swelling. Rah wrap bandage. Hospice referral with patient prefers home if he can return. Comfort care. Lumbar spine CT shows no lytic or blastic metastatic disease or acute abnormality of lumbar spine and sacral dipak and SI joints. Moderate to stenosis of bilateral 5 S1 intervertebral neural foramina due to degenerative disc disease. Grade 2 anterolisthesis of L5 on S1 #2. Acute kidney injury on CKD stage II with history of renal artery stenosis and stent insertion : Admission BUN/Cr 82/1.50, prior baseline creatinine noted to be 0.8-1.0. Conservative management with IV fluid, holding nephrotoxic medications and follow-up labs. #3. Adult failure to thrive, multifactorial, progressively worsening: fall precautions, PT/OT/case not consulted as patient at this point potentially needs intervention but also likely needs placement. #4. HFpEF: 02/06/2023 echocardiogram with normal LV cavity size, normal wall thickness, systolic function normal, EF 60 to 65%, no regional wall motion abno rmalities, normal diastolic function reported despite chart history as noted, mild MV regurgitation. BNP only mildly elevated 173 but no marked findings on CT scan at lung bases with lungs noted to be clear with no marked effusion noted. Holding asa for ERCP potential, holding statin given elevations as noted, continue metoprolol as BP allows. #5. Chronic microcytic anemia: Admission hemoglobin 10.7, MCV 78.1, following with hematology/oncology, baseline hemoglobin appears primarily recently 10 range, stable, continue to trend, continue iron oral supplementations and further interventions per hematology discretion. #6. Hypertension: Continue home regimen including metoprolol, amlodipine, PRN hydralazine. #7. Hyperlipidemia: Holding statin therapy given significant elevations as note d, resume once appropriate. #8. CAD: s/p CABG, temporarily holding baby aspirin for ERCP potential, holding statin given elevations as noted, continue metoprolol as BP allows. #9. Carotid disease: s/p CEA, continue baby aspirin, holding statin given elevations as noted, continue metoprolol as BP allows. #10. AAA with history of thoracic thrombus: Not currently chronically anticoagulated, previous history, temporarily holding baby aspirin for ERCP potential, holding statin given elevations as noted, continue hypertensive therapy as BP allows. #11. Hx TIA: Temporarily holding baby aspirin for ERCP potential, holding statin given elevations as noted, continue metoprolol as BP allows. #12. Former tobacco use: Encourage continued tobacco cessation. #13. Stage I to stage II decubitus right buttock ulcer: Wound RN consulted, encourage offloading, barrier care. #14. ASHA: PAP therapy. #15. DVT prophylaxis: SCDs. #16. CODE status: Patient HCPOA and LW are in place. He daughter is his HCPOA. Discussed CODE status at length including difference between FULL code, DNR-CCA and DNR-CC status. Following discussions about the differences in these status, requested DNR-CC and form signed in preparation for hospice evaluation for home set-up ideally per discussion with him. He is willing to have evaluation for palliative stenting with GI evaluation.
--- NOTE | 2023-08-14 07:32 | CASEMGMT ---
Social Work Hospice order placed, SW spoke w/bedside RN who states referral made and hospice coming at 8am today. FLAKITA Claire
[2023-08-14 08:04] LABS: Differential Indicated SCAN CRITERIA MET
[2023-08-14 08:49] LABS: Anisocytosis 2+; Differential Comment SCANNED; Macrocytosis 1+; Microcytosis 1+
--- NOTE | 2023-08-14 08:51 | EX.PCM.CON.G ---
HPI Consult Data Date of Consult: 08/14/23 HPI Narrative Reason for Consultation: Metastatic colon cancer with jaundice HPI Narrative: PRASANNA INGRAM, is a 83 M who presented with bilateral leg weakness. He has a history of colon cancer with metastasis to liver. He states he is currently receiving palliative care with [facility]. past history of colonic polyps . December 2022 underwent CABG and after recovery from his cardiac surgery he was noted to have developed iron deficiency anemia. April 06, 2023 colonoscopy showed a malignant appearing lesion in the proximal ascending colon and diverticulosis. Fragments of tubulovillous adenoma with focal high-grade dysplasia, carcinoma in situ and focal area suspicious for invasive adenocarcinoma. April 20, 2023 CT abdomen and pelvis: There is decreased attenuation of the liver consistent with steatosis. Multiple small low density nodules are seen throughout the liver. There is a new 1.8 cm x 1.6 cm hypodense nodule in the central portion of the right lobe of the liver. April 26, 2023 MICROSCOPIC DIAGNOSIS A. Liver, core biopsy: Metastatic adenocarcinoma. See comment. B. Right colon, hemicolectomy: Invasive adenocarcinoma x2 (involving cecum and ascending colon). See cancer summary in the comment section. Patient states about 1-1/2 weeks ago he began to have paresthesias of the bilateral legs that is now progressed into generalized weakness. He states its become harder and harder for him to move around. States about 10 days ago he fell striking the left side of his head. He was seen at an outside hospital and received stitches to the ear. He states that he has progressively declined since then. He notes pain in the low left back. He notes pain on the right side of his abdomen which he states is not new. He notes that his legs today are swollen and appear wider than normal. The patient notes that for a year he has had a bedsore on the right buttock that has opened and closed and he states now is about the diameter of a softball. He is not seeing wound care. He denies any loss of bowel or bladder control. He states he can move the legs they are just generally weak. ED included T96.3, heart rate 91, BP 150/60, respiratory rate 16, 100% on room air, CBC with WBC 16.3, hemoglobin 10.7, MCV 78.1, platelet 352 with left shift and lymphopenia, coags with PT 15.8, INR 1.3, PTT 32.6, CMP with sodium 130, chloride 96, BUN/creatinine 82/1.50, calcium 10.2, T. bili 4.80, D bili 3.74, AST/ALT 420/109, alk phos 889, troponin 16, BNP 173, lipase 150, urinalysis noted to be cloudy, specific remedy 1.020, protein 15, ketone 5, occult blood 25, negative nitrite, negative leukocyte Estrace and no evidence of UTI CT brain with no acute intracranial findings, chest x-ray with no acute cardiopulmonary findings, increased elevation right hemidiaphragm suspicious for possibly right phrenic nerve paresis, CT abdomen and pelvis with IV contrast only with progression and worsening of now diffuse liver metastatic masses increasing in size and number, some new small ascites in the paracolic gutters and central pelvis presumably malignant, interval evidence right hemicolectomy, rim-enhancing left adrenal mass not metabolically active on PET scan this likely benign lesion and unchanged, colonic diverticulosis more along the sigmoid colon with no diverticulitis, benign nonenhancing left posterior renal parenchymals CT lumbar spine with no lytic or blastic metastatic disease or acute abnormality of the lumbar spine and the included visualized sacral dipak and SI joints, moderate stenosis of the bilateral L5-S1 intervertebral neural foramina secondary pronounced L5-S1 degenerative disc space height narrowing, grade 2 anterior listhesis of L5-S1 and bilateral L5 pars defects. 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 Alcohol use Anemia Arthritis Back pain Cancer Cardiology follow-up encounter Carotid stenosis, right Colon cancer, ascending Colon polyps Colon tumor Colonic mass Coronary atherosclerosis Diastolic heart failure Diverticulosis Former smoker High cholesterol High cholesterol History of COVID-19 History of diverticulitis History of echocardiogram History of renal artery stenosis History of stent insertion of renal artery History of stress test HTN (hypertension) Hyperlipidemia Hypertension Hypertensive urgency Impaired fasting glucose Iron deficiency anemia due to chronic blood loss Left carpal tunnel syndrome Leg cramps Leg swelling Low iron Metastasis to liver Osteoarthritis Personal history of colonic polyps Pes anserinus bursitis Presence of left atrial appendage closure device Regional lymph node metastasis present Shortness of breath on exertion Sleep apnea Spinal stenosis Spinal stenosis of lumbar region Stenosis of left internal carotid artery Symptomatic stenosis of both carotid arteries Tachycardia Thrombosis of thoracic aorta TIA (transient ischemic attack) Wears dentures Wears glasses Home Medications atorvastatin 80 mg tablet 80 mg PO QHS HDL 11/06/20 [History Last Taken 04/25/23] aspirin 81 mg chewable tablet 81 mg PO DAILY@0800 heart health 04/15/21 [History Last Taken 04/23/23] ascorbate calcium (vitamin C) 500 mg tablet 1 g PO DAILY supplement 03/09/23 [History Last Taken 04/22/23] calcium carbonate 600 mg calcium (1,500 mg) tablet 600 mg PO BID supplement 03/09/23 [History Last Taken 04/22/23] cholecalciferol (vitamin D3) 125 mcg (5,000 unit) capsule 125 mcg PO DAILY supplement 03/09/23 [History Last Taken 04/22/23] melatonin 10 mg tablet 10 mg PO HS sleep 03/09/23 [History Last Taken Unknown] ferrous gluconate 324 mg (38 mg iron) tablet 324 mg PO DAILY supplement 03/16/23 [History Last Taken 04/26/23 04:00] metoprolol tartrate 50 mg tablet 50 mg PO BID blood pressure 03/16/23 [History Last Taken 04/26/23 04:00] amlodipine 10 mg tablet 10 mg PO DAILY bp #90 tabs 03/17/23 [Rx Last Taken 04/26/23 04:00] oxycodone 5 mg tablet 5 mg PO Q6H PRN pain 06/14/23 [History Last Taken Unknown] dronabinol 2.5 mg capsule 2.5 mg PO QHS appetite 08/13/23 [History Last Taken Unknown] Allergy/AdvReac Type Severity Reaction Status Date / Time Penicillins Allergy Other Verified 08/13/23 11:04 Family History Father Heart disease Myocardial infarction 65 Cancer liver Mother Diabetes Emphysema lung Brother Diabetes Sister Cancer Lymphoma (?) Surgical History H/O carotid endarterectomy H/O carotid endarterectomy History of angioplasty History of cardiac catheterization History of carotid endarterectomy History of colonoscopy History of coronary artery bypass graft (~01/2023) History of heart surgery History of stent insertion of renal artery S/P colectomy Status post left knee replacement Social History (Updated 08/13/23 @ 18:[address] Maureen Steele MD) household members: none Smoking Status: Former smoker quit date: 08/16/00 pack-years: 45 Tobacco: How many years used: 30 how long ago did patient quit smoking: smoked 1-1.5ppd x 30 yrs; quit 22-23 years ago alcohol intake: former substance use type: does not use caffeine: Yes ROS ROS Narrative Admission Review of Systems: CONSTITUTIONAL: No weight loss, fever, chills, + weakness or fatigue. HEENT: Eyes: No visual loss, blurred vision, double vision or yellow sclerae. Ears, Nose, Throat: No hearing loss, sneezing, congestion, runny nose or sore throat. SKIN: No rash or itching, lesions, wounds, + occasional staged ecchymoses, abrasion, stasis skin changes to lower extremities. CARDIOVASCULAR: + Increasing edema to lower extremities. No chest pain, chest pressure or chest discomfort, palpitations, orthopnea, syncopal events. RESPIRATORY: + Mild shortness of breath primarily with exertion. No cough or sputum, wheezing, hemoptysis. GASTROINTESTINAL: + anorexia, abdomninal pain. No nausea, vomiting, diarrhea, melena, BRBPR. GENITOURINARY: No dysuria, frequency, urgency or retention. NEUROLOGICAL: No headache, dizziness, syncope, paralysis, ataxia, numbness or tingling in the extremities, focal weakness, change in bowel or bladder control, seizure. MUSCULOSKELETAL: + muscle, back pain, joint pain or stiffness. HEMATOLOGIC: + anemia, bleeding/bruising. LYMPHATICS: No enlarged nodes. No history of splenectomy. PSYCHIATRIC: No history of depression or anxiety. ENDOCRINOLOGIC: No reports of sweating, cold or heat intolerance. No polyuria or polydipsia. ALLERGIES: No history of asthma, hives, eczema or rhinitis. Physical Exam Narrative Physical Examination: General: Awake, alert, oriented x 3 and cooperative, seated upright in the ED bed, fatigued, jaundiced appearing. Skin: Jaundiced with scleral icterus present, normal turgor, no cyanosis, occasional staged ecchymoses, abrasion, bilateral lower extremity stasis skin changes. HEENT: AT/NC, EOMI, PERRLA, mildly dry MM, no carotid bruits or JVD noted. Lungs: Diminished, greater base is, proper effort, no rales, ronchi or wheezing. Heart: Regular rate and rhythm; no gallop, rub audible. Abdomen: Soft, discomfort primarily to right upper quadrant and right lower quadrant palpation but no rebound or guarding, hyperactive BS, difficult to appreciate distention, positive HM. Extremities: No cyanosis, no clubbing, pedal to upper extremity pitting edema present, see skin. Neurological: Patient awake, alert, oriented as noted, cognitive function intact; pupils equally reactive to light and accommodation, cranial nerves grossly normal, moving all 4 extremities, no focal deficits, strength moderately to severely globally decreased. Psychiatric: Affect appears flat, fatigued, no acute evidence of depressive or anxiety feelings. Lab / Micro Data 08/14/23 06:45 08/14/23 06:45 Labs: Laboratory Results - last 24 hr 08/13/23 12:00: WBC 16.3 H, RBC 4.07 L, Hgb 10.7 L, Hct 31.8 L, MCV 78.1 L, MCH 26.3 L, MCHC 33.6, RDW Std Deviation 53.4 H, RDW Coeff of Claudia 19.9 H, Plt Count 352, MPV 10.3, Immature Gran % (Auto) 0.800, Neut % (Auto) 88.0 H, Lymph % (Auto) 2.9 L, [place] % (Auto) 7.3, Eos % (Auto) 0.7, Baso % (Auto) 0.3, Absolute Neuts (auto) 14.4 H, Absolute Lymphs (auto) 0.48 L, Nucleated RBC % 0, Differential Comment COMMENT, PT 15.8 H, INR 1.3, APTT 32.6, Sodium 130 L, Potassium 4.6, Chloride 96 L, Carbon Dioxide 24.0, Anion Gap 10, BUN 82 H, Creatinine 1.50 H, Estim Creat Clear Calc 34.89, Est GFR (MDRD) Af Amer 58 L, Est GFR (MDRD) Non-Af 48 L, BUN/Creatinine Ratio 54.7 H, Glucose 104, Calcium 10.2 H, Phosphorus 3.8, Magnesium 2.7 H, Total Bilirubin 4.80 H, Direct Bilirubin 3.74 H, AST 420 H, ALT 109 H, Alkaline Phosphatase 889 H, Troponin I High Sens 16, B-Natriuretic Peptide 173.0 H, Total Protein 6.3 L, Albumin 2.2 L, Globulin 4.1, Lipase 150 H 08/13/23 12:25: Urine Color Yellow, Urine Clarity Sl. Cloudy, Urine pH 5.0, Ur Specific [place] 1.020, Urine Protein 15 H, Urine Glucose (UA) Normal, Urine Ketones 5 H, Urine Occult Blood 25 H, Urine Nitrite Negative, Urine Bilirubin 1 H, Urine Urobilinogen 1 H, Ur Leukocyte Esterase Negative, Urine RBC 0 SEEN, Urine WBC 0-5 SEEN, Ur Squamous Epith Cells 0 SEEN, Urine Bacteria 0 SEEN, Hyaline Casts 0-5 SEEN, Urine Mucus 0 SEEN 08/13/23 16:35: Ammonia < 10.0 L 08/14/23 06:45: WBC 12.0 H, RBC 3.81 L, Hgb 9.9 L, Hct 29.9 L, MCV 78.5 L, MCH 26.0 L, MCHC 33.1, RDW Std Deviation 55.2 H, RDW Coeff of Claudia 20.7 H, Plt Count 311, MPV 10.6, Immature Gran % (Auto) 0.300, Neut % (Auto) 80.5 H, Lymph % (Auto) 7.5 L, [place] % (Auto) 9.6, Eos % (Auto) 1.8, Baso % (Auto) 0.3, Absolute Neuts (auto) 9.7 H, Absolute Lymphs (auto) 0.90, Nucleated RBC % 0, Differential Comment SCANNED, Anisocytosis 2+, Microcytosis 1+, Macrocytosis 1+, Sodium 131 L, Potassium 4.5, Chloride 99, Carbon Dioxide 24.0, Anion Gap 8, BUN 78 H, Creatinine 1.50 H, Estim Creat Clear Calc 34.89, Est GFR (MDRD) Af Amer 58 L, Est GFR (MDRD) Non-Af 48 L, BUN/Creatinine Ratio 52.0 H, Glucose 87, Calcium 9.3, Total Bilirubin 3.90 H, AST 383 H, ALT 99 H, Alkaline Phosphatase 723 H, Total Protein 5.4 L, Albumin 1.9 L, Globulin 3.5, Albumin/Globulin Ratio 0.5 L Imagaing Radiology Impression Brain CT 08/13/23 11:46 IMPRESSION: Negative head/brain CT without intravenous contrast and unchanged when compared to 10/31/2020. Electronically Signed: Abdirahman Alcantar MD at 13:08 EST , Chest X-Ray 08/13/23 11:46 IMPRESSION: 1. No acute cardiopulmonary pathology. 2. Increased elevation of right hemidiaphragm suspicious for right phrenic nerve paresis. Electronically Signed: Abdirahman Alcantar MD at 15:11 EST Reading Location ID and State: [facility] / [place] , Service support , Abdomen/Pelvis CT 08/13/23 11:47 IMPRESSION: 1. Progression and worsening of now diffuse liver metastatic masses, increasing in size and number. 2. New small ascites in the paracolic gutters and central pelvis. This is presumably malignant ascites. 3. Interval right hemicolectomy. 4. 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 This is a benign lesion and unchanged. 5. Colonic diverticulosis, more along the sigmoid colon but no diverticulitis. 6. Benign nonenhancing left posterior renal parenchymal cyst in left renal intrasinus cysts are unchanged. Electronically Signed: Abdirahman Alcantar MD at 13:35 EST Reading Location ID and State: [facility] / [place] , Service support , Lumbar Spine CT 08/13/23 11:50 IMPRESSION: 1. No lytic or blastic metastatic disease or acute abnormality of the lumbar spine and the included visualized sacral ala and SI joints. 2. Moderate stenosis of the bilateral L5-S1 intervertebral neural foramina secondary to pronounced L5-S1 degenerative disc space height narrowing, grade 2 anterolisthesis of L5 on S1 and bilateral L5 pars defects. 3. No CT evidence of lumbar extruded disc fragment or disc protrusion. Electronically Signed: Abdirahman Alcantar MD at 13:44 EST , MRCP 08/13/23 17:45 IMPRESSION: No biliary obstruction. Electronically Signed: Tucker Bear MD at 22:48 EST , Assessment & Plan Assessment/Plan (1) Metastasis to liver: PLAN: Plan The patient is an 83-year-old with history of CAD s/p CABG, Metastatic Colon CA s/p colectomy, presents to the [facility] ED on 08/13/23 with history of increased generalized weakness, worse to the BL LE. LFTs are consistent with a cholestatic hepatitis and obstructive jaundice secondary to metastatic colon cancer to the liver. MRCP ordered did not show any signs of obstructive lesions that may be amenable to stenting or bypassing via therapeutic ERCP Acute transaminitis and hyperbilirubinemia w/ Metastatic Colon Cancer (Adenocarcinoma) to Liver with suspected Obstructive process: He has not shown any signs of cholangitis at this time and typically with metastatic colon cancer to the liver you exhibit a more pseudocirrhosis which I believe he is experiencing due to infiltrative disease. Agree with palliative care as he has a very poor prognosis. I do not think he would benefit from any endoscopic procedure at this time. Charges/Coding Visit Charges Inpatient E&M: 52535 Init Hosp L3
--- NOTE | 2023-08-14 09:23 | NURSING ---
0815-hospice here to see pt
[2023-08-14 10:00] VITALS: BP 111/52; PULSE 73; RESP 16; TEMP 36.6; O2SAT 95
[2023-08-14 10:23] VITALS: PULSE 73
[2023-08-14] MEDS: amLODIPine 10 MG Tablet PO (10:23)
[2023-08-14] MEDS: Metoprolol Tartrate 50 MG Tablet PO (10:23)
[2023-08-14] MEDS: Ferrous Gluconate 324 MG Tablet PO (10:23)
[2023-08-14] MEDS: Ascorbic Acid 500 MG Tablet 1000 MG PO (10:23)
[2023-08-14] MEDS: Menthol/Lanolin/Calamine/Znox 113 GM Tube 1 APPLIC TOPICAL (10:24)
[2023-08-14] MEDS: Pantoprazole Sodium 40 MG in 0.9% Normal Saline (100mL MB+) 100 ML 330 MG IV (10:28)
[2023-08-14] MEDS: oxyCODONE 5 MG Tablet PO (10:28)
[2023-08-14] MEDS: 0.9% Saline Lock 10 ML Syringe IV (10:29)
[2023-08-14] MEDS: Acetaminophen 325 MG Tablet 650 MG PO (10:30)
--- NOTE | 2023-08-14 11:38 | DCINST_ITS ---
Discharge Instructions Diet Discharge Diet: Light diet - advance as tolerated (Soft and bite sized food.) Activity Discharge Activity: - (Patient is under home hospice care.) Dressing / Incision Call your doctor if you observe: - (Patient and her home hospice care.) Follow Up Care Test Results: Test results from this visit will be discussed in further detail at your follow- up appointment, if applicable. Discharge Plan Admission Admit Date/Time: 08/13/23 17:23 Primary Reason for Your Visit: Ascending colon adenocarcinoma with extensive liver metastasis. Attending Provider: Jaquan Sandra Primary Care Provider: Page Fernandez Consulting Providers: Dex Waller; Karma Valentin; Mariya Humphrey; Judi Madrid NP; Maureen Steele Discharge Orders/Prescriptions Prescriptions: New sennosides-docusate sodium [Stool Softener-Stimulant Laxat] 8.6-50 mg Tablet 2 tab PO BID PRN PRN (Reason: Constipation) Qty: 0 0RF Continued atorvastatin 80 mg tablet 80 mg PO QHS calcium carbonate 600 mg calcium (1,500 mg) tablet 600 mg PO BID ascorbate calcium (vitamin C) 500 mg tablet 1 g PO DAILY cholecalciferol (vitamin D3) 125 mcg (5,000 unit) capsule 125 mcg PO DAILY melatonin 10 mg tablet 10 mg PO HS ferrous gluconate 324 mg (38 mg iron) tablet 324 mg PO DAILY Patient Comments: take 1 tablet by mouth once daily metoprolol tartrate 50 mg tablet 50 mg PO BID Patient Comments: take 1 tablet by mouth twice a day amlodipine 10 mg tablet 10 mg PO DAILY Qty: 90 3RF oxycodone 5 mg tablet 5 mg PO Q6H PRN (Reason: pain) aspirin 81 MG tablet,chewable 81 mg PO DAILY@0800 Patient Comments: will stop taking 2 days before surgery dronabinol 2.5 mg capsule 2.5 mg PO QHS Referrals / Follow Up: Page Fernandez NP-C [Primary Care Provider] - Disposition Disposition (needs filled in before D/C Order can be placed): Hospice in Home
[2023-08-14 11:39] VITALS: BP 104/43; PULSE 60; RESP 15; TEMP 36.7; O2SAT 96
--- NOTE | 2023-08-14 14:41 | DS.PCM_ITS ---
Providers Date of Admission: 08/13/23 Date of Discharge: 08/14/23 Primary Care Physician: TRAMAINE Fuller Consultations 08/13/23 16:29 Consult: Hospice / Palliative Care Routine Consulting Provider: [facility] Reason for Consult: Terminal Colon Cancer with Mets EMERGENT Consult: Yes MD Notified: Yes Date Notified: 08/13/23 Time Notified: 16:29 Method of Notification: ED Physician Initiated 08/13/23 18:20 Consult: Gastroenterology Routine Consulting Provider: [facility] Reason for Consult: Consideration palliative stenting EMERGENT Consult: No MD Notified: Yes Date Notified: 08/13/23 Time Notified: 17:38 Method of Notification: Verbal Consult: Hospice / Palliative Care Routine Consulting Provider: [facility] Reason for Consult: Hospice set-up, patient interested in home hospice if able. EMERGENT Consult: No Notified: Yes Date Notified: 08/13/23 Time Notified: 18:35 Method of Notification: Answering Service Consult: Onc/Wound/transportation lead Routine Comment: Reason for Consult:: R buttock decub., stitches to left ear need removed per pt Reason For Visit: METASTATIC CA, OBSTRUCTIVE JAUNDICE Diagnosis Discharge Diagnosis (1) Metastasis to liver: Status: Acute Code(s): C78.7 - Secondary malignant neoplasm of liver and intrahepatic bile duct Plan The patient is an 83 y/o M with admitted on 08/13/23 with history of increased generalized weakness, worse to the BL LE with onset 1-1.5 weeks prior onset of BL LE paresthesias which progressed to weakness and increased difficulty to ambulate. He fell down about 10 days ago and hit his left head and had the stitches on the ear in outside facility. Patient also has chronic pain over right side of abdomen. He came to the hospital with swollen legs which are worse than before. Patient also has decubitus ulcer on the right buttock for a bout 1 year which opens and closes and is now on diameter of softball. Follows wound care center. No loss of bowel or bladder control. #1. Acute liver injury on chronic liver disease due to multiple liver metastasis from metastatic ascending Colon Cancer (Adenocarcinoma) : Patient is being admitted on [facility] floor. Patient was last seen in oncology clinic by Dr. Weber on 06/23/2023. 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 Immunohistochemistry sequencing shows the tumor to be K-fabio mutated, microsatellite stable with low tumor mutation burden. Initially palliative treatment was offered with modified FOLFOX 6 first-line but did not decline and interested he wanted to try regorafenib which is third line of treatment. Prior authorization was applied. This admission MRCP was done which shows no biliary obstruction. Reported cystic duct, common hepatic duct common bile duct and pancreatic duct normal. Intrahepatic ducts not visualized probably due to extrinsic compression from metastasis. GI is consulted. Furosemide was given for leg swelling. Rah wrap bandage. Hospice referral with patient prefers home if he can return. Comfort care. Lumbar spine CT shows no lytic or blastic metastatic disease or acute abnormality of lumbar spine and sacral dipak and SI joints. Moderate to stenosis of bilateral 5 S1 intervertebral neural foramina due to degenerative disc disease. Grade 2 anterolisthesis of L5 on S1 Patient is on oxycodone. He states he want to go back home with home hospice. Patient is discharged. #2. Acute kidney injury on CKD stage II with history of renal artery stenosis and stent insertion : Admission BUN/Cr 82/1.50, prior baseline creatinine noted to be 0.8-1.0. Conservative management with IV fluid, holding nephrotoxic me dications and follow-up labs. #3. Adult failure to thrive, multifactorial, progressively worsening: fall precautions, PT/OT/case not consulted as patient at this point potentially needs intervention but also likely needs placement. #4. HFpEF: 02/06/2023 echocardiogram with normal LV cavity size, normal wall thickness, systolic function normal, EF 60 to 65%, no regional wall motion abnormalities, normal diastolic function reported despite chart history as noted, mild MV regurgitation. BNP only mildly elevated 173 but no marked findings on CT scan at lung bases with lungs noted to be clear with no marked effusion noted. Holding asa for ERCP potential, holding statin given elevations as noted, continue metoprolol as BP allows. #5. Chronic microcytic anemia: Admission hemoglobin 10.7, MCV 78.1, following with hematology/oncology, baseline hemoglobin appears primarily recently 10 rang e, stable, continue to trend, continue iron oral supplementations and further interventions per hematology discretion. #6. Hypertension: Continue home regimen including metoprolol, amlodipine, PRN h ydralazine. #7. Hyperlipidemia: Continue statin. #8. CAD: s/p CABG, temporarily holding baby aspirin for ERCP potential, holding statin given elevations as noted, continue metoprolol as BP allows. #9. Carotid disease: s/p CEA, continue baby aspirin, holding statin given elevations as noted, continue metoprolol as BP allows. #10. AAA with history of thoracic thrombus: Not currently chronically anticoagulated, previous history, temporarily holding baby aspirin for ERCP potential, holding statin given elevations as noted, continue hypertensive therapy as BP allows. #11. Hx TIA: Continue baby aspirin and continue statin if patient cannot tolerate but patient is on home hospice care. #12. Former tobacco use: Encourage continued tobacco cessation. #13. Stage I to stage II decubitus right buttock ulcer: Wound RN consulted, encourage offloading, barrier care. Follows with wound care clinic. #14. ASHA: PAP therapy. #15. DVT prophylaxis: SCDs. #16. CODE status: Patient HCPOA and LW are in place. He daughter is his HCPOA. Discussed CODE status at length including difference between FULL code, DNR-CCA and DNR-CC status. Following discussions about the differences in these status, requested DNR-CC and form signed in preparation for hospice evaluation for home set-up ideally per discussion with him. He is willing to have evaluation for palliative stenting with GI evaluation. Discharge medication reconciliation done. Discharge follow-up instructions completed. Discharge process discussed with the patient and all questions were answered to patient's satisfaction. Follow with PCP in 1 to 2 weeks Total time spent, exact 35 minutes on discharge meds reconciliation, examination, coordination of care with nurses and ancillary staff, review of imaging and blood test and discussion with the patient on follow-up instructions. Medications at Discharge Home Medications atorvastatin 80 mg tablet 80 mg PO QHS HDL 11/06/20 aspirin 81 mg chewable tablet 81 mg PO DAILY@0800 heart health 04/15/21 ascorbate calcium (vitamin C) 500 mg tablet 1 g PO DAILY supplement 03/09/23 calcium carbonate 600 mg calcium (1,500 mg) tablet 600 mg PO BID supplement 03/09/23 cholecalciferol (vitamin D3) 125 mcg (5,000 unit) capsule 125 mcg PO DAILY supplement 03/09/23 melatonin 10 mg tablet 10 mg PO HS sleep 03/09/23 ferrous gluconate 324 mg (38 mg iron) tablet 324 mg PO DAILY supplement 03/16/23 metoprolol tartrate 50 mg tablet 50 mg PO BID blood pressure 03/16/23 amlodipine 10 mg tablet 10 mg PO DAILY bp #90 tabs 03/17/23 oxycodone 5 mg tablet 5 mg PO Q6H PRN pain 06/14/23 dronabinol 2.5 mg capsule 2.5 mg PO QHS appetite 08/13/23 sennosides 8.6 mg-docusate sodium 50 mg tablet (Stool Softener-Stimulant Laxative) 2 tab PO BID PRN PRN Constipation #0 tabs 08/14/23 Physical Exam Narrative Seen and examined. Patient is under home hospice care for metastatic colon cancer with liver mets. Admitted with obstructive jaundice. Mixed hepatocellular and cholestatic liver chemistry picture but predominantly cholestatic pattern. Patient also has decubitus ulcer and follows wound care clinic. Physical exam General: Alert, Oriented x3, Cooperative HEENT: Atraumatic, PERRLA, EOMI, Normocephalic Oral: No Gingival or Mucosal Lesions/ Ulcerations Neck: Supple, No JVD, Negative Carotid Bruits Lungs: Air entry diminished in bilateral lung bases. No crepitation/rhonchi Cardiovascular: Regular rate, Regular Rhythm, Normal S1, Normal S2, No murmurs Abdomen: Bowel Sounds Present, Soft, Non Tender, Non-Distended : No renal angle tenderness. No suprapubic tenderness. Extremities: Ecchymosis over skin, thinning skin. Lower extremity venous stasis changes., Capillary Refill Less than 3 Seconds Skin: Buttock/sacral decubitus ulcer, stage II. Dressing was applied. Musculoskeletal/spine: Tenderness over spine/paraspinal region and buttock region. Loss of subcutaneous fat and moderate muscle atrophy. Neurological: Cranial nerves II-XII grossly intact, DTR 2+/4. No acute focal neurological deficit. Psych/Mental Status: Flat affect. Weight / BMI Weight Weight: 170 lb 14.4 oz Body Mass Index (BMI) 26.8 ABG / Lab / Microbiology Data 08/14/23 06:45 08/14/23 06:45 Laboratory: Laboratory Results - last 24 hr 08/13/23 12:00: Phosphorus 3.8, Magnesium 2.7 H 08/13/23 16:35: Ammonia < 10.0 L 08/14/23 06:45: WBC 12.0 H, RBC 3.81 L, Hgb 9.9 L, Hct 29.9 L, MCV 78.5 L, MCH 26.0 L, MCHC 33.1, RDW Std Deviation 55.2 H, RDW Coeff of Claudia 20.7 H, Plt Count 311, MPV 10.6, Immature Gran % (Auto) 0.300, Neut % (Auto) 80.5 H, Lymph % (Auto) 7.5 L, Moca % (Auto) 9.6, Eos % (Auto) 1.8, Baso % (Auto) 0.3, Absolute Neuts (auto) 9.7 H, Absolute Lymphs (auto) 0.90, Nucleated RBC % 0, Differential Comment SCANNED, Anisocytosis 2+, Microcytosis 1+, Macrocytosis 1+, Sodium 131 L , Potassium 4.5, Chloride 99, Carbon Dioxide 24.0, Anion Gap 8, BUN 78 H, Creatinine 1.50 H, Estim Creat Clear Calc 34.89, Est GFR (MDRD) Af Amer 58 L, Est GFR (MDRD) Non-Af 48 L, BUN/Creatinine Ratio 52.0 H, Glucose 87, Calcium 9.3, Total Bilirubin 3.90 H, AST 383 H, ALT 99 H, Alkaline Phosphatase 723 H, Total Protein 5.4 L, Albumin 1.9 L, Globulin 3.5, Albumin/Globulin Ratio 0.5 L Radiography Diagnostic Testing: Radiology Impression Chest X-Ray 08/13/23 11:46 IMPRESSION: 1. No acute cardiopulmonary pathology. 2. Increased elevation of right hemidiaphragm suspicious for right phrenic nerve paresis. Electronically Signed: Abdirahman Alcantar MD at 15:11 EST , MRCP 08/13/23 17:45 IMPRESSION: No biliary obstruction. Electronically Signed: Tucker Bear MD at 22:48 EST , D/C Instructions Discharge Diet: Light diet - advance as tolerated (Soft and bite sized food.) Call your doctor if you observe: - (Patient and her home hospice care.) Meaningful Use Info Meaningful Use Diagnoses (Choose all that apply): None applicable Discharge Plan Admission Admit Date/Time: 08/13/23 17:23 Primary Reason for Your Visit: Ascending colon adenocarcinoma with extensive liver metastasis. Attending Provider: Jaquan Sandra Primary Care Provider: Page Fernandez Consulting Providers: Dex Waller; Karma Valentin; Mariya Humphrey; Judi Madrid NP; Maureen Steele Discharge Orders/Prescriptions Prescriptions: New sennosides-docusate sodium [Stool Softener-Stimulant Laxat] 8.6-50 mg Tablet 2 tab PO BID PRN PRN (Reason: Constipation) Qty: 0 0RF Continued atorvastatin 80 mg tablet 80 mg PO QHS calcium carbonate 600 mg calcium (1,500 mg) tablet 600 mg PO BID ascorbate calcium (vitamin C) 500 mg tablet 1 g PO DAILY cholecalciferol (vitamin D3) 125 mcg (5,000 unit) capsule 125 mcg PO DAILY melatonin 10 mg tablet 10 mg PO HS ferrous gluconate 324 mg (38 mg iron) tablet 324 mg PO DAILY Patient Comments: take 1 tablet by mouth once daily metoprolol tartrate 50 mg tablet 50 mg PO BID Patient Comments: take 1 tablet by mouth twice a day amlodipine 10 mg tablet 10 mg PO DAILY Qty: 90 3RF oxycodone 5 mg tablet 5 mg PO Q6H PRN (Reason: pain) aspirin 81 MG tablet,chewable 81 mg PO DAILY@0800 Patient Comments: will stop taking 2 days before surgery dronabinol 2.5 mg capsule 2.5 mg PO QHS Referrals / Follow Up: Page Fernandez, [id number] [Primary Care Provider] - Disposition Disposition (needs filled in before D/C Order can be placed): Hospice in Home Charges/Coding Visit Charges Inpatient E&M: 47436 Disch Hosp >30min
--- NOTE | 2023-08-14 15:34 | NURSING ---
HOSPICE NOTIFIED OF PTS DC TO HOME
[2023-08-14 20:25] LABS: GGTP 587 U/L (15-85)
== END 2023-08-14 15:20 | disposition hospice, home (50) | DRG 436 ==
LOC: ED 17:17 → MS3 17:32
PROVIDERS: Admitting Provider Family Medicine; Emergency Provider Emergency Medicine; PCP Nurse Practitioner Family; Visit Provider Internal Medicine
DX: C78.7 Secondary malignant neoplasm of liver and intrahepatic bile duct (principal); C78.5 Secondary malignant neoplasm of large intestine and rectum; I13.0 Hypertensive heart and chronic kidney disease with heart failure and stage 1 through stage 4 chronic kidney disease, or unspecified chronic kidney disease; R18.8 Other ascites; N17.9 Acute kidney failure, unspecified; I50.32 Chronic diastolic (congestive) heart failure; C18.2 Malignant neoplasm of ascending colon; C78.6 Secondary malignant neoplasm of retroperitoneum and peritoneum; L89.152 Pressure ulcer of sacral region, stage 2; L89.312 Pressure ulcer of right buttock, stage 2; D50.9 Iron deficiency anemia, unspecified; M43.17 Spondylolisthesis, lumbosacral region; N18.2 Chronic kidney disease, stage 2 (mild); G47.33 Obstructive sleep apnea (adult) (pediatric); I25.10 Atherosclerotic heart disease of native coronary artery without angina pectoris; E78.5 Hyperlipidemia, unspecified; I16.0 Hypertensive urgency; Z79.82 Long term (current) use of aspirin; Z86.16 Personal history of COVID-19; Z87.891 Personal history of nicotine dependence; Z51.5 Encounter for palliative care; Z86.010 Personal history of colon polyps; R62.7 Adult failure to thrive; Z86.73 Personal history of transient ischemic attack (TIA), and cerebral infarction without residual deficits; Z68.29 Body mass index [BMI] 29.0-29.9, adult
CPT/HCPCS: 70450; 71045; 72131; 74177; 74181; 80048; 80053; 80076; 81001; 82140; 82977; 83690; 83735; 83880; 84100; 84484; 85025; 85610; 85730; 93005; 94668; 99252; 99284; J7050; Q9967; A4216; G0463; J1940